=== PATIENT | female | born 1955 | race Caucasian/White ===

== ENCOUNTER 2016-08-16 14:42 | Outpatient (CLI) | payer MEDICARE | END 2016-08-16 14:43 | disposition home or self-care (01) | DX: M19.071 Primary osteoarthritis, right ankle and foot (principal); M20.11 Hallux valgus (acquired), right foot; M79.671 Pain in right foot ==

== ENCOUNTER 2016-08-23 09:02 | Outpatient (CLI) | payer MEDICARE | END 2016-08-23 09:03 | disposition home or self-care (01) | DX: E78.5 Hyperlipidemia, unspecified (principal); E03.9 Hypothyroidism, unspecified; R10.9 Unspecified abdominal pain ==

== ENCOUNTER 2017-02-22 13:14 | Outpatient (CLI) | payer MEDICARE ==
[2017-02-22 18:46] LABS: THYROID STIMULATING HORMONE 0.56 uIU/mL (0.34-5.60)
[2017-02-22 19:29] LABS: ALBUMIN/GLOBULIN RATIO 1.5 (1.0-2.2); BILIRUBIN,TOTAL 0.7 mg/dL (0.2-1.0); CALCIUM 9.1 mg/dL (8.5-10.3); CREATININE 1.1 mg/dL (0.4-1.0); POTASSIUM 3.7 mmol/L (3.5-5.0); TOTAL PROTEIN 6.6 g/dL (6.7-8.2)
== END 2017-02-22 13:15 | disposition home or self-care (01) ==
LOC: LAB.F 13:14
PROVIDERS: ATTEND Physician Assistant
DX: E03.9 Hypothyroidism, unspecified (principal)
CPT/HCPCS: 36415; 80053; 84436; 84443

== ENCOUNTER 2017-04-11 13:04 | Outpatient (CLI) | payer MEDICARE | END 2017-04-11 13:05 | disposition home or self-care (01) | LOC: SC 13:04 | PROVIDERS: ATTEND Internal Medicine Pulmonary Disease | DX: G47.10 Hypersomnia, unspecified (principal); G47.8 Other sleep disorders; R51 Headache; R06.83 Snoring | CPT/HCPCS: 99203; G0463; 99212 ==

== ENCOUNTER 2017-08-28 13:33 | Outpatient (CLI) | payer MEDICARE | END 2017-08-28 13:34 | disposition home or self-care (01) | LOC: SC 13:33 | PROVIDERS: ATTEND Internal Medicine Pulmonary Disease | DX: G47.00 Insomnia, unspecified (principal); R53.83 Other fatigue | CPT/HCPCS: 99214; G0463; 99212 ==

== ENCOUNTER 2017-09-05 11:59 | Outpatient (CLI) | payer MEDICARE ==
--- NOTE | 2017-09-06 13:25 | Mammography Report ---
DIGITAL SCREENING MAMMOGRAM: 09/05/2017 CLINICAL INDICATION: A 62-year-old nulliparous patient, for screening. COMPARISON: 06/2014, 04/2013, 02/2012, 09/2008. TECHNIQUE: Routine CC and MLO projections were obtained of the breasts. FINDINGS: Parenchymal tissue within the breasts is predominantly fatty replaced. There are no dominant masses, suspicious microcalcifications, or secondary signs of malignancy. In comparison to the previous studies, there are no significant changes. IMPRESSION: NO MAMMOGRAPHIC EVIDENCE OF MALIGNANCY. NO SIGNIFICANT INTERVAL CHANGES. RECOMMENDATION: Screening mammography is recommended annually. BIRADS category 1 - negative. STANDARD QUALIFYING STATEMENTS: 1. This examination was reviewed with the aid of Computed-Aided Detection (CAD). 2. A negative or benign imaging report should not delay biopsy if clinically suspicious findings are present. Consider surgical consultation if warranted. More than 5% of cancers are not identified by imaging. 3. Dense breasts may obscure an underlying neoplasm. TD: 09/06/2017 13:24
== END 2017-09-05 12:00 | disposition home or self-care (01) ==
LOC: DI 11:59
PROVIDERS: ATTEND Physician Assistant
DX: Z12.31 Encounter for screening mammogram for malignant neoplasm of breast (principal)
CPT/HCPCS: 77067

== ENCOUNTER 2017-09-11 07:32 | Outpatient (CLI) | payer MEDICARE ==
[2017-09-11 08:27] LABS: BASOPHILS # (AUTO) 0.1 10^3/uL (0.0-0.1); BASOPHILS % (AUTO) 0.6 %; EOSINOPHILS # (AUTO) 0.2 10^3/uL (0.0-0.7); EOSINOPHILS % (AUTO) 1.7 %; HGB - HEMOGLOBIN 15.9 g/dL (12.0-16.0); LYMPHOCYTES # (AUTO) 4.1 10^3/uL (1.5-3.5); LYMPHOCYTES % (AUTO) 36.8 %; MEAN CORPUSCULAR HEMOGLOBIN 30.3 pg (27.0-31.0); MEAN CORPUSCULAR HGB CONC 33.9 g/dL (32.0-36.0); MEAN CORPUSCULAR VOLUME 89.3 fL (81.0-99.0); MEAN PLATELET VOLUME 6.1 fL (7.9-10.8); MONOCYTES # (AUTO) 0.8 10^3/uL (0.0-1.0); MONOCYTES % (AUTO) 7.3 %; NEUTROPHILS % (AUTO) 53.6 %; PLT - PLATELET COUNT 356 10^3/uL (130-450); RED BLOOD COUNT 5.26 10^6/uL (4.20-5.40); RED CELL DISTRIBUTION WIDTH 13.2 % (12.0-15.0); WHITE BLOOD COUNT 11.2 x10^3/uL (4.8-10.8)
[2017-09-11 08:48] LABS: ALBUMIN/GLOBULIN RATIO 1.1 (1.0-2.2); ALKALINE PHOSPHATASE 70 IU/L (42-121); ALT ALANINE AMINOTRANSFERASE 24 IU/L (10-60); AST ASPARTATE AMINOTRANSFERASE 19 IU/L (10-42); BILIRUBIN,TOTAL 0.6 mg/dL (0.2-1.0); BUN - BLOOD UREA NITROGEN 16 mg/dL (6-20); CARBON DIOXIDE - CO2 19 mmol/L (21-32); CHLORIDE 106 mmol/L (101-111); CHOL/HDL RATIO 3.9 (<4.4); CHOLESTEROL 209 mg/dL; CREATININE 1.1 mg/dL (0.4-1.0); GFR - MDRD 51 (>89); GLUCOSE 106 mg/dL (70-100); HDL CHOLESTEROL 54 mg/dL; LDL CHOLESTEROL,CALCULATED 122 mg/dL; LDL/HDL RATIO 2.3 (<4.4); SODIUM 134 mmol/L (135-145); TOTAL PROTEIN 7.5 g/dL (6.7-8.2); VLDL CHOLESTEROL 33 mg/dL
== END 2017-09-11 07:33 | disposition home or self-care (01) ==
LOC: LAB 07:32
PROVIDERS: ATTEND Physician Assistant
DX: E78.5 Hyperlipidemia, unspecified (principal); E03.9 Hypothyroidism, unspecified; R73.01 Impaired fasting glucose; R53.83 Other fatigue; R51 Headache
CPT/HCPCS: 36415; 80053; 80061; 83721; 84443; 85025

== ENCOUNTER 2017-10-06 11:06 | Outpatient (CLI) | payer MEDICARE ==
[2017-10-06 11:53] LABS: ALBUMIN 4.2 g/dL (3.2-5.5); ALBUMIN/GLOBULIN RATIO 1.4 (1.0-2.2); BILIRUBIN,TOTAL 0.5 mg/dL (0.2-1.0); CALCIUM 9.2 mg/dL (8.5-10.3); CREATININE 1.1 mg/dL (0.4-1.0); TOTAL PROTEIN 7.3 g/dL (6.7-8.2)
== END 2017-10-06 11:07 | disposition home or self-care (01) ==
LOC: LAB 11:06
PROVIDERS: ATTEND Nurse Practitioner Family
DX: R10.9 Unspecified abdominal pain (principal); R19.7 Diarrhea, unspecified; Z93.9 Artificial opening status, unspecified
CPT/HCPCS: 36415; 80053

== ENCOUNTER 2017-10-18 22:05 | Outpatient (CLI) | payer MEDICARE | END 2017-10-18 22:06 | disposition home or self-care (01) | LOC: SC 22:05 | PROVIDERS: ATTEND Internal Medicine Pulmonary Disease | DX: G47.10 Hypersomnia, unspecified (principal); R06.83 Snoring | CPT/HCPCS: 95810 ==

== ENCOUNTER 2017-11-20 13:02 | Outpatient (CLI) | payer MEDICARE | END 2017-11-20 13:03 | disposition home or self-care (01) | LOC: SC 13:02 | PROVIDERS: ATTEND Internal Medicine Pulmonary Disease | DX: G47.21 Circadian rhythm sleep disorder, delayed sleep phase type (principal); G47.00 Insomnia, unspecified | CPT/HCPCS: 99213; G0463; 99212 ==

== ENCOUNTER 2017-12-29 09:43 | Outpatient (CLI) | payer MEDICARE ==
[2017-12-29 10:22] LABS: BASOPHILS # (AUTO) 0.1 10^3/uL (0.0-0.1); BASOPHILS % (AUTO) 1.1 %; EOSINOPHILS # (AUTO) 0.2 10^3/uL (0.0-0.7); EOSINOPHILS % (AUTO) 1.9 %; LYMPHOCYTES # (AUTO) 2.5 10^3/uL (1.5-3.5); LYMPHOCYTES % (AUTO) 31.7 %; MEAN CORPUSCULAR HEMOGLOBIN 30.7 pg (27.0-31.0); MEAN CORPUSCULAR HGB CONC 33.4 g/dL (32.0-36.0); MEAN PLATELET VOLUME 5.9 fL (7.9-10.8); MONOCYTES # (AUTO) 0.6 10^3/uL (0.0-1.0); NEUTROPHILS # (AUTO) 4.6 10^3/uL (1.5-6.6); NEUTROPHILS % (AUTO) 58.3 %; PLT - PLATELET COUNT 306 10^3/uL (130-450); RED CELL DISTRIBUTION WIDTH 13.2 % (12.0-15.0); WHITE BLOOD COUNT 7.9 x10^3/uL (4.8-10.8)
[2017-12-29 10:42] LABS: ALBUMIN 3.6 g/dL (3.2-5.5); ALBUMIN/GLOBULIN RATIO 1.1 (1.0-2.2); ALKALINE PHOSPHATASE 67 IU/L (42-121); ALT ALANINE AMINOTRANSFERASE 28 IU/L (10-60); AST ASPARTATE AMINOTRANSFERASE 22 IU/L (10-42); BILIRUBIN,TOTAL 0.5 mg/dL (0.2-1.0); BUN - BLOOD UREA NITROGEN 12 mg/dL (6-20); CALCIUM 9.1 mg/dL (8.5-10.3); CARBON DIOXIDE - CO2 24 mmol/L (21-32); CHLORIDE 108 mmol/L (101-111); CHOL/HDL RATIO 2.7 (<4.4); CHOLESTEROL 170 mg/dL; CREATININE 1.1 mg/dL (0.4-1.0); GFR - MDRD 51 (>89); GLUCOSE 109 mg/dL (70-100); HDL CHOLESTEROL 62 mg/dL; LDL CHOLESTEROL,CALCULATED 89 mg/dL; LDL/HDL RATIO 1.4 (<4.4); SODIUM 139 mmol/L (135-145); VLDL CHOLESTEROL 19 mg/dL
[2017-12-29 10:52] LABS: T4 (THYROXINE) 7.75 ug/dL (6.09-12.23)
[2017-12-29 10:53] LABS: THYROID STIMULATING HORMONE 0.62 uIU/mL (0.34-5.60)
[2017-12-29 11:00] LABS: FERRITIN 64.6 ng/mL (11.0-306.8)
== END 2017-12-29 09:44 | disposition home or self-care (01) ==
LOC: LAB 09:43
PROVIDERS: ATTEND Nurse Practitioner Family
DX: E78.5 Hyperlipidemia, unspecified (principal); R53.83 Other fatigue; E03.9 Hypothyroidism, unspecified; E55.9 Vitamin D deficiency, unspecified; N28.9 Disorder of kidney and ureter, unspecified; K51.80 Other ulcerative colitis without complications; N18.1 Chronic kidney disease, stage 1
CPT/HCPCS: 36415; 80053; 80061; 82306; 82607; 82728; 83721; 84436; 84443; 84481; 85025

== ENCOUNTER 2017-12-29 10:30 | Outpatient (CLI) | payer MEDICARE ==
--- NOTE | 2017-12-29 15:38 | XRAY Report ---
LEFT KNEE: 12/29/2017 HISTORY: Pain. FINDINGS: Three views of the left knee show mild medial knee joint space narrowing and spurring. The lateral knee joint and patellofemoral articulation appear well maintained. No fracture, malalignment, joint effusion or other abnormality. IMPRESSION: MILD LEFT MEDIAL KNEE JOINT DEGENERATIVE CHANGE. TD: 12/29/2017 15:03
--- NOTE | 2017-12-29 15:40 | XRAY Report ---
TWO VIEW LUMBAR SPINE: 12/29/2017 HISTORY: Back pain. COMPARISON: MRI 06/03/2010. TECHNIQUE: Two views of the lumbar spine. FINDINGS: There has been progressive anterolisthesis of L4 on L5 now measuring approximately 1 cm. The L4-L5 disc space is moderately narrowed and there are bilateral L4 pars interarticularis defects. Chronic compression deformity of L2 is similar to previous. Minimal retrolisthesis L2 with respect to L3. Minor lumbar levoscoliosis. Alignment otherwise unremarkable. Multiple surgical clips in the pelvis. Right upper quadrant calcifications consistent with gallstones. Confirmation by ultrasound may be useful. IMPRESSION: 1. 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 2. CHRONIC L2 DEFORMITY WITH SLIGHT RETROLISTHESIS L2 WITH RESPECT TO L3. 3. PROBABLE GALLSTONES. CONFIRMATION COULD BE MADE BY LIMITED RIGHT UPPER QUADRANT ULTRASOUND. TD: 12/29/2017 15:13 ARIA
== END 2017-12-29 10:31 | disposition home or self-care (01) ==
LOC: DI 10:30
PROVIDERS: ATTEND Nurse Practitioner Family
DX: M25.562 Pain in left knee (principal); M17.12 Unilateral primary osteoarthritis, left knee; M43.16 Spondylolisthesis, lumbar region; M41.86 Other forms of scoliosis, lumbar region; E78.5 Hyperlipidemia, unspecified; R53.83 Other fatigue; E03.9 Hypothyroidism, unspecified; E55.9 Vitamin D deficiency, unspecified; N28.9 Disorder of kidney and ureter, unspecified; K51.80 Other ulcerative colitis without complications; N18.1 Chronic kidney disease, stage 1
CPT/HCPCS: 36415; 72100; 80053; 80061; 82306; 82607; 82728; 83721; 84436; 84443; 84481; 85025

== ENCOUNTER 2018-03-07 13:32 | Outpatient (CLI) | payer OTHER, MEDICARE | END 2018-03-07 13:33 | disposition critical access hospital (66) | LOC: EMS 13:32 | PROVIDERS: ATTEND Surgery | DX: M25.512 Pain in left shoulder (principal); M54.5 Low back pain; V47.5XXA Car driver injured in collision with fixed or stationary object in traffic accident, initial encounter; Y93.C2 Activity, hand held interactive electronic device; Y92.414 Local residential or business street as the place of occurrence of the external cause | CPT/HCPCS: A0425; A0429 ==

== ENCOUNTER 2018-03-07 13:33 | Emergency (ER) | payer OTHER, MEDICARE ==
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
[2018-03-07] MEDS ORDERED: LORazepam 0.5 MG TABLET PO STA (14:27)
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
[2018-03-07 14:58] VITALS: BP 118/78
== END 2018-03-07 14:59 | disposition home or self-care (01) ==
LOC: EDUNIT# → ED 13:33
DX: S39.92XA Unspecified injury of lower back, initial encounter (principal); S09.90XA Unspecified injury of head, initial encounter; S80.02XA Contusion of left knee, initial encounter; S43.402A Unspecified sprain of left shoulder joint, initial encounter; V49.40XA Driver injured in collision with unspecified motor vehicles in traffic accident, initial encounter; Y93.C2 Activity, hand held interactive electronic device; E03.9 Hypothyroidism, unspecified; E78.00 Pure hypercholesterolemia, unspecified; Z96.659 Presence of unspecified artificial knee joint
CPT/HCPCS: 72125; 73030; 73564; 99282; 99283; A9270

== ENCOUNTER 2018-08-21 13:59 | Outpatient (CLI) | payer MEDICARE ==
[2018-08-21 15:01] LABS: CORTISOL 3.3 ug/dL
[2018-08-21 15:05] LABS: THYROID STIMULATING HORMONE 0.4 uIU/mL (0.34-5.60)
[2018-08-21 15:07] LABS: FREE T4 (FREE THYROXINE) 1.09 ng/dL (0.58-1.64)
== END 2018-08-21 14:00 | disposition home or self-care (01) ==
LOC: LAB 13:59
PROVIDERS: ATTEND Naturopath
DX: E03.9 Hypothyroidism, unspecified (principal); R53.83 Other fatigue
CPT/HCPCS: 36415; 82533; 82627; 84439; 84443; 84481

== ENCOUNTER 2019-02-20 09:54 | Outpatient (CLI) | payer MEDICARE ==
[2019-02-20 10:24] LABS: BASOPHILS # (AUTO) 0.1 10^3/uL (0.0-0.1); BASOPHILS % (AUTO) 0.4 %; EOSINOPHILS # (AUTO) 0.2 10^3/uL (0.0-0.7); EOSINOPHILS % (AUTO) 1.5 %; LYMPHOCYTES % (AUTO) 25.8 %; MEAN CORPUSCULAR HEMOGLOBIN 30.3 pg (27.0-31.0); MEAN CORPUSCULAR HGB CONC 33.3 g/dL (32.0-36.0); MEAN CORPUSCULAR VOLUME 90.9 fL (81.0-99.0); MEAN PLATELET VOLUME 7.9 fL (7.9-10.8); MONOCYTES % (AUTO) 8.1 %; NEUTROPHILS # (AUTO) 7.5 10^3/uL (1.5-6.6); NEUTROPHILS % (AUTO) 63.8 %; PLT - PLATELET COUNT 348 10^3/uL (130-450); RED BLOOD COUNT 4.95 10^6/uL (4.20-5.40); RED CELL DISTRIBUTION WIDTH 12.7 % (12.0-15.0); WHITE BLOOD COUNT 11.7 x10^3/uL (4.8-10.8)
[2019-02-20 10:42] LABS: ALBUMIN 3.6 g/dL (3.2-5.5); ALBUMIN/GLOBULIN RATIO 0.9 (1.0-2.2); BILIRUBIN,TOTAL 0.6 mg/dL (0.2-1.0); CALCIUM 9.1 mg/dL (8.5-10.3); CRP - C-REACTIVE PROTEIN 1.8 mg/dL (0-1.0); TOTAL PROTEIN 7.4 g/dL (6.7-8.2)
== END 2019-02-20 09:55 | disposition home or self-care (01) ==
LOC: LAB 09:54
PROVIDERS: ATTEND Internal Medicine
DX: E03.9 Hypothyroidism, unspecified (principal); E78.5 Hyperlipidemia, unspecified; M79.10 Myalgia, unspecified site; Z79.899 Other long term (current) drug therapy
CPT/HCPCS: 36415; 80053; 84443; 85025; 85651; 86140

== ENCOUNTER 2019-02-22 | Outpatient (CLI) | payer MEDICARE | END 2019-02-22 10:56 | disposition home or self-care (01) ==

== ENCOUNTER 2019-03-21 14:06 | Outpatient (CLI) | payer MEDICARE ==
[2019-03-21 14:35] LABS: HGB - HEMOGLOBIN 14.2 g/dL (12.0-16.0); MEAN CORPUSCULAR HEMOGLOBIN 30.3 pg (27.0-31.0); MEAN CORPUSCULAR HGB CONC 32.4 g/dL (32.0-36.0); MEAN CORPUSCULAR VOLUME 93.6 fL (81.0-99.0); MEAN PLATELET VOLUME 7.9 fL (7.9-10.8); RED BLOOD COUNT 4.68 10^6/uL (4.20-5.40); RED CELL DISTRIBUTION WIDTH 12.5 % (12.0-15.0); WHITE BLOOD COUNT 12.6 x10^3/uL (4.8-10.8)
[2019-03-21 14:53] LABS: CRP - C-REACTIVE PROTEIN 9.5 mg/dL (0-1.0); URIC ACID 4.3 mg/dL (2.6-7.2)
[2019-03-21 19:48] LABS: RHEUMATOID FACTOR NEGATIVE (Negative)
[2019-03-23 15:21] LABS: ANA SCREEN NEGATIVE (NEGATIVE)
== END 2019-03-21 14:07 | disposition home or self-care (01) ==
LOC: LAB 14:06
PROVIDERS: ATTEND Nurse Practitioner
DX: M35.3 Polymyalgia rheumatica (principal)
CPT/HCPCS: 36415; 84550; 85027; 85651; 86038; 86140; 86200; 86430

== ENCOUNTER 2019-03-28 18:24 | Outpatient (CLI) | payer MEDICARE, MEDICAID | END 2019-03-28 18:25 | disposition EMS.NT | LOC: EMS 18:24 | PROVIDERS: ATTEND Surgery | DX: R10.9 Unspecified abdominal pain (principal); R11.0 Nausea ==

== ENCOUNTER 2019-03-28 18:53 | Inpatient (IN) | payer MEDICARE, MEDICAID ==
[2019-03-28 20:29] LABS: BASOPHILS % (AUTO) 0.2 %; EOSINOPHILS % (AUTO) 0.2 %; LYMPHOCYTES % (AUTO) 15.5 %; MEAN CORPUSCULAR HEMOGLOBIN 29.5 pg (27.0-31.0); MEAN CORPUSCULAR HGB CONC 33.8 g/dL (32.0-36.0); MEAN CORPUSCULAR VOLUME 87.4 fL (81.0-99.0); MEAN PLATELET VOLUME 7.7 fL (7.9-10.8); MONOCYTES # (AUTO) 0.6 10^3/uL (0.0-1.0); MONOCYTES % (AUTO) 4.7 %; NEUTROPHILS # (AUTO) 10.1 10^3/uL (1.5-6.6); NEUTROPHILS % (AUTO) 78.9 %; PLT - PLATELET COUNT 435 10^3/uL (130-450); RED BLOOD COUNT 5.08 10^6/uL (4.20-5.40); RED CELL DISTRIBUTION WIDTH 12.4 % (12.0-15.0); WHITE BLOOD COUNT 12.8 x10^3/uL (4.8-10.8)
--- NOTE | 2019-03-28 20:32 | ED Physician Documentation ---
PD HPI ABD PAIN - Stated complaint Stated Complaint: ABD PX - Chief complaint Chief Complaint: Abd Pain - History obtained from History obtained from: Patient - History of Present Illness Timing - onset: How many hours ago (8), Today (this morning at 11 am) Timing - duration: Hours (8) Timing - details: Abrupt onset (She had onset of mid abdominal crampy pain associated with nausea at 11:00 this morning. She states she noted decreased output from her ileostomy around that time and since. She had not had any vomiting until arrival to the ER and is vomited here. She had less appetite. She tried eating some at lunchtime but had a increased fullness with just a little bit to eat. She is feeling bloated nauseous and with less output from her ostomy.), Still present Quality: Cramping, Aching, Fullness/distended, Pain Location: All over / everywhere Improved by: Laying still Worsened by: Eating Associated symptoms: Nausea, Loss of appetite. No: Fever, Diarrhea, Constipation, Near syncope / syncope Similar symptoms before: Has not had sx before Recently seen: Not recently seen Review of Systems Constitutional: denies: Fever Nose: denies: Rhinorrhea / runny nose, Congestion Throat: denies: Sore throat Respiratory: denies: Cough GI: reports: Abdominal Pain, Abdominal Swelling, Nausea. denies: Constipation, Diarrhea (She has had just a small watery output from her ileostomy since this morning. No common output. She had had normal output from her stoma recently until this morning.) : denies: Dysuria, Frequency Musculoskeletal: denies: Neck pain, Back pain Neurologic: denies: Generalized weakness, Focal weakness, Numbness, Difficulty speaking, Near syncope Endocrine: denies: Weight loss Immunocompromised: denies: Immunocompromised PD PAST MEDICAL HISTORY - Past Medical History Cardiovascular: High cholesterol, Other Respiratory: Other Endocrine/Autoimmune: HyPOthyroidism GI: GERD, Ulcerative colitis : Incontinence Psych: Depression, Anxiety, Panic attacks Musculoskeletal: Osteoarthritis, Other Derm: Other - Past Surgical History Past Surgical History: Yes General: Bowel surgery, Colonoscopy Ortho: Knee replacement, Arthroscopic surgery HEENT: Tonsil/Adenoidectomy - Present Medications Home Medications: Ambulatory Orders Medication Instructions Recorded Confirmed FLUoxetine [PROzac] 40 mg PO DAILY 12/18/13 10/20/14 Levothyroxine Inj [Synthroid Inj] 100 mcg ORAL DAILY 12/18/13 10/20/14 Topiramate 25 mg PO DAILY 12/18/13 10/20/14 buPROPion [Wellbutrin Sr] 450 mg PO DAILY 12/18/13 10/20/14 Atorvastatin [Lipitor] 20 mg PO DAILY 10/08/14 10/20/14 Omeprazole 20 mg PO DAILY 10/08/14 10/20/14 Mv-Min/Vit C/Glu/Latha HCl/Hc124 1 each PO DAILY 10/20/14 10/20/14 [Airborne Effervescent Tablet] Potassium Gluconate 550 mg PO DAILY 10/20/14 10/20/14 Vitamin B Complex/Folic Acid 1 tab PO DAILY 10/20/14 10/20/14 [Vitamin B-100 Complex Tablet] - Allergies Allergies/Adverse Reactions: Allergies Allergy/AdvReac Type Severity Reaction Status Date / Time hydrocodone bitartrate * Allergy Mild Itching Verified 10/08/14 11:19 [From Vicodin] Penicillins Allergy Unknown Unknown Verified 10/08/14 11:19 Sulfa (Sulfonamide Allergy Unknown Unknown Verified 10/08/14 11:19 Antibiotics) hydrocodone AdvReac Severe Chest pain Verified 10/20/14 12:39 /SOB oxycodone HCl * AdvReac Severe Chest Verified 10/20/14 12:39 [From OxyContin] Pain/SOB - Social History Does the pt smoke?: No Smoking Status: Never smoker Does the pt drink ETOH?: Yes Does the pt have substance abuse?: No - POLST Patient has POLST: No PD ED PE NORMAL - Vitals Vital signs reviewed: Yes - General General: Alert and oriented X 3, Well developed/nourished - HEENT HEENT: Pharynx benign. No: Moist mucous membranes - Neck Neck: Supple, no meningeal sign, No adenopathy - Cardiac Cardiac: RRR, No murmur - Respiratory Respiratory: Clear bilaterally - Abdomen Abdomen: Soft, No organomegaly, Other (She has some distention without tenseness. There is general tenderness. She has a ileostomy in the right lower mid abdomen with minimal output in the bag. Bowel sounds are present is moderately hyperactive. She is generally tender without any focality. The right upper quadrant is not particularly tender. There is no percussion or rebound tenderness.) - Female Female : Deferred - Rectal Rectal: Deferred - Back Back: No CVA TTP - Derm Derm: Normal color, Warm and dry - Extremities Extremities: No tenderness to palpate, Normal ROM s pain, No edema, No calf tenderness / cord - Neuro Neuro: Alert and oriented X 3, No motor deficit, Normal speech Results - Vitals Vitals: Vital Signs - 24 hr 03/28/19 03/28/19 18:58 22:22 Temperature 36.3 C L 36.3 C L Heart Rate 68 70 Respiratory 18 15 Rate Blood Pressure 125/87 H 111/72 O2 Saturation 100 97 Oxygen O2 Source Room air - Labs Labs: Laboratory Tests 03/28/19 03/28/19 03/28/19 20:22 20:22 20:22 WBC 12.8 H RBC 5.08 Hgb 15.0 Hct 44.4 MCV 87.4 MCH 29.5 MCHC 33.8 RDW 12.4 Plt Count 435 MPV 7.7 L Neut # (Auto) 10.1 H Lymph # (Auto) 2.0 [place] # (Auto) 0.6 Eos # (Auto) 0.0 Baso # (Auto) 0.0 Absolute Nucleated RBC 0.00 Nucleated RBC % 0.0 Sodium 137 Potassium 3.7 Chloride 108 Carbon Dioxide 16 L Anion Gap 13.0 BUN 14 Creatinine 0.9 Estimated GFR (MDRD) 63 L Glucose 135 H Calcium 9.3 Magnesium 2.4 Total Bilirubin 0.6 AST 13 ALT 18 Alkaline Phosphatase 74 Total Protein 8.1 Albumin 3.4 Globulin 4.7 H Albumin/Globulin Ratio 0.7 L Lipase 42 TSH 03/28/19 20:22 WBC RBC Hgb Hct MCV MCH MCHC RDW Plt Count MPV Neut # (Auto) Lymph # (Auto) [place] # (Auto) Eos # (Auto) Baso # (Auto) Absolute Nucleated RBC Nucleated RBC % Sodium Potassium Chloride Carbon Dioxide Anion Gap BUN Creatinine Estimated GFR (MDRD) Glucose Calcium Magnesium Total Bilirubin AST ALT Alkaline Phosphatase Total Protein Albumin Globulin Albumin/Globulin Ratio Lipase TSH 2.83 - Rads (name of study) abd xray Radiology: Prelim report reviewed (Air-fluid levels suggestive of partial bowel obstruction. No free air.), See rad report PD MEDICAL DECISION MAKING - ED course Complexity details: reviewed results (Our CT scanner is not working at this time. Flat and upright abdomen however were diagnostic of air-fluid levels consistent with her clinical picture of a bowel obstruction. She did have vomiting here in the department but is not feeling nauseated still. I talked with Dr. Menendez on-call for surgery who will consult on the patient. I talked with Dr. Peña who is on for hospitalist service. Dr. Menendez's direction is the patient did not necessarily need an NG tube and that she has further vomiting.), re-evaluated patient, considered differential, d/w patient, d/w bank consultant Departure - Departure Disposition: 66 [facility] DC/Xfer Clinical Impression: Partial small bowel obstruction Nausea and vomiting Qualifiers: Vomiting type: unspecified Vomiting Intractability: non-intractable Qualified Code(s): R11.2 - Nausea with vomiting, unspecified Abdominal pain Qualifiers: Abdominal location: generalized Qualified Code(s): R10.84 - Generalized abdominal pain Condition: Stable Discharge Date/Time: 03/28/19 23:22
[2019-03-28 20:41] LABS: ALBUMIN 3.4 g/dL (3.2-5.5); ALBUMIN/GLOBULIN RATIO 0.7 (1.0-2.2); BILIRUBIN,TOTAL 0.6 mg/dL (0.2-1.0); CALCIUM 9.3 mg/dL (8.5-10.3); CREATININE 0.9 mg/dL (0.4-1.0); TOTAL PROTEIN 8.1 g/dL (6.7-8.2)
[2019-03-28] MEDS ORDERED: ONDANSETRON 4 MG/2 ML VIAL IVP STA (20:51)
[2019-03-28] MEDS ORDERED: KETOROLAC 15 MG/ML VIAL IVP STA (20:51)
[2019-03-28] MEDS ORDERED: HYDROmorphone 1 MG/ML CARPUJECT IVP STA (20:51)
[2019-03-28] MEDS ORDERED: SODIUM CHLORIDE 0.9% 1,000 ML IV ONE (20:51)
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
--- NOTE | 2019-03-28 22:57 | HISTORY & PHYSICAL EXAMINATION ---
Chief Complaint - Chief Complaint Chief Complaint: Abdominal cramping History of Present Illness - Admitted From Admitted From:: Home - History Obtained From Records Reviewed: Yes History obtained from: Patient, ER Physician - History of Present Illness HPI Comment/Other: This is a 64 year old female with a past medical history significant for ulcer ative colitis s/p colectomy with end ileostomy, depression and hypothyroidism who presents from home due to worsening abdominal cramping and pain. The pain began around 11am but progressed throughout the evening and so she seeked medical attention as she felt she would not last through the night with the pain. Her pain has improved since receiving IV pain medication in the ER. She did not have associated nausea or vomiting but did have an episode of vomiting while in the ER. She also noticed decreased output from her ileostomy that began this morning. She reports no change in the color of the output and that it was nonbloody. She did notice that it was more liquid than usual. She denies fevers and chills. She reports a history of ulcerative colitis and that she underwent colectomy in 1977. In the ER, she was afebrile, normotensive and without tachycardia. Labs were significant for an elevated white count and decreased bicarbonate. Abdominal film suggestive of small bowel obstruction with transition zone in the mid to right lower quadrant. She will be admitted for further management. History - Past Medical History Cardiovascular: reports: High cholesterol, Other Respiratory: reports: Other Endocrine/Autoimmune: reports: HyPOthyroidism GI: reports: GERD, Ulcerative colitis : reports: Incontinence Psych: reports: Depression, Anxiety, Panic attacks Musculoskeletal: reports: Osteoarthritis, Fibromyalgia Derm: reports: Other MRSA Hx?: No - Past Surgical History General: reports: Bowel surgery, Colonoscopy Ortho: reports: Knee replacement, Arthroscopic surgery HEENT: reports: Tonsil/Adenoidectomy - Family & Social History Family History: Mother: Family History Comment/Other: She reports that her mother from a myocardial infarction at the age of 42. Her mother and father had diabetes. Her father also had ulcerative colitis and crohns disease. Living arrangement: At home Living Situation: Alone Social History Notes: She is currently disabled and is not employed. She lives alone with her cat. She does not smoke and rarely drinks alcohol. She does use CBD oil and has been using it for the past four weeks. - POLST Patient has POLST: No Meds/Allgy - Home Medications Home Medications: Ambulatory Orders Medication Instructions Recorded Confirmed FLUoxetine [PROzac] 40 mg PO DAILY 12/18/13 10/20/14 Levothyroxine Inj [Synthroid Inj] 100 mcg ORAL DAILY 12/18/13 10/20/14 Topiramate 25 mg PO DAILY 12/18/13 10/20/14 buPROPion [Wellbutrin Sr] 450 mg PO DAILY 12/18/13 10/20/14 Atorvastatin [Lipitor] 20 mg PO DAILY 10/08/14 10/20/14 Omeprazole 20 mg PO DAILY 10/08/14 10/20/14 Mv-Min/Vit C/Glu/Latha HCl/Hc124 1 each PO DAILY 10/20/14 10/20/14 [Airborne Effervescent Tablet] Potassium Gluconate 550 mg PO DAILY 10/20/14 10/20/14 Vitamin B Complex/Folic Acid 1 tab PO DAILY 10/20/14 10/20/14 [Vitamin B-100 Complex Tablet] - Allergies Allergies/Adverse Reactions: Allergies Allergy/AdvReac Type Severity Reaction Status Date / Time hydrocodone bitartrate * Allergy Mild Itching Verified 10/08/14 11:19 [From Vicodin] Penicillins Allergy Unknown Unknown Verified 10/08/14 11:19 Sulfa (Sulfonamide Allergy Unknown Unknown Verified 10/08/14 11:19 Antibiotics) hydrocodone AdvReac Severe Chest pain Verified 10/20/14 12:39 /SOB oxycodone HCl * AdvReac Severe Chest Verified 10/20/14 12:39 [From OxyContin] Pain/SOB Review of Systems - Constitutional Constitutional: reports: Poor appetite. denies: Fever, Chills - Cardiovascular Cariovascular: denies: Exertional dyspnea, Decr. exercise tolerance - Respiratory Respiratory: denies: SOB at rest, SOB with exertion - Gastrointestinal Gastrointestinal: reports: Abdominal pain, Change in bowel habits, Vomiting, Poor appetite. denies: Black stools, Bloody stools - Genitourinary Genitourinary: denies: Dysuria, Frequency, Urgency, Hematuria - Musculoskeletal Musculoskeletal: reports: Back pain, Limited range of motion - Neurological Neurological: denies: General weakness - Psychiatric Psychiatric: reports: Depression - All Other Systems All Other Systems: reports: Reviewed and negative Prior Level of Functionality: Independent with ADL's. Ambulates with a walker at baseline. Exam - Vital Signs Reviewed Vital Signs: Yes Vital Signs: Vital Signs x48h Temp Pulse Resp BP Pulse Ox 03/28/19 22:22 36.3 C L 70 15 111/72 97 03/28/19 18:58 36.3 C L 68 18 125/87 H 100 - Physical Exam General Appearance: positive: No acute distress, Alert Eyes Bilateral: positive: Normal inspection ENT: positive: Dry mucous membranes. negative: No signs of dehydration Neck: positive: Nml inspection Respiratory: positive: No respiratory distress. negative: Wheezes, Rales, Rhonchi Cardiovascular: positive: Regular rate & rhythm. negative: Tachycardia, Bradycardia, Systolic murmur, Diastolic murmur Abdomen: positive: Non-tender, No distention, Other (Hyperactive bowel sounds. Ileostomy present with minimal output although the bag was emptied prior to examination.) Skin: positive: No rash, Warm, Dry Extremities: positive: Pedal edema (Trace edema in lower extremities) Neurologic/Psychiatric: positive: Oriented x3, Other (No focal motor deficits.). negative: Disoriented to person, Disoriented to place, Disoriented to time Conclusion/Plan - Problem List (1) Partial small bowel obstruction Conclusion/Plan: Presented with abdominal pain, nausea, and decreased output from ileostomy. Had one episode of emesis in the ER. Labs relatively unremarkable although bicarbonate is decreased at 16 but suspect this may be secondary to her Topiramate. Abdominal film suggestive of small bowel obstruction. No CT of the abdomen available as the machine is out of service tonight. - IV hydration with LR - Zofran PRN - Morphine PRN - If her nausea resolves and she has no further episodes of emesis, will advance to clear liquid diet in the AM otherwise will place NG tube if her symptoms persist - NPO for now - General surgery consult (2) Hypothyroidism Conclusion/Plan: On Synthroid at home. TSH is within normal limits. - Resume home Synthroid once taking PO (3) Depression Conclusion/Plan: She is on Fluoxetine at home. Stable. - Resume home medication once taking PO (4) Fibromyalgia Conclusion/Plan: This is a new diagnosis for her and she has been started on amitriptyline and gabapentin. Stable. - Restart home medications once dosage is confirmed and she is taking PO (5) History of ulcerative colitis Conclusion/Plan: She is s/p colectomy with end ileostomy in place. Stable. - Lab Results Lab results reviewed: Yes Fish Bones: 03/28/19 20:22 03/28/19 20:22 - Diagnostic Imaging Results Diagnostic Imaging Results: positive: Final report reviewed Core Measures - Anticipated LOS I expect patient to be DC'd or transferred within 96 hours.: Yes - Issues Hospital Issues and Management Plan: Small bowel obstruction requiring IV hydration, pain control and possible NG tube for decompression. - DVT/VTE - Prophylaxis VTE/DVT Device ordered at admit?: Yes VTE/DVT Prophylaxis med ordered at admit?: Yes
[2019-03-28] MEDS ORDERED: LACTATED RINGERS 1,000 ML IV SCH (23:00)
[2019-03-29] MEDS: MORPHINE 2 MG/ML CARPUJECT IVP PRN ×9 (00:22→21:07)
[2019-03-29] MEDS: PANTOPRAZOLE 40 MG VIAL IVP SCH ×2 (00:31→06:01)
[2019-03-29] MEDS: SODIUM CHLORIDE FLUSH 0.9% 10 ML SYRINGE IVP SCH ×3 (00:31→17:15)
[2019-03-29] MEDS: SODIUM CHLORIDE FLUSH 0.9% 10 ML SYRINGE IVP PRN ×3 (00:31→21:07)
[2019-03-29] MEDS: ONDANSETRON 4 MG/2 ML VIAL IVP PRN ×3 (03:54→18:26)
[2019-03-29] MEDS ORDERED: ACETAMINOPHEN 325 MG TABLET PO STA (05:14)
[2019-03-29] MEDS ORDERED: ACETAMINOPHEN 1,000 MG/100 ML 100 ML IV PRN (05:15)
[2019-03-29 05:58] LABS: BASOPHILS % (AUTO) 0.2 %; EOSINOPHILS % (AUTO) 0.2 %; HGB - HEMOGLOBIN 14.7 g/dL (12.0-16.0); LYMPHOCYTES # (AUTO) 1.7 10^3/uL (1.5-3.5); LYMPHOCYTES % (AUTO) 13.5 %; MEAN CORPUSCULAR HEMOGLOBIN 30.1 pg (27.0-31.0); MEAN CORPUSCULAR HGB CONC 33.4 g/dL (32.0-36.0); MEAN CORPUSCULAR VOLUME 90.2 fL (81.0-99.0); MEAN PLATELET VOLUME 7.7 fL (7.9-10.8); MONOCYTES # (AUTO) 0.7 10^3/uL (0.0-1.0); MONOCYTES % (AUTO) 5.4 %; NEUTROPHILS % (AUTO) 80.1 %; PLT - PLATELET COUNT 411 10^3/uL (130-450); RED BLOOD COUNT 4.88 10^6/uL (4.20-5.40); RED CELL DISTRIBUTION WIDTH 12.4 % (12.0-15.0); WHITE BLOOD COUNT 12.5 x10^3/uL (4.8-10.8)
[2019-03-29] MEDS: LEVOTHYROXINE 100 MCG TABLET PO SCH (06:01)
[2019-03-29 06:12] LABS: CREATININE 0.8 mg/dL (0.4-1.0); MAGNESIUM 2.4 mg/dL (1.7-2.8); PHOSPHORUS 3.8 mg/dL (2.5-4.6)
[2019-03-29] MEDS ORDERED: LIDOCAINE JELLY 2% 5 ML TUBE TOP ONE (10:04)
[2019-03-29] MEDS: HEPARIN 5,000 UNIT/ML VIAL SUBQ SCH ×2 (10:18→21:48)
[2019-03-29] MEDS: D5.45NS W/20 MEQ KCL 1,000 ML IV SCH ×2 (10:48→21:49)
[2019-03-29] MEDS ORDERED: BENZOCAINE/TETRACAINE/BUTAMBEN 20 GM MM PRN (11:42)
[2019-03-29] MEDS ORDERED: IOVERSOL 320 100 ML VIAL IVP ONE ×3 (11:47→13:27)
[2019-03-29] MEDS: FLUoxetine 10 MG CAPSULE PO SCH (12:38)
--- NOTE | 2019-03-29 12:39 | XRAY Report ---
Reason: NG at the place? Procedure Date: 03/29/2019 Accession Number: [id number] / [id number] Procedure: XR - Abdomen 1 View X-Ray CPT Code: 28294 FULL RESULT: EXAM: ABDOMEN RADIOGRAPHY EXAM DATE: 03/29/2019 12:13 PM. CLINICAL HISTORY: NG line placement. COMPARISON: ABDOMEN 2 VIEW 03/28/2019 9:17 PM. TECHNIQUE: 1 view. FINDINGS: Bowel Gas Pattern: Nasogastric tube courses out of the mediastinum and projects at the stomach. Distal sidehole projects at the proximal to midportion of the stomach. Other: Right upper quadrant calcifications appear stable. Fluid-filled borderline prominent small bowel in the left lower abdomen. Surgical clips in the true pelvis.. IMPRESSION: Distal aspect of nasogastric tube positioned at the stomach. RADIA
--- NOTE | 2019-03-29 13:40 | CT Report ---
Reason: SBO Procedure Date: 03/29/2019 Accession Number: [id number] / [id number] Procedure: CT - Abdomen/Pelvis W CPT Code: FULL RESULT: EXAM: CT ABDOMEN AND PELVIS EXAM DATE: 03/29/2019 01:25 PM. CLINICAL HISTORY: Small bowel obstruction. COMPARISONS: None. TECHNIQUE: Routine helical CT imaging was performed through the abdomen and pelvis. IV contrast: 90 mL Optiray 320. Enteric contrast: No. Reconstructions: Coronal and sagittal. In accordance with CT protocol optimization, one or more of the following dose reduction techniques were utilized for this exam: automated exposure control, adjustment of mA and/or KV based on patient size, or use of iterative reconstructive technique. FINDINGS: Lung Bases: Unremarkable. Liver: Normal. No masses. Gallbladder/Bile Ducts: Gallstones within nondistended gallbladder. No dilatation of the biliary system. Spleen: Normal. Pancreas: Normal. Adrenal Glands: Normal. Kidneys: Normal. No masses or hydronephrosis. 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 The intraluminal mid to distal small bowel is dilated with air-fluid levels. The proximal small bowel is of normal caliber. A nasogastric tube distal tip projects at the stomach. There is a small to moderate free fluid collection in the dependent portion of the pelvis. Pelvic Organs: Normal. The bladder and visualized pelvic organs are within normal limits. Vasculature: No aneurysms or other significant abnormality. Bones: There is grade 1 anterolisthesis of L4 on L5, with bilateral L4 pars interarticularis defects. There is moderate disk space narrowing at this level. There is a grade 1 compressive change at the anterior-superior endplate of L2. Other: None. IMPRESSION: Bowel obstruction within the parastomal hernia causing obstructive dilatation of the mid to distal small bowel. Small to moderate free fluid. Cholelithiasis. RADIA
[2019-03-29] MEDS ORDERED: DIATR MEGLU/DIATRIZOATE SODIUM 120 ML BOTTLE PO ONE (14:41)
--- NOTE | 2019-03-29 15:41 | PROVIDER PROGRESS NOTE ---
Subjective - Prog Note Date Prog Note Date: 03/29/19 - Subjective Pt reports feeling: No change Subjective: pt complain of nausea and vomiting, and mildly abdominal pain. NG tube was inserted to pt. pt denies fever, chill, shortness of breath, chest pain. Current Medications - Current Medications Current Medications: Active Medications Atorvastatin Calcium (Lipitor) 20 mg PO QPM [facility] Benzocaine/Butamben/Tetracaine HCl (Cetacaine [place]) 1 sprays MM Q6H PRN PRN Reason: PAIN Last Admin: 03/29/19 12:30 Dose: 1 sprays Fluoxetine HCl (Prozac) 40 mg PO DAILY [facility] Last Admin: 03/29/19 12:38 Dose: Not Given Gabapentin (Neurontin) 600 mg PO QPM [facility] Heparin Sodium (Porcine) () 5,000 unit SUBQ BID [facility] Last Admin: 03/29/19 10:18 Dose: 5,000 unit Acetaminophen (Ofirmev) 100 mls @ 400 mls/hr IV Q6HR PRN PRN Reason: PAIN Potassium Chloride/Dextrose/Sod Cl (D5.45ns W/20 Meq Kcl) 1,000 mls @ 100 mls/hr IV .Q10H [facility] Stop: 03/30/19 06:59 Last Admin: 03/29/19 10:48 Dose: 100 mls/hr Levothyroxine Sodium (Synthroid) 100 mcg PO QDAC [facility] Last Admin: 03/29/19 06:01 Dose: 100 mcg Morphine Sulfate (Morphine (Carpuject)) 2 mg IVP Q2HR PRN PRN Reason: Pain 8 to 10 Last Admin: 03/29/19 15:20 Dose: 2 mg Ondansetron HCl (Zofran Inj) 4 mg IVP Q6HR PRN PRN Reason: Nausea / Vomiting Last Admin: 03/29/19 10:46 Dose: 4 mg Pantoprazole Sodium (Protonix) 40 mg IVP QDAC [facility] Last Admin: 03/29/19 06:01 Dose: 40 mg Sodium Chloride (Normal Saline Flush 0.9%) 10 ml IVP PRN PRN PRN Reason: NEEDED PER PROVIDER ORDERS Last Admin: 03/29/19 06:01 Dose: 10 ml Sodium Chloride (Normal Saline Flush 0.9%) 10 ml IVP 0100,0900,1700 [facility] Last Admin: 03/29/19 10:25 Dose: Not Given Levothyroxine Inj [Synthroid Inj] 100 mcg ORAL DAILY 12/18/13 Atorvastatin [Lipitor] 20 mg PO DAILY 10/08/14 Omeprazole 20 mg PO DAILY 10/08/14 Amitriptyline HCl 25 mg PO QPM 03/29/19 Estradiol 1 tab PV Q7D 03/29/19 Fluoxetine HCl [Prozac] 80 mg PO DAILY 03/29/19 Gabapentin 600 mg PO QPM 03/29/19 LORazepam [Lorazepam] 1 mg PO Q8H PRN 03/29/19 Topiramate [Topamax] 200 mg PO DAILY 03/29/19 Zolpidem Tartrate 5 mg PO QPM 03/29/19 Objective - Vital Signs/Intake & Output Reviewed Vital Signs: Yes Vital Signs: Vital Signs x48h Temp Pulse Resp BP BP Pulse Ox 03/29/19 12:25 36.6 C 62 16 143/89 H 96 03/29/19 07:39 36.2 C L 59 L 16 144/77 H 96 Intake & Output: Intake & Output 03/26/19 03/27/19 03/28/19 03/29/19 23:59 23:59 23:59 23:59 Intake Total 1000 10 Balance 1000 10 - Objective General Appearance: positive: Alert, Mild distress. negative: Lethargic Eyes Bilateral: positive: Normal inspection, No lid inflammation, Conjunctivae nml ENT: positive: ENT inspection nml, Pharynx nml, No signs of dehydration. negative: Purulent nasal drainage, Pharyngeal erythema, Oral lesions Neck: positive: Nml inspection, Thyroid nml, No JVD, Trachea midline. negative: Thyromegaly, Lymphadenopathy (R), Lymphadenopathy (L), Stiff neck, Swelling/bruising, Tracheal deviation Respiratory: positive: Chest non-tender, No respiratory distress, Breath sounds nml. negative: Wheezes, Rales, Rhonchi Cardiovascular: positive: Regular rate & rhythm, No murmur, No gallop. negative: Irregularly irregular, Extrasystoles, Tachycardia, Bradycardia, JVD present, Systolic murmur, Diastolic murmur Peripheral Pulses: 2+ Radial (R), 2+ Radial (L), 2+ Dorsalis pedis (R), 2+ Dorsalis pedis (L) Abdomen: positive: Non-tender, No organomegaly, Nml bowel sounds, No distention, Other (ileostomy on the right). negative: Tenderness, Guarding, Rebound Back: positive: Nml inspection. negative: CVA tenderness (R), CVA tenderness (L) Skin: positive: Color nml, No rash, Warm, Dry. negative: Cyanosis, Diaphoresis, Pallor Extremities: positive: Non-tender, Nml appearance. negative: Calf tenderness, Mario's sign/cords Neurologic/Psychiatric: positive: Sensation nml, Mood/affect nml. negative: Weakness, Sensory loss, Facial droop, Slurred/abnml speech, Depressed mood/affect - Lab Results Fish Bones: 03/29/19 05:23 03/29/19 05:23 Other Labs: Lab Results x24hrs 03/29/19 03/29/19 03/28/19 Range/Units 05:23 05:23 23:09 WBC 12.5 H (4.8-10.8) x10^3/uL RBC 4.88 (4.20-5.40) 10^6/uL Hgb 14.7 (12.0-16.0) g/dL Hct 44.0 (37.0-47.0) % MCV 90.2 (81.0-99.0) fL MCH 30.1 (27.0-31.0) pg MCHC 33.4 (32.0-36.0) g/dL RDW 12.4 (12.0-15.0) % Plt Count 411 (130-450) 10^3/uL MPV 7.7 L (7.9-10.8) fL Neut # (Auto) 10.0 H (1.5-6.6) 10^3/uL Lymph # (Auto) 1.7 (1.5-3.5) 10^3/uL Douglas # (Auto) 0.7 (0.0-1.0) 10^3/uL Eos # (Auto) 0.0 (0.0-0.7) 10^3/uL Baso # (Auto) 0.0 (0.0-0.1) 10^3/uL Absolute Nucleated RBC 0.00 x10^3/uL Nucleated RBC % 0.0 /100WBC Sodium 139 (135-145) mmol/L Potassium 3.9 (3.5-5.0) mmol/L Chloride 112 H (101-111) mmol/L Carbon Dioxide 19 L (21-32) mmol/L Anion Gap 8.0 (6-13) BUN 15 (6-20) mg/dL Creatinine 0.8 (0.4-1.0) mg/dL Estimated GFR (MDRD) 73 L (>89) Glucose 129 H (70-100) mg/dL Lactic Acid 0.7 (0.5-2.2) mmol/L Calcium 9.0 (8.5-10.3) mg/dL Phosphorus 3.8 (2.5-4.6) mg/dL Magnesium 2.4 (1.7-2.8) mg/dL Total Bilirubin (0.2-1.0) mg/dL AST (10-42) IU/L ALT (10-60) IU/L Alkaline Phosphatase (42-121) IU/L Total Protein (6.7-8.2) g/dL Albumin (3.2-5.5) g/dL Globulin (2.1-4.2) g/dL Albumin/Globulin Ratio (1.0-2.2) Lipase (22-51) U/L TSH (0.34-5.60) uIU/mL 03/28/19 03/28/19 03/28/19 Range/Units 20:22 20:22 20:22 WBC (4.8-10.8) x10^3/uL RBC (4.20-5.40) 10^6/uL Hgb (12.0-16.0) g/dL Hct (37.0-47.0) % MCV (81.0-99.0) fL MCH (27.0-31.0) pg MCHC (32.0-36.0) g/dL RDW (12.0-15.0) % Plt Count (130-450) 10^3/uL MPV (7.9-10.8) fL Neut # (Auto) (1.5-6.6) 10^3/uL Lymph # (Auto) (1.5-3.5) 10^3/uL Douglas # (Auto) (0.0-1.0) 10^3/uL Eos # (Auto) (0.0-0.7) 10^3/uL Baso # (Auto) (0.0-0.1) 10^3/uL Absolute Nucleated RBC x10^3/uL Nucleated RBC % /100WBC Sodium 137 (135-145) mmol/L Potassium 3.7 (3.5-5.0) mmol/L Chloride 108 (101-111) mmol/L Carbon Dioxide 16 L (21-32) mmol/L Anion Gap 13.0 (6-13) BUN 14 (6-20) mg/dL Creatinine 0.9 (0.4-1.0) mg/dL Estimated GFR (MDRD) 63 L (>89) Glucose 135 H (70-100) mg/dL Lactic Acid (0.5-2.2) mmol/L Calcium 9.3 (8.5-10.3) mg/dL Phosphorus (2.5-4.6) mg/dL Magnesium 2.4 (1.7-2.8) mg/dL Total Bilirubin 0.6 (0.2-1.0) mg/dL AST 13 (10-42) IU/L ALT 18 (10-60) IU/L Alkaline Phosphatase 74 (42-121) IU/L Total Protein 8.1 (6.7-8.2) g/dL Albumin 3.4 (3.2-5.5) g/dL Globulin 4.7 H (2.1-4.2) g/dL Albumin/Globulin Ratio 0.7 L (1.0-2.2) Lipase 42 (22-51) U/L TSH 2.83 (0.34-5.60) uIU/mL 03/28/19 Range/Units 20:22 WBC 12.8 H (4.8-10.8) x10^3/uL RBC 5.08 (4.20-5.40) 10^6/uL Hgb 15.0 (12.0-16.0) g/dL Hct 44.4 (37.0-47.0) % MCV 87.4 (81.0-99.0) fL MCH 29.5 (27.0-31.0) pg MCHC 33.8 (32.0-36.0) g/dL RDW 12.4 (12.0-15.0) % Plt Count 435 (130-450) 10^3/uL MPV 7.7 L (7.9-10.8) fL Neut # (Auto) 10.1 H (1.5-6.6) 10^3/uL Lymph # (Auto) 2.0 (1.5-3.5) 10^3/uL Douglas # (Auto) 0.6 (0.0-1.0) 10^3/uL Eos # (Auto) 0.0 (0.0-0.7) 10^3/uL Baso # (Auto) 0.0 (0.0-0.1) 10^3/uL Absolute Nucleated RBC 0.00 x10^3/uL Nucleated RBC % 0.0 /100WBC Sodium (135-145) mmol/L Potassium (3.5-5.0) mmol/L Chloride (101-111) mmol/L Carbon Dioxide (21-32) mmol/L Anion Gap (6-13) BUN (6-20) mg/dL Creatinine (0.4-1.0) mg/dL Estimated GFR (MDRD) (>89) Glucose (70-100) mg/dL Lactic Acid (0.5-2.2) mmol/L Calcium (8.5-10.3) mg/dL Phosphorus (2.5-4.6) mg/dL Magnesium (1.7-2.8) mg/dL Total Bilirubin (0.2-1.0) mg/dL AST (10-42) IU/L ALT (10-60) IU/L Alkaline Phosphatase (42-121) IU/L Total Protein (6.7-8.2) g/dL Albumin (3.2-5.5) g/dL Globulin (2.1-4.2) g/dL Albumin/Globulin Ratio (1.0-2.2) Lipase (22-51) U/L TSH (0.34-5.60) uIU/mL ABX Reporting Has patient been on IV antibiotics over the past 48 hours?: No Sepsis Event Note (H) - Evaluation Current Stage of Sepsis: Ruled out Assessment/Plan - Problem List (1) Small bowel obstruction Impression: (1) small bowel obstruction Conclusion/Plan: 03/29 pt persistently had N/V and mild abdominal pain. CT of abdomen ordered and showed bowel obstruction within the parastomal hernia causing obstruction. NG was insert to pt, Xray confirmed at the place. followup GI surgeon continue NG tube care NPO with D5 IVF pain control discussed with pt and her boyfriend, hope pt can have movement or ambulation. (2) Hypothyroidism Conclusion/Plan: On Synthroid at home. TSH is within normal limits. - Resume home Synthroid once taking PO (3) Depression Conclusion/Plan: She is on Fluoxetine at home. Stable. - Resume home medication once taking PO (4) Fibromyalgia Conclusion/Plan: This is a new diagnosis for her and she has been started on amitriptyline and g abapentin. Stable. - Restart home medications once dosage is confirmed and she is taking PO (5) History of ulcerative colitis Conclusion/Plan: 03/29 continue ileostomy care
--- NOTE | 2019-03-29 15:45 | XRAY Report ---
Reason: SBO Procedure Date: 03/29/2019 Accession Number: [id number] / [id number] Procedure: XR - No-Charge 1V Abdomen CPT Code: 94635 FULL RESULT: EXAM: ABDOMEN RADIOGRAPHY EXAM DATE: 03/29/2019 02:39 PM. CLINICAL HISTORY: Small bowel obstruction. COMPARISON: ABDOMEN 1 VIEW 03/29/2019 11:41 AM. TECHNIQUE: 1 view. FINDINGS: Bowel Gas Pattern: A few dilated small bowel loops again noted in the lower left abdomen. Other: Stable NG tube to the mid stomach. Contrast in nondilated collecting systems and bladder. Stable right upper quadrant calcifications. Bilateral pelvic clips. IMPRESSION: Persistent dilatation of small bowel loops in the lower left abdomen compatible with distal small bowel obstruction. RADIA
--- NOTE | 2019-03-29 15:48 | XRAY Report ---
Reason: SBO Procedure Date: 03/29/2019 Accession Number: [id number] / [id number] Procedure: XR - No-Charge 1V Abdomen CPT Code: 76337 FULL RESULT: EXAM: ABDOMEN RADIOGRAPHY EXAM DATE: 03/29/2019 03:16 PM. CLINICAL HISTORY: Small bowel obstruction. COMPARISON: 1V ABDOMEN 03/29/2019 2:47 PM. TECHNIQUE: 1 view. FINDINGS: Bowel Gas Pattern: Persistent dilatation of small bowel loops in the lower left abdomen. Contrast in the upper stomach, injected via NG tube. Other: None. IMPRESSION: 1. Persistent dilatation of small bowel loops in the lower left abdomen compatible with small bowel obstruction. 2. Contrast outlines unremarkable upper stomach. RADIA
--- NOTE | 2019-03-29 16:31 | CONSULTATION NOTE ---
Referring Provider Name of Referring Provider:: Bert Acosta Consult Date: 03/29/19 Chief Complaint - Chief Complaint Chief Complaint: Nausea and vomiting and decreased ostomy output History of Present Illness - Admitted From Admitted From:: Emergency Department - History Obtained From Records Reviewed: Provider's notes History obtained from: Patient and proveders Exam Limitations: Patient discomfort - History of Present Illness HPI Comment/Other: Jenelle is a very pleasant 64-year-old lady who presented to the emergency room complaining of nausea vomiting and abdominal pain. She has a history that is significant for ulcerative colitis and underwent a total abdominal colectomy in 1992 with a permanent ileostomy. She reports that she is done very well. Yesterday afternoon, she developed some nausea and vomiting. She actually only vomited one time in the emergency room but was quite nauseated at home. Over the same time., She noted a decreased output from her stoma. She says that her stoma does not really hurt is not really tender around it, but she feels quite terrible. She does not think she has been around anyone ill. She does not know of any sick contacts.She reports that she was in her usual state of health when she started to feel nauseated. History - Past Medical History Cardiovascular: reports: High cholesterol, Other Respiratory: reports: Other Neuro: reports: None Endocrine/Autoimmune: reports: HyPOthyroidism GI: reports: GERD, Ulcerative colitis : reports: Incontinence Psych: reports: Depression, Anxiety, Panic attacks Musculoskeletal: reports: Osteoarthritis, Other Derm: reports: Other MRSA Hx?: No - Past Surgical History General: reports: Bowel surgery, Colonoscopy Ortho: reports: Knee replacement, Arthroscopic surgery HEENT: reports: Tonsil/Adenoidectomy - Family & Social History Family History: Mother: Family History Comment/Other: She reports that her mother from a myocardial infarction at the age of 42. Her mother and father had diabetes. Her father also had ulcerative colitis and crohns disease. Living arrangement: At home Living Situation: Alone Social History Notes: She is currently disabled and is not employed. She lives alone with her cat. She does not smoke and rarely drinks alcohol. She does use CBD oil and has been using it for the past four weeks. - POLST Patient has POLST: No Meds/Allgy - Home Medications Home Medications: Ambulatory Orders Medication Instructions Recorded Confirmed Levothyroxine Inj [Synthroid Inj] 100 mcg ORAL DAILY 12/18/13 03/29/19 Atorvastatin [Lipitor] 20 mg PO DAILY 10/08/14 03/29/19 Omeprazole 20 mg PO DAILY 10/08/14 03/29/19 Amitriptyline HCl 25 mg PO QPM 03/29/19 03/29/19 Estradiol 1 tab PV Q7D 03/29/19 03/29/19 Fluoxetine HCl [Prozac] 80 mg PO DAILY 03/29/19 03/29/19 Gabapentin 600 mg PO QPM 03/29/19 03/29/19 LORazepam [Lorazepam] 1 mg PO Q8H PRN 03/29/19 03/29/19 Topiramate [Topamax] 200 mg PO DAILY 03/29/19 03/29/19 Zolpidem Tartrate 5 mg PO QPM 03/29/19 03/29/19 - Allergies Allergies/Adverse Reactions: Allergies Allergy/AdvReac Type Severity Reaction Status Date / Time hydrocodone bitartrate * Allergy Mild Itching Verified 10/08/14 11:19 [From Vicodin] Penicillins Allergy Unknown Unknown Verified 10/08/14 11:19 Sulfa (Sulfonamide Allergy Unknown Unknown Verified 10/08/14 11:19 Antibiotics) hydrocodone AdvReac Severe Chest pain Verified 10/20/14 12:39 /SOB oxycodone HCl * AdvReac Severe Chest Verified 10/20/14 12:39 [From OxyContin] Pain/SOB Review of Systems - Constitutional Constitutional: reports: Fatigue - Eyes Eyes: denies: Pain, Irritation - Ears, Nose & Throat Ears, Nose & Throat: denies: Tinnitus, Vertigo - Cardiovascular Cariovascular: denies: Irregular heart rate, Palpitations, Chest pain, Lightheadedness, Syncope - Respiratory Respiratory: denies: Cough, Wheezing - Gastrointestinal Gastrointestinal: reports: Abdominal pain, Change in bowel habits (Decreased ostomy output), Nausea, Vomiting. denies: Coffee grounds emesis, Reflux/heartburn - Genitourinary Genitourinary: denies: Dysuria, Frequency - Integumentary Integumentary: denies: Rash - Neurological Neurological: denies: Focal weakness - Hematologic/Lymphatic Hematologic/Lymphatic: denies: Anemia - All Other Systems All Other Systems: reports: Reviewed and negative Exam - Vital Signs Reviewed Vital Signs: Yes Vital Signs: Vital Signs x48h Temp Pulse Resp BP Pulse Ox 03/29/19 12:25 36.6 C 62 16 143/89 H 96 - Physical Exam General Appearance: positive: Alert, Moderate distress Eyes Bilateral: positive: Normal inspection, PERRL ENT: positive: ENT inspection nml, Pharynx nml Neck: positive: Nml inspection, Thyroid nml, No JVD, Trachea midline Respiratory: positive: Chest non-tender, No respiratory distress, Breath sounds nml Cardiovascular: positive: Regular rate & rhythm, No murmur Abdomen: positive: Non-tender, Tenderness (Mild global tenderness to palpation.), Abnml bowel sounds (Hypoactive bowel sounds), Other (Ostomy in the right lower quadrant producing succus entericus. Minimal air.). negative: No distention, Guarding, Rebound Back: negative: CVA tenderness (R), CVA tenderness (L) Skin: positive: Color nml, No rash Extremities: positive: Non-tender Neurologic/Psychiatric: positive: Oriented x3 Conclusion/Plan - Diagnosis Diagnosis: Nausea and vomiting with possible small bowel obstruction in the setting of a very pleasant lady who is status post total abdominal colectomy more than 20 years ago for ulcerative colitis. - Plan Plan: I have suggested a Gastrografin challenge. I have ordered an NG tube so that the patient does not have to swallow the contrast and also to enable us to aspirate the contents of her stomach if she becomes nauseated. This should settle the issue of a bowel obstruction. I will plan to reexamine the patient later this afternoon. - Lab Results Lab results reviewed: Yes Fish Bones: 03/29/19 05:23 03/29/19 05:23 - Diagnostic Imaging Results Diagnostic Imaging Results Comments: CT scan of the abdomen pelvis was read as possible bowel obstruction with in the parastomal hernia itself. Acute abdominal series shows multiple fluid-filled bowel loops per
[2019-03-29 19:04] LABS: BILIRUBIN,URINE NEGATIVE (NEGATIVE); GLUCOSE, URINE (UA) NEGATIVE (NEGATIVE); KETONES,URINE (UA) NEGATIVE (NEGATIVE); LEUKOCYTE ESTERASE, URINE TRACE (NEGATIVE); NITRITE,URINE NEGATIVE (NEGATIVE); OCCULT BLOOD,URINE MODERATE (NEGATIVE); PH,URINE 5.5 PH (5.0-7.5); PROTEIN,URINE NEGATIVE (NEGATIVE); UROBILINOGEN,URINE 0.2 (NORMAL) E.U./dL (NORMAL)
[2019-03-29 19:07] LABS: CLARITY,URINE HAZY (CLEAR)
[2019-03-29 19:16] LABS: BACTERIA,URINE Few /HPF (None Seen); RBC,URINE 0-5 /HPF (0-5); SQUAMOUS EPITHELIAL CELL,UR MANY Squamous (<= Few)
--- NOTE | 2019-03-29 20:20 | XRAY Report ---
Reason: SBO, SBFT Challenge panel Procedure Date: 03/29/2019 Accession Number: [id number] / [id number] Procedure: XR - No-Charge 1V Abdomen CPT Code: 48925 FULL RESULT: EXAM: ABDOMEN RADIOGRAPHY EXAM DATE: 03/29/2019 06:58 PM. CLINICAL HISTORY: SBO, SBFT Challenge panel. COMPARISON: NO CHARGE 1V ABDOMEN 03/29/2019 2:53 PM. TECHNIQUE: 2 views. FINDINGS: Lung Bases: Unremarkable. Bowel Gas Pattern: Enteric tube is seen with oral contrast in esophagus and fundus of stomach. Nondilated bowel loops. Free Air: None. Other: Excreted contrast is seen in urinary bladder. IMPRESSION: Enteric tube with oral contrast in esophagus and stomach. Nondilated bowel loops. No pneumoperitoneum. RADIA
[2019-03-29] MEDS ORDERED: GABAPENTIN 300 MG CAPSULE PO SCH (21:00)
[2019-03-29] MEDS: ATORVASTATIN 40 MG TABLET PO SCH (21:24)
[2019-03-30] MEDS: ONDANSETRON 4 MG/2 ML VIAL IVP PRN (00:39)
[2019-03-30] MEDS: MORPHINE 2 MG/ML CARPUJECT IVP PRN ×4 (00:40→09:16)
[2019-03-30] MEDS: SODIUM CHLORIDE FLUSH 0.9% 10 ML SYRINGE IVP SCH ×3 (00:40→18:12)
[2019-03-30] MEDS: SODIUM CHLORIDE FLUSH 0.9% 10 ML SYRINGE IVP PRN ×2 (03:30→06:00)
--- NOTE | 2019-03-30 04:41 | XRAY Report ---
Reason: SBO, SBFT Challenge Panel Procedure Date: 03/30/2019 Accession Number: [id number] / [id number] Procedure: XR - No-Charge 1V Abdomen CPT Code: 13867 FULL RESULT: EXAM: ABDOMEN RADIOGRAPHY EXAM DATE: 03/30/2019 03:32 AM. CLINICAL HISTORY: SBO, SBFT Challenge Panel. COMPARISON: NO CHARGE 1V ABDOMEN 03/29/2019 6:06 PM. TECHNIQUE: 3 frontal supine views. FINDINGS: Lung Bases: Unremarkable. Bowel Gas Pattern: Contrast remains in stomach and proximal small bowel to level of proximal jejunum. No contrast has progressed on this point on 12 hour image. Mildly prominent and irregular bowel loops noted in left abdomen. Free Air: Limited evaluation for free are on supine radiograph. Other: Enteric catheter is present with tip terminating in stomach. Contrast within the bladder. Postsurgical changes in the pelvis. IMPRESSION: Bowel contrast remains in stomach and proximal small bowel with no progression of contrast beyond proximal jejunum on 12 hour image. Findings are compatible with small bowel obstruction. RADIA
[2019-03-30] MEDS: PANTOPRAZOLE 40 MG VIAL IVP SCH (05:59)
[2019-03-30] MEDS: LEVOTHYROXINE 100 MCG TABLET PO SCH (06:00)
[2019-03-30 06:14] LABS: BASOPHILS % (AUTO) 0.2 %; EOSINOPHILS % (AUTO) 0.1 %; HGB - HEMOGLOBIN 16.2 g/dL (12.0-16.0); LYMPHOCYTES # (AUTO) 2.2 10^3/uL (1.5-3.5); LYMPHOCYTES % (AUTO) 12.2 %; MEAN CORPUSCULAR HEMOGLOBIN 30.2 pg (27.0-31.0); MEAN CORPUSCULAR VOLUME 91.6 fL (81.0-99.0); MEAN PLATELET VOLUME 7.9 fL (7.9-10.8); MONOCYTES # (AUTO) 1.2 10^3/uL (0.0-1.0); MONOCYTES % (AUTO) 6.8 %; NEUTROPHILS # (AUTO) 14.4 10^3/uL (1.5-6.6); PLT - PLATELET COUNT 504 10^3/uL (130-450); RED BLOOD COUNT 5.36 10^6/uL (4.20-5.40); RED CELL DISTRIBUTION WIDTH 12.8 % (12.0-15.0); WHITE BLOOD COUNT 17.9 x10^3/uL (4.8-10.8)
[2019-03-30 06:25] LABS: CALCIUM 9.5 mg/dL (8.5-10.3); CREATININE 0.9 mg/dL (0.4-1.0); MAGNESIUM 2.2 mg/dL (1.7-2.8); PHOSPHORUS 3.7 mg/dL (2.5-4.6)
[2019-03-30] MEDS ORDERED: DEXTROSE 5%-0.45% NACL 1,000 ML IV SCH (08:00)
--- NOTE | 2019-03-30 09:14 | PROVIDER PROGRESS NOTE ---
Assessment/Plan - Problem List (1) Small bowel obstruction Assessment/Plan: Resolving clinically, due to adhesions vs parastomal hernia. Rec: d/c NG tube; keep NPO for now except meds; consider clear liquids this afternoon if continues to improve. Discussed elective surgery to repair hernia and relocate her ileostomy. - Current Meds Current Meds: Current Medications Generic Name Dose Route Start Last Admin Trade Name Freq PRN Reason Stop Dose Admin Atorvastatin Calcium 20 mg 03/29/19 21:00 03/29/19 21:24 Lipitor PO Not Given QPM SOFIA Benzocaine/Butamben/Tetracaine HCl 1 sprays 03/29/19 11:42 03/29/19 12:30 Cetacaine [place] MM 1 sprays Q6H PRN Administration PAIN Fluoxetine HCl 40 mg 03/29/19 09:00 03/29/19 12:38 Prozac PO Not Given DAILY SOFIA Gabapentin 600 mg 03/29/19 21:00 03/29/19 21:24 Neurontin PO Not Given QPM SOFIA Heparin Sodium (Porcine) 5,000 unit 03/29/19 09:00 03/29/19 21:48 SUBQ 5,000 unit BID SOFIA Administration Dextrose/Sodium Chloride 1,000 mls @ 100 mls/hr 03/30/19 08:00 03/30/19 08:50 D5.45ns IV 100 mls/hr .Q10H SOFIA Administration Levothyroxine Sodium 100 mcg 03/29/19 07:00 03/30/19 06:00 Synthroid PO 100 mcg QDAC SOIFA Administration Morphine Sulfate 2 mg 03/28/19 22:49 03/30/19 06:00 Morphine (Carpuject) IVP 2 mg Q2HR PRN Administration Pain 8 to 10 Ondansetron HCl 4 mg 03/28/19 22:49 03/30/19 00:39 Zofran Inj IVP 4 mg Q6HR PRN Administration Nausea / Vomiting Pantoprazole Sodium 40 mg 03/28/19 22:49 03/30/19 05:59 Protonix IVP 40 mg QDAC SOFIA Administration Sodium Chloride 10 ml 03/28/19 22:49 03/30/19 06:00 Normal Saline Flush 0.9% IVP 10 ml PRN PRN Administration NEEDED PER PROVIDER ORDERS Sodium Chloride 10 ml 03/29/19 01:00 03/30/19 00:40 Normal Saline Flush 0.9% IVP 10 ml 0100,0900,1700 SOFIA Administration - Lab Result Fish Bone Diagrams: 03/30/19 05:56 03/30/19 05:56 - Diagnostic Imaging Results Diagnostic Imaging Results: Final report reviewed, Read independently Diagnostic Imaging Results Comments: gastrograffin challenge test film from 0300 shows contrast in stomach and duodenum, dilated loops of fluid filled small bowel, c/w SBO - Additional Planning Condition/Complexity: Improved My Orders: My Active Orders 03/30/19 09:10 NG Discontinuation [RC] ONCE 03/31/19 05:00 CBC - COMP BLD CT W/AUTO DIFF [HEME] DAILYLAB CMP [COMPREHENSIVE METABOLIC PANEL] [CHEM] DAILYLAB Plan Discussed with:: Patient, Other (hospitalists) Time Spent: 15-30 minutes Subjective - Subjective Patient Reports: Feeling Better (except c/o discomfort from NG tube; abd discomfort has resolved; passing large amounts of stool per ileostomy over the past few hours, over 1500 ml; no further N/V.) Objective Vital Signs: Vital Signs - 24 hr 03/29/19 03/29/19 03/29/19 12:25 15:00 19:00 Temperature 36.6 C 36.3 C L 36.5 C Heart Rate [ 62 60 66 Brachial] Respiratory 16 18 18 Rate Blood Pressure [Right Brachial artery] Blood Pressure 143/89 H 145/84 H 137/84 H [Right Radial artery] O2 Saturation 96 99 97 03/30/19 03/30/19 03/30/19 00:42 03:33 07:47 Temperature 36.5 C 36.6 C 36.3 C L Heart Rate [ 67 88 83 Brachial] Respiratory 20 20 18 Rate Blood Pressure 148/85 H 141/84 H 116/77 [Right Brachial artery] Blood Pressure [Right Radial artery] O2 Saturation 95 97 96 Oxygen O2 Source Room air I&O (Last 24 Hrs): Intake and Output Totals x24h 03/28/19 03/29/19 03/30/19 23:59 23:59 23:59 Intake Total 1000 2220 10 Output Total 50 1650 Balance 1000 2170 -1640 minimal NG output over night. 03/30/19 09:21 General: Alert, Oriented x3, Cooperative, No acute distress Neuro: Alert Abdomen: Soft, No tenderness, No hepatospenomegaly, No masses, Other (bowel sounds hyperactive, tympanitic; no tenderness around ileostomy; no palpable hernia evident; copious liquid green ileostomy output in bag and leaking around bag.; mild distention; benign abdomen) Extremities: No edema, No tenderness/swelling - Results Results: Laboratory Results WBC 17.9 x10^3/uL (4.8-10.8) H 03/30/19 05:56 RBC 5.36 10^6/uL (4.20-5.40) 03/30/19 05:56 Hgb 16.2 g/dL (12.0-16.0) H 03/30/19 05:56 Hct 49.1 % (37.0-47.0) H 03/30/19 05:56 MCV 91.6 fL (81.0-99.0) 03/30/19 05:56 MCH 30.2 pg (27.0-31.0) 03/30/19 05:56 MCHC 33.0 g/dL (32.0-36.0) 03/30/19 05:56 RDW 12.8 % (12.0-15.0) 03/30/19 05:56 Plt Count 504 10^3/uL (130-450) H 03/30/19 05:56 MPV 7.9 fL (7.9-10.8) 03/30/19 05:56 Neut # (Auto) 14.4 10^3/uL (1.5-6.6) H 03/30/19 05:56 Lymph # (Auto) 2.2 10^3/uL (1.5-3.5) 03/30/19 05:56 [place] # (Auto) 1.2 10^3/uL (0.0-1.0) H 03/30/19 05:56 Eos # (Auto) 0.0 10^3/uL (0.0-0.7) 03/30/19 05:56 Baso # (Auto) 0.0 10^3/uL (0.0-0.1) 03/30/19 05:56 Absolute Nucleated RBC 0.00 x10^3/uL 03/30/19 05:56 Nucleated RBC % 0.0 /100WBC 03/30/19 05:56 Sodium 142 mmol/L (135-145) 03/30/19 05:56 Potassium 4.3 mmol/L (3.5-5.0) 03/30/19 05:56 Chloride 111 mmol/L (101-111) 03/30/19 05:56 Carbon Dioxide 21 mmol/L (21-32) 03/30/19 05:56 Anion Gap 10.0 (6-13) 03/30/19 05:56 BUN 13 mg/dL (6-20) 03/30/19 05:56 Creatinine 0.9 mg/dL (0.4-1.0) 03/30/19 05:56 Estimated GFR (MDRD) 63 (>89) L 03/30/19 05:56 Glucose 157 mg/dL (70-100) H 03/30/19 05:56 Lactic Acid 0.7 mmol/L (0.5-2.2) 03/28/19 23:09 Calcium 9.5 mg/dL (8.5-10.3) 03/30/19 05:56 Phosphorus 3.7 mg/dL (2.5-4.6) 03/30/19 05:56 Magnesium 2.2 mg/dL (1.7-2.8) 03/30/19 05:56 Total Bilirubin 0.6 mg/dL (0.2-1.0) 03/28/19 20:22 AST 13 IU/L (10-42) 03/28/19 20:22 ALT 18 IU/L (10-60) 03/28/19 20:22 Alkaline Phosphatase 74 IU/L (42-121) 03/28/19 20:22 Total Protein 8.1 g/dL (6.7-8.2) 03/28/19 20:22 Albumin 3.4 g/dL (3.2-5.5) 03/28/19 20:22 Globulin 4.7 g/dL (2.1-4.2) H 03/28/19 20:22 Albumin/Globulin Ratio 0.7 (1.0-2.2) L 03/28/19 20:22 Lipase 42 U/L (22-51) 03/28/19 20:22 TSH 2.83 uIU/mL (0.34-5.60) 03/28/19 20:22 Urine Color YELLOW 03/29/19 18:23 Urine Clarity HAZY (CLEAR) 03/29/19 18:23 Urine pH 5.5 PH (5.0-7.5) 03/29/19 18:23 Ur Specific [place] 1.010 (1.002-1.030) 03/29/19 18:23 Urine Protein NEGATIVE mg/dL (NEGATIVE) 03/29/19 18:23 Urine Glucose (UA) NEGATIVE mg/dL (NEGATIVE) 03/29/19 18:23 Urine Ketones NEGATIVE mg/dL (NEGATIVE) 03/29/19 18:23 Urine Occult Blood MODERATE (NEGATIVE) H 03/29/19 18:23 Urine Nitrite NEGATIVE (NEGATIVE) 03/29/19 18:23 Urine Bilirubin NEGATIVE (NEGATIVE) 03/29/19 18:23 Urine Urobilinogen 0.2 (NORMAL) E.U./dL (NORMAL) 03/29/19 18:23 Ur Leukocyte Esterase TRACE (NEGATIVE) H 03/29/19 18:23 Urine RBC 0-5 /HPF (0-5) 03/29/19 18:23 Urine WBC 6-10 /HPF (0-5) H 03/29/19 18:23 Ur Squamous Epith Cells MANY Squamous (<= Few) H 03/29/19 18:23 Urine Bacteria Few /HPF (None Seen) 03/29/19 18:23 Urine Culture Comments NOT INDICATED 03/29/19 18:23 - Procedures Procedures: Procedures EXCIS KNEE SEMILUN CARTL (10/20/14) KNEE STRUCTURE DIVISION (10/20/14) TOTAL KNEE REPLACEMENT (12/03/13) Sepsis Event Note (H) - Evaluation Current Stage of Sepsis: Ruled out ABX Reporting Has patient been on IV antibiotics over the past 48 hours?: No
[2019-03-30] MEDS: FLUoxetine 10 MG CAPSULE PO SCH (10:44)
[2019-03-30] MEDS: HEPARIN 5,000 UNIT/ML VIAL SUBQ SCH ×3 (10:45→20:40)
--- NOTE | 2019-03-30 15:57 | PROVIDER PROGRESS NOTE ---
Subjective - Prog Note Date Prog Note Date: 03/30/19 - Subjective Pt reports feeling: Improved Subjective: pt report her abdominal discomfort was much better, she report she passed large amounts of stool per ileostomy, denies further nausea or vomiting. she request to eat clear diet. pt's NG tube was removed Current Medications - Current Medications Current Medications: Active Medications Atorvastatin Calcium (Lipitor) 20 mg PO QPM [facility] Last Admin: 03/29/19 21:24 Dose: Not Given Benzocaine/Butamben/Tetracaine HCl (Cetacaine [place]) 1 sprays MM Q6H PRN PRN Reason: PAIN Last Admin: 03/29/19 12:30 Dose: 1 sprays Fluoxetine HCl (Prozac) 40 mg PO DAILY [facility] Last Admin: 03/30/19 10:44 Dose: 40 mg Gabapentin (Neurontin) 600 mg PO QPM [facility] Last Admin: 03/29/19 21:24 Dose: Not Given Heparin Sodium (Porcine) () 5,000 unit SUBQ BID [facility] Last Admin: 03/30/19 10:45 Dose: 5,000 unit Acetaminophen (Ofirmev) 100 mls @ 400 mls/hr IV Q6HR PRN PRN Reason: PAIN Dextrose/Sodium Chloride (D5.45ns) 1,000 mls @ 100 mls/hr IV .Q10H [facility] Last Admin: 03/30/19 08:50 Dose: 100 mls/hr Levothyroxine Sodium (Synthroid) 100 mcg PO QDAC [facility] Last Admin: 03/30/19 06:00 Dose: 100 mcg Morphine Sulfate (Morphine (Carpuject)) 2 mg IVP Q2HR PRN PRN Reason: Pain 8 to 10 Last Admin: 03/30/19 09:16 Dose: 2 mg Ondansetron HCl (Zofran Inj) 4 mg IVP Q6HR PRN PRN Reason: Nausea / Vomiting Last Admin: 03/30/19 00:39 Dose: 4 mg Pantoprazole Sodium (Protonix) 40 mg IVP QDAC [facility] Last Admin: 03/30/19 05:59 Dose: 40 mg Sodium Chloride (Normal Saline Flush 0.9%) 10 ml IVP PRN PRN PRN Reason: NEEDED PER PROVIDER ORDERS Last Admin: 03/30/19 06:00 Dose: 10 ml Sodium Chloride (Normal Saline Flush 0.9%) 10 ml IVP 0100,0900,1700 SOFIA Last Admin: 03/30/19 09:01 Dose: Not Given Levothyroxine Inj [Synthroid Inj] 100 mcg ORAL DAILY 12/18/13 Atorvastatin [Lipitor] 20 mg PO DAILY 10/08/14 Omeprazole 20 mg PO DAILY 10/08/14 Amitriptyline HCl 25 mg PO QPM 03/29/19 Estradiol 1 tab PV Q7D 03/29/19 Fluoxetine HCl [Prozac] 80 mg PO DAILY 03/29/19 Gabapentin 600 mg PO QPM 03/29/19 LORazepam [Lorazepam] 1 mg PO Q8H PRN 03/29/19 Topiramate [Topamax] 200 mg PO DAILY 03/29/19 Zolpidem Tartrate 5 mg PO QPM 03/29/19 Objective - Vital Signs/Intake & Output Reviewed Vital Signs: Yes Vital Signs: Vital Signs x48h Temp Pulse Resp BP BP Pulse Ox 03/30/19 15:52 36.7 C 71 18 100/62 96 03/30/19 11:41 36.5 C 79 18 128/76 98 Intake & Output: Intake & Output 03/27/19 03/28/19 03/29/19 03/30/19 23:59 23:59 23:59 23:59 Intake Total 1000 2220 1010 Output Total 50 2300 Balance 1000 2170 -1290 - Objective General Appearance: positive: No acute distress, Alert. negative: Lethargic Eyes Bilateral: positive: Normal inspection, PERRL, No lid inflammation, Conjunctivae nml ENT: positive: ENT inspection nml, Pharynx nml, No signs of dehydration. negative: Purulent nasal drainage, Pharyngeal erythema, Oral lesions Neck: positive: Nml inspection, Thyroid nml, No JVD, Trachea midline. negative: Thyromegaly, Lymphadenopathy (R), Lymphadenopathy (L), Stiff neck, Swelling/bru ising, Tracheal deviation Respiratory: positive: Chest non-tender, No respiratory distress, Breath sounds nml. negative: Wheezes, Rales, Rhonchi Cardiovascular: positive: Regular rate & rhythm, No murmur, No gallop. negative: Irregularly irregular, Extrasystoles, Tachycardia, Bradycardia, JVD present, Systolic murmur, Diastolic murmur Peripheral Pulses: 2+ Radial (R), 2+ Radial (L), 2+ Dorsalis pedis (R), 2+ Dorsalis pedis (L) Abdomen: positive: Non-tender, No organomegaly, Nml bowel sounds, No distention, Other (ileuostomy bag at right abdomen). negative: Tenderness, Guarding, Rebound Back: positive: Nml inspection. negative: CVA tenderness (R), CVA tenderness ( L) Skin: positive: Color nml, No rash, Warm, Dry. negative: Cyanosis, Diaphoresis, Pallor Extremities: positive: Non-tender, Nml appearance. negative: Calf tenderness, Joint swelling, Mario's sign/cords Neurologic/Psychiatric: positive: Oriented x3, Sensation nml, Mood/affect nml. negative: Weakness, Sensory loss, Facial droop, Slurred/abnml speech, Depressed mood/affect - Lab Results Fish Bones: 03/30/19 05:56 03/30/19 05:56 Other Labs: Lab Results x24hrs 03/30/19 03/30/19 03/29/19 Range/Units 05:56 05:56 18:23 WBC 17.9 H (4.8-10.8) x10^3/uL RBC 5.36 (4.20-5.40) 10^6/uL Hgb 16.2 H (12.0-16.0) g/dL Hct 49.1 H (37.0-47.0) % MCV 91.6 (81.0-99.0) fL MCH 30.2 (27.0-31.0) pg MCHC 33.0 (32.0-36.0) g/dL RDW 12.8 (12.0-15.0) % Plt Count 504 H (130-450) 10^3/uL MPV 7.9 (7.9-10.8) fL Neut # (Auto) 14.4 H (1.5-6.6) 10^3/uL Lymph # (Auto) 2.2 (1.5-3.5) 10^3/uL [place] # (Auto) 1.2 H (0.0-1.0) 10^3/uL Eos # (Auto) 0.0 (0.0-0.7) 10^3/uL Baso # (Auto) 0.0 (0.0-0.1) 10^3/uL Absolute Nucleated RBC 0.00 x10^3/uL Nucleated RBC % 0.0 /100WBC Sodium 142 (135-145) mmol/L Potassium 4.3 (3.5-5.0) mmol/L Chloride 111 (101-111) mmol/L Carbon Dioxide 21 (21-32) mmol/L Anion Gap 10.0 (6-13) BUN 13 (6-20) mg/dL Creatinine 0.9 (0.4-1.0) mg/dL Estimated GFR (MDRD) 63 L (>89) Glucose 157 H (70-100) mg/dL Calcium 9.5 (8.5-10.3) mg/dL Phosphorus 3.7 (2.5-4.6) mg/dL Magnesium 2.2 (1.7-2.8) mg/dL Urine Color YELLOW Urine Clarity HAZY (CLEAR) Urine pH 5.5 (5.0-7.5) PH Ur Specific [place] 1.010 (1.002-1.030) Urine Protein NEGATIVE (NEGATIVE) mg/dL Urine Glucose (UA) NEGATIVE (NEGATIVE) mg/dL Urine Ketones NEGATIVE (NEGATIVE) mg/dL Urine Occult Blood MODERATE H (NEGATIVE) Urine Nitrite NEGATIVE (NEGATIVE) Urine Bilirubin NEGATIVE (NEGATIVE) Urine Urobilinogen 0.2 (NORMAL) (NORMAL) E.U./dL Ur Leukocyte Esterase TRACE H (NEGATIVE) Urine RBC 0-5 (0-5) /HPF Urine WBC 6-10 H (0-5) /HPF Ur Squamous Epith Cells MANY Squamous H (<= Few) Urine Bacteria Few (None Seen) /HPF Urine Culture Comments NOT INDICATED ABX Reporting Has patient been on IV antibiotics over the past 48 hours?: No Sepsis Event Note (H) - Evaluation Current Stage of Sepsis: Ruled out Assessment/Plan - Problem List (1) Small bowel obstruction Impression: 03/30 great improved. pt had large bowel movement passed into his ileuostomy bag. pt denies N/V, and abdominal discomfort. encourage pt have ambulation. followup GI surgeon start clear diet tonight limited opiates usage 03/29 pt persistently had N/V and mild abdominal pain. CT of abdomen ordered and showed bowel obstruction within the parastomal hernia causing obstruction. NG was insert to pt, Xray confirmed at the place. followup GI surgeon continue NG tube care NPO with D5 IVF pain control discussed with pt and her boyfriend, hope pt can have movement or ambulation. (2) Hypothyroidism Conclusion/Plan: On Synthroid at home. TSH is within normal limits. - Resume home Synthroid once taking PO (3) Depression Conclusion/Plan: She is on Fluoxetine at home. Stable. - Resume home medication once taking PO (4) Fibromyalgia Conclusion/Plan: This is a new diagnosis for her and she has been started on amitriptyline and gabapentin. Stable. - Restart home medications once dosage is confirmed and she is taking PO (5) History of ulcerative colitis Conclusion/Plan: 03/29 continue ileostomy care (6) leukocytosis 03/30 pt's WBC increase to 17.9 from 12.5 on yesterday. UA analysis is likely negative for infection, pt has no respiratory distress. pt has no fever, chill. pt has hx of slight high WBC. unknown etiology. continue lab monitor, vital monitor
--- NOTE | 2019-03-30 16:07 | XRAY Report ---
Reason: SBO, SBFT [place] panel Procedure Date: 03/30/2019 Accession Number: [id number] / [id number] Procedure: XR - No-Charge 1V Abdomen CPT Code: 70126 FULL RESULT: EXAM: ABDOMEN RADIOGRAPHY EXAM DATE: 03/30/2019 02:48 PM. CLINICAL HISTORY: SBO, SBFT [place] panel. COMPARISON: NO CHARGE 1V ABDOMEN 03/30/2019 2:54 AM. TECHNIQUE: 2 views. FINDINGS: Lung Bases: Unremarkable. Bowel Gas Pattern: Within normal limits. No dilated loops or abnormal fluid levels. Free Air: None. Other: Coarsely calcified foci are seen in right upper quadrant, likely gallstones. IMPRESSION: Coarsely calcified foci in right upper quadrant are likely gallstones. Nonobstructive bowel gas pattern. No pneumoperitoneum. RADIA
[2019-03-30] MEDS ORDERED: LORazepam 1 MG TABLET PO PRN (16:53)
[2019-03-30] MEDS: DEXTROSE 5%-0.45% NACL 1,000 ML IV SCH (18:25)
[2019-03-30] MEDS: AMITRIPTYLINE 25 MG TABLET PO SCH (20:25)
[2019-03-30] MEDS: ATORVASTATIN 40 MG TABLET PO SCH (20:26)
[2019-03-30] MEDS: GABAPENTIN 300 MG CAPSULE PO SCH (20:27)
[2019-03-30] MEDS: ZOLPIDEM 5 MG TABLET PO SCH (20:28)
[2019-03-31] MEDS: SODIUM CHLORIDE FLUSH 0.9% 10 ML SYRINGE IVP SCH ×3 (00:21→16:35)
[2019-03-31 05:54] LABS: BASOPHILS # (AUTO) 0.1 10^3/uL (0.0-0.1); BASOPHILS % (AUTO) 0.5 %; EOSINOPHILS # (AUTO) 0.3 10^3/uL (0.0-0.7); EOSINOPHILS % (AUTO) 2.4 %; HGB - HEMOGLOBIN 13.8 g/dL (12.0-16.0); LYMPHOCYTES # (AUTO) 3.1 10^3/uL (1.5-3.5); MEAN CORPUSCULAR HEMOGLOBIN 30.2 pg (27.0-31.0); MEAN CORPUSCULAR HGB CONC 32.6 g/dL (32.0-36.0); MEAN CORPUSCULAR VOLUME 92.6 fL (81.0-99.0); MEAN PLATELET VOLUME 7.8 fL (7.9-10.8); MONOCYTES # (AUTO) 0.9 10^3/uL (0.0-1.0); MONOCYTES % (AUTO) 8.3 %; NEUTROPHILS # (AUTO) 6.2 10^3/uL (1.5-6.6); NEUTROPHILS % (AUTO) 59.2 %; PLT - PLATELET COUNT 338 10^3/uL (130-450); RED BLOOD COUNT 4.57 10^6/uL (4.20-5.40); RED CELL DISTRIBUTION WIDTH 12.6 % (12.0-15.0); WHITE BLOOD COUNT 10.5 x10^3/uL (4.8-10.8)
[2019-03-31] MEDS: PANTOPRAZOLE 40 MG VIAL IVP SCH (06:00)
[2019-03-31] MEDS: LEVOTHYROXINE 100 MCG TABLET PO SCH (06:00)
[2019-03-31] MEDS: GABAPENTIN 300 MG CAPSULE PO SCH ×3 (06:01→20:05)
[2019-03-31] MEDS: SODIUM CHLORIDE FLUSH 0.9% 10 ML SYRINGE IVP PRN (06:01)
[2019-03-31 06:05] LABS: ALBUMIN 2.8 g/dL (3.2-5.5); ALBUMIN/GLOBULIN RATIO 0.8 (1.0-2.2); BILIRUBIN,TOTAL 0.3 mg/dL (0.2-1.0); CALCIUM 8.8 mg/dL (8.5-10.3); CREATININE 0.9 mg/dL (0.4-1.0); TOTAL PROTEIN 6.4 g/dL (6.7-8.2)
[2019-03-31] MEDS: DEXTROSE 5%-0.45% NACL 1,000 ML IV SCH (08:35)
[2019-03-31] MEDS: FLUoxetine 10 MG CAPSULE PO SCH (08:50)
[2019-03-31] MEDS: TOPIRAMATE 100 MG TABLET PO SCH (08:51)
--- NOTE | 2019-03-31 09:02 | PROVIDER PROGRESS NOTE ---
Assessment/Plan - Problem List (1) Small bowel obstruction Assessment/Plan: Resolving clinically, likely due to adhesions vs parastomal hernia; rec: advance to low residue diet, avoid raw vegetables and nuts. Home soon if continues to improve. Outpt f/u my office in 1-2 weeks please. (2) Parastomal hernia Qualifiers: Obstruction and gangrene presence: without obstruction or gangrene Qualified Code(s): K43.5 - Parastomal hernia without obstruction or gangrene Assessment/Plan: Unclear if cause of SBO which is now resolving. Rec: outpt f/u and elective repair with revision of ileostomy. Discussed in detail with patient. - Current Meds Current Meds: Current Medications Generic Name Dose Route Start Last Admin Trade Name Freq PRN Reason Stop Dose Admin Amitriptyline HCl 25 mg 03/30/19 21:00 03/30/19 20:25 Elavil PO 25 mg QPM SOFIA Administration Atorvastatin Calcium 20 mg 03/29/19 21:00 03/30/19 20:26 Lipitor PO 20 mg QPM SOFIA Administration Benzocaine/Butamben/Tetracaine HCl 1 sprays 03/29/19 11:42 03/29/19 12:30 Cetacaine [place] MM 1 sprays Q6H PRN Administration PAIN Fluoxetine HCl 40 mg 03/29/19 09:00 03/31/19 08:50 Prozac PO 40 mg DAILY SOFIA Administration Gabapentin 300 mg 03/30/19 22:00 03/31/19 06:01 Neurontin PO 300 mg TID SOFIA Administration Heparin Sodium (Porcine) 5,000 unit 03/29/19 09:00 03/30/19 20:40 SUBQ Not Given BID SOFIA Dextrose/Sodium Chloride 1,000 mls @ 75 mls/hr 03/30/19 15:58 03/31/19 08:35 D5.45ns IV 75 mls/hr .[id number] SOFIA Administration Levothyroxine Sodium 100 mcg 03/29/19 07:00 03/31/19 06:00 Synthroid PO 100 mcg QDAC SOFIA Administration Morphine Sulfate 2 mg 03/28/19 22:49 03/30/19 09:16 Morphine (Carpuject) IVP 2 mg Q2HR PRN Administration Pain 8 to 10 Ondansetron HCl 4 mg 03/28/19 22:49 03/30/19 00:39 Zofran Inj IVP 4 mg Q6HR PRN Administration Nausea / Vomiting Pantoprazole Sodium 40 mg 03/28/19 22:49 03/31/19 06:00 Protonix IVP 40 mg QDAC SOFIA Administration Sodium Chloride 10 ml 03/28/19 22:49 03/31/19 06:01 Normal Saline Flush 0.9% IVP 10 ml PRN PRN Administration NEEDED PER PROVIDER ORDERS Sodium Chloride 10 ml 03/29/19 01:00 03/31/19 00:21 Normal Saline Flush 0.9% IVP Not Given 0100,0900,1700 SOFIA Topiramate 200 mg 03/31/19 09:00 03/31/19 08:51 Topamax PO 200 mg DAILY SOFIA Administration Zolpidem Tartrate 5 mg 03/30/19 21:00 03/30/19 20:28 Ambien PO 5 mg QPM SOFIA Administration - Lab Result Lab results reviewed: Yes Fish Bone Diagrams: 03/31/19 05:36 03/31/19 05:36 - Additional Planning Condition/Complexity: Improved Plan Discussed with:: Patient, Other (hospitalist) Time Spent: 15-30 minutes Subjective - Subjective Patient Reports: Feeling Better, Resting Comfortably, No Complaints (tolerating clear liquids well; abd pain resolved; ileostomy output back to nl) Objective Vital Signs: Vital Signs - 24 hr 03/30/19 03/30/19 03/30/19 11:41 15:52 20:00 Temperature 36.5 C 36.7 C 36.6 C Heart Rate [ 79 71 75 Brachial] Respiratory 18 18 18 Rate Blood Pressure 128/76 98/72 [Right Brachial artery] Blood Pressure 100/62 [Right Radial artery] O2 Saturation 98 96 96 03/31/19 03/31/19 03/31/19 00:27 05:00 07:34 Temperature 36.7 C 36.7 C 36.5 C Heart Rate [ 74 70 71 Brachial] Respiratory 18 17 16 Rate Blood Pressure 126/79 102/60 [Right Brachial artery] Blood Pressure 107/95 H [Right Radial artery] O2 Saturation 96 98 96 Oxygen O2 Source Room air I&O (Last 24 Hrs): Intake and Output Totals x24h 03/29/19 03/30/19 03/31/19 23:59 23:59 23:59 Intake Total 2220 2684 1200 Output Total 50 2901 850 Balance 2170 -217 350 General: Alert, Oriented x3, Cooperative, No acute distress Abdomen: Soft, No tenderness, No hepatospenomegaly, No masses, Other (no clinically evident parastomal tenderness, mass or hernia.) Extremities: No edema, No tenderness/swelling - Results Results: Laboratory Results WBC 10.5 x10^3/uL (4.8-10.8) 03/31/19 05:36 RBC 4.57 10^6/uL (4.20-5.40) 03/31/19 05:36 Hgb 13.8 g/dL (12.0-16.0) 03/31/19 05:36 Hct 42.3 % (37.0-47.0) 03/31/19 05:36 MCV 92.6 fL (81.0-99.0) 03/31/19 05:36 MCH 30.2 pg (27.0-31.0) 03/31/19 05:36 MCHC 32.6 g/dL (32.0-36.0) 03/31/19 05:36 RDW 12.6 % (12.0-15.0) 03/31/19 05:36 Plt Count 338 10^3/uL (130-450) 03/31/19 05:36 MPV 7.8 fL (7.9-10.8) L 03/31/19 05:36 Neut # (Auto) 6.2 10^3/uL (1.5-6.6) 03/31/19 05:36 Lymph # (Auto) 3.1 10^3/uL (1.5-3.5) 03/31/19 05:36 [place] # (Auto) 0.9 10^3/uL (0.0-1.0) 03/31/19 05:36 Eos # (Auto) 0.3 10^3/uL (0.0-0.7) 03/31/19 05:36 Baso # (Auto) 0.1 10^3/uL (0.0-0.1) 03/31/19 05:36 Absolute Nucleated RBC 0.00 x10^3/uL 03/31/19 05:36 Nucleated RBC % 0.0 /100WBC 03/31/19 05:36 Sodium 138 mmol/L (135-145) 03/31/19 05:36 Potassium 3.8 mmol/L (3.5-5.0) 03/31/19 05:36 Chloride 108 mmol/L (101-111) 03/31/19 05:36 Carbon Dioxide 21 mmol/L (21-32) 03/31/19 05:36 Anion Gap 9.0 (6-13) 03/31/19 05:36 BUN 11 mg/dL (6-20) 03/31/19 05:36 Creatinine 0.9 mg/dL (0.4-1.0) 03/31/19 05:36 Estimated GFR (MDRD) 63 (>89) L 03/31/19 05:36 Glucose 104 mg/dL (70-100) H 03/31/19 05:36 Lactic Acid 0.7 mmol/L (0.5-2.2) 03/28/19 23:09 Calcium 8.8 mg/dL (8.5-10.3) 03/31/19 05:36 Phosphorus 3.7 mg/dL (2.5-4.6) 03/30/19 05:56 Magnesium 2.2 mg/dL (1.7-2.8) 03/30/19 05:56 Total Bilirubin 0.3 mg/dL (0.2-1.0) 03/31/19 05:36 AST 10 IU/L (10-42) 03/31/19 05:36 ALT 11 IU/L (10-60) 03/31/19 05:36 Alkaline Phosphatase 57 IU/L (42-121) 03/31/19 05:36 Total Protein 6.4 g/dL (6.7-8.2) L 03/31/19 05:36 Albumin 2.8 g/dL (3.2-5.5) L 03/31/19 05:36 Globulin 3.6 g/dL (2.1-4.2) 03/31/19 05:36 Albumin/Globulin Ratio 0.8 (1.0-2.2) L 03/31/19 05:36 Lipase 42 U/L (22-51) 03/28/19 20:22 TSH 2.83 uIU/mL (0.34-5.60) 03/28/19 20:22 Urine Color YELLOW 03/29/19 18:23 Urine Clarity HAZY (CLEAR) 03/29/19 18:23 Urine pH 5.5 PH (5.0-7.5) 03/29/19 18:23 Ur Specific [place] 1.010 (1.002-1.030) 03/29/19 18:23 Urine Protein NEGATIVE mg/dL (NEGATIVE) 03/29/19 18:23 Urine Glucose (UA) NEGATIVE mg/dL (NEGATIVE) 03/29/19 18:23 Urine Ketones NEGATIVE mg/dL (NEGATIVE) 03/29/19 18:23 Urine Occult Blood MODERATE (NEGATIVE) H 03/29/19 18:23 Urine Nitrite NEGATIVE (NEGATIVE) 03/29/19 18:23 Urine Bilirubin NEGATIVE (NEGATIVE) 03/29/19 18:23 Urine Urobilinogen 0.2 (NORMAL) E.U./dL (NORMAL) 03/29/19 18:23 Ur Leukocyte Esterase TRACE (NEGATIVE) H 03/29/19 18:23 Urine RBC 0-5 /HPF (0-5) 03/29/19 18:23 Urine WBC 6-10 /HPF (0-5) H 03/29/19 18:23 Ur Squamous Epith Cells MANY Squamous (<= Few) H 03/29/19 18:23 Urine Bacteria Few /HPF (None Seen) 03/29/19 18:23 Urine Culture Comments NOT INDICATED 03/29/19 18:23 - Procedures Procedures: Procedures EXCIS KNEE SEMILUN CARTL (10/20/14) KNEE STRUCTURE DIVISION (10/20/14) TOTAL KNEE REPLACEMENT (12/03/13) Sepsis Event Note (H) - Evaluation Current Stage of Sepsis: Ruled out ABX Reporting Has patient been on IV antibiotics over the past 48 hours?: No
[2019-03-31] MEDS: HEPARIN 5,000 UNIT/ML VIAL SUBQ SCH ×2 (10:24→20:06)
--- NOTE | 2019-03-31 16:43 | PROVIDER PROGRESS NOTE ---
Subjective - Prog Note Date Prog Note Date: 03/31/19 - Subjective Pt reports feeling: No change Subjective: pt could not tolerate soft low residue diet. Surgeon recommend monitor pt overnight. encourage pt safely ambulate Current Medications - Current Medications Current Medications: Active Medications Amitriptyline HCl (Elavil) 25 mg PO QPM [facility] Last Admin: 03/30/19 20:25 Dose: 25 mg Atorvastatin Calcium (Lipitor) 20 mg PO QPM [facility] Last Admin: 03/30/19 20:26 Dose: 20 mg Benzocaine/Butamben/Tetracaine HCl (Cetacaine [place]) 1 sprays MM Q6H PRN PRN Reason: PAIN Last Admin: 03/29/19 12:30 Dose: 1 sprays Fluoxetine HCl (Prozac) 40 mg PO DAILY [facility] Last Admin: 03/31/19 08:50 Dose: 40 mg Gabapentin (Neurontin) 300 mg PO TID [facility] Last Admin: 03/31/19 15:52 Dose: 300 mg Heparin Sodium (Porcine) () 5,000 unit SUBQ BID [facility] Last Admin: 03/31/19 10:24 Dose: 5,000 unit Levothyroxine Sodium (Synthroid) 100 mcg PO QDAC [facility] Last Admin: 03/31/19 06:00 Dose: 100 mcg Lorazepam (Ativan) 1 mg PO Q8H PRN PRN Reason: Anxiety Ondansetron HCl (Zofran Inj) 4 mg IVP Q6HR PRN PRN Reason: Nausea / Vomiting Last Admin: 03/30/19 00:39 Dose: 4 mg Pantoprazole Sodium (Protonix) 40 mg IVP QDAC [facility] Last Admin: 03/31/19 06:00 Dose: 40 mg Sodium Chloride (Normal Saline Flush 0.9%) 10 ml IVP PRN PRN PRN Reason: NEEDED PER PROVIDER ORDERS Last Admin: 03/31/19 06:01 Dose: 10 ml Sodium Chloride (Normal Saline Flush 0.9%) 10 ml IVP 0100,0900,1700 [facility] Last Admin: 03/31/19 16:35 Dose: Not Given Topiramate (Topamax) 200 mg PO DAILY [facility] Last Admin: 03/31/19 08:51 Dose: 200 mg Zolpidem Tartrate (Ambien) 5 mg PO QPM [facility] Last Admin: 03/30/19 20:28 Dose: 5 mg Levothyroxine Inj [Synthroid Inj] 100 mcg ORAL DAILY 12/18/13 Atorvastatin [Lipitor] 20 mg PO DAILY 10/08/14 Omeprazole 20 mg PO DAILY 10/08/14 Amitriptyline HCl 25 mg PO QPM 03/29/19 Estradiol 1 tab PV Q7D 03/29/19 Fluoxetine HCl [Prozac] 80 mg PO DAILY 03/29/19 Gabapentin 600 mg PO QPM 03/29/19 LORazepam [Lorazepam] 1 mg PO Q8H PRN 03/29/19 Topiramate [Topamax] 200 mg PO DAILY 03/29/19 Zolpidem Tartrate 5 mg PO QPM 03/29/19 Objective - Vital Signs/Intake & Output Reviewed Vital Signs: Yes Vital Signs: Vital Signs x48h Temp Pulse Resp BP Pulse Ox 03/31/19 16:00 36.8 C 77 18 110/68 96 03/31/19 11:25 36.8 C 80 16 111/73 95 Intake & Output: Intake & Output 03/28/19 03/29/19 03/30/19 03/31/19 23:59 23:59 23:59 23:59 Intake Total 1000 2220 2684 3060 Output Total 50 2901 3475 Balance 1000 2170 217 415 - Objective General Appearance: positive: No acute distress, Alert. negative: Lethargic Eyes Bilateral: positive: Normal inspection, PERRL, No lid inflammation, Conjunctivae nml ENT: positive: ENT inspection nml, Pharynx nml, No signs of dehydration. negative: Purulent nasal drainage, Pharyngeal erythema, Oral lesions Neck: positive: Nml inspection, Thyroid nml, No JVD, Trachea midline. negative: Thyromegaly, Lymphadenopathy (R), Lymphadenopathy (L), Stiff neck, Swelling/b ruising, Tracheal deviation Respiratory: positive: Chest non-tender, No respiratory distress, Breath sounds nml. negative: Wheezes, Rales, Rhonchi Cardiovascular: positive: Regular rate & rhythm, No murmur, No gallop. negative: Irregularly irregular, Extrasystoles, Tachycardia, Bradycardia, JVD present, Systolic murmur, Diastolic murmur Peripheral Pulses: 2+ Radial (R), 2+ Radial (L), 2+ Dorsalis pedis (R), 2+ Dorsalis pedis (L) Abdomen: positive: Non-tender, No organomegaly, Nml bowel sounds, No distention. negative: Tenderness, Guarding, Rebound Back: positive: Nml inspection. negative: CVA tenderness (R), CVA tenderness (L) Skin: positive: Color nml, No rash, Warm, Dry. negative: Cyanosis, Diaphoresis, Pallor Extremities: positive: Non-tender, Full ROM, Nml appearance. negative: Calf tenderness, Joint swelling, Mario's sign/cords Neurologic/Psychiatric: positive: Oriented x3, Motor nml, Sensation nml, Mood/affect nml. negative: Weakness, Sensory loss, Facial droop, Slurred/abnml speech, Depressed mood/affect - Lab Results Fish Bones: 04/01/19 05:19 04/01/19 05:19 Other Labs: Lab Results x24hrs 03/31/19 03/31/19 Range/Units 05:36 05:36 WBC 10.5 (4.8-10.8) x10^3/uL RBC 4.57 (4.20-5.40) 10^6/uL Hgb 13.8 (12.0-16.0) g/dL Hct 42.3 (37.0-47.0) % MCV 92.6 (81.0-99.0) fL MCH 30.2 (27.0-31.0) pg MCHC 32.6 (32.0-36.0) g/dL RDW 12.6 (12.0-15.0) % Plt Count 338 (130-450) 10^3/uL MPV 7.8 L (7.9-10.8) fL Neut # (Auto) 6.2 (1.5-6.6) 10^3/uL Lymph # (Auto) 3.1 (1.5-3.5) 10^3/uL [place] # (Auto) 0.9 (0.0-1.0) 10^3/uL Eos # (Auto) 0.3 (0.0-0.7) 10^3/uL Baso # (Auto) 0.1 (0.0-0.1) 10^3/uL Absolute Nucleated RBC 0.00 x10^3/uL Nucleated RBC % 0.0 /100WBC Sodium 138 (135-145) mmol/L Potassium 3.8 (3.5-5.0) mmol/L Chloride 108 (101-111) mmol/L Carbon Dioxide 21 (21-32) mmol/L Anion Gap 9.0 (6-13) BUN 11 (6-20) mg/dL Creatinine 0.9 (0.4-1.0) mg/dL Estimated GFR (MDRD) 63 L (>89) Glucose 104 H (70-100) mg/dL Calcium 8.8 (8.5-10.3) mg/dL Total Bilirubin 0.3 (0.2-1.0) mg/dL AST 10 (10-42) IU/L ALT 11 (10-60) IU/L Alkaline Phosphatase 57 (42-121) IU/L Total Protein 6.4 L (6.7-8.2) g/dL Albumin 2.8 L (3.2-5.5) g/dL Globulin 3.6 (2.1-4.2) g/dL Albumin/Globulin Ratio 0.8 L (1.0-2.2) ABX Reporting Has patient been on IV antibiotics over the past 48 hours?: No Sepsis Event Note (H) - Evaluation Current Stage of Sepsis: Ruled out Assessment/Plan - Problem List (1) Small bowel obstruction Impression: 03/31 pt can not tolerate soft diet. Unclear if cause of SBO which is now resolving. surgeon recommend to monitor pt overnight. encourage pt have ambulation. followup GI surgeon hold opiates pain meds 03/30 great improved. pt had large bowel movement passed into his ileuostomy bag. pt denies N/V, and abdominal discomfort. encourage pt have ambulation. followup GI surgeon start clear diet tonight limited opiates usage 03/29 pt persistently had N/V and mild abdominal pain. CT of abdomen ordered and showed bowel obstruction within the parastomal hernia causing obstruction. NG was insert to pt, Xray confirmed at the place. followup GI surgeon continue NG tube care NPO with D5 IVF pain control discussed with pt and her boyfriend, hope pt can have movement or ambulation. (2) Hypothyroidism Conclusion/Plan: On Synthroid at home. TSH is within normal limits. - Resume home Synthroid once taking PO (3) Depression Conclusion/Plan: She is on Fluoxetine at home. Stable. - Resume home medication once taking PO (4) Fibromyalgia Conclusion/Plan: 03/31 discussed with pa about pain control. pt agree hold opiates now for her bowel obstruction. This is a new diagnosis for her and she has been started on amitriptyline and gabapentin. Stable. - Restart home medications once dosage is confirmed and she is taking PO (5) History of ulcerative colitis Conclusion/Plan: 03/29 continue ileostomy care (6) leukocytosis 03/31 pt's WBC is down to 10.5 now. pt denies dysuria, respiratory distress, abdominal pain is controlled continue lab and vital monitor 03/30 pt's WBC increase to 17.9 from 12.5 on yesterday. UA analysis is likely negative for infection, pt has no respiratory distress. pt has no fever, chill. pt has hx of slight high WBC. unknown etiology. continue lab monitor, vital monitor
[2019-03-31] MEDS: ATORVASTATIN 40 MG TABLET PO SCH (20:04)
[2019-03-31] MEDS: ZOLPIDEM 5 MG TABLET PO SCH (20:05)
[2019-03-31] MEDS: AMITRIPTYLINE 25 MG TABLET PO SCH (20:09)
[2019-04-01] MEDS: SODIUM CHLORIDE FLUSH 0.9% 10 ML SYRINGE IVP SCH ×2 (03:06→08:33)
[2019-04-01 05:42] LABS: BASOPHILS % (AUTO) 0.3 %; EOSINOPHILS # (AUTO) 0.2 10^3/uL (0.0-0.7); EOSINOPHILS % (AUTO) 1.8 %; HGB - HEMOGLOBIN 13.5 g/dL (12.0-16.0); LYMPHOCYTES # (AUTO) 2.9 10^3/uL (1.5-3.5); LYMPHOCYTES % (AUTO) 33.3 %; MEAN CORPUSCULAR HEMOGLOBIN 29.3 pg (27.0-31.0); MEAN CORPUSCULAR HGB CONC 32.7 g/dL (32.0-36.0); MEAN CORPUSCULAR VOLUME 89.8 fL (81.0-99.0); MEAN PLATELET VOLUME 7.7 fL (7.9-10.8); MONOCYTES # (AUTO) 0.9 10^3/uL (0.0-1.0); MONOCYTES % (AUTO) 9.8 %; NEUTROPHILS # (AUTO) 4.7 10^3/uL (1.5-6.6); NEUTROPHILS % (AUTO) 54.3 %; PLT - PLATELET COUNT 370 10^3/uL (130-450); RED CELL DISTRIBUTION WIDTH 12.5 % (12.0-15.0); WHITE BLOOD COUNT 8.7 x10^3/uL (4.8-10.8)
[2019-04-01 05:44] LABS: CALCIUM 8.8 mg/dL (8.5-10.3); CREATININE 0.9 mg/dL (0.4-1.0)
[2019-04-01] MEDS: GABAPENTIN 300 MG CAPSULE PO SCH (06:41)
[2019-04-01] MEDS: LEVOTHYROXINE 100 MCG TABLET PO SCH (06:41)
[2019-04-01] MEDS: PANTOPRAZOLE 40 MG VIAL IVP SCH ×2 (06:41→06:56)
[2019-04-01] MEDS: SODIUM CHLORIDE FLUSH 0.9% 10 ML SYRINGE IVP PRN (06:42)
[2019-04-01] MEDS ORDERED: PANTOPRAZOLE 40 MG TABLET PO SCH (07:00)
[2019-04-01 07:37] VITALS: BP 106/74
[2019-04-01] MEDS: TOPIRAMATE 100 MG TABLET PO SCH (08:29)
[2019-04-01] MEDS: FLUoxetine 10 MG CAPSULE PO SCH (08:31)
[2019-04-01] MEDS: HEPARIN 5,000 UNIT/ML VIAL SUBQ SCH (08:33)
--- NOTE | 2019-04-01 08:53 | Discharge Plan ---
Discharge Plan Problem Reviewed?: Yes Disposition: Home, Self Care Condition: Poor Diet: Regular Activity Restrictions: Activity as Tolerated Shower Restrictions: No (fall precaution) Instruction Topics: Obstruction Sm Bowel, Hernia Health Concerns: small bowel obstruction and hernia Plan of Treatment: your SBO was resolved by yourself. Encourage you safely ambulate and exercise as you can, Outpt followup Dr. Jan Puri's office in 1-2 weeks. Care Goals: stabilization and improvement of your medical conditions Assessment: assessment as the above Additional Instructions or Follow Up instructions: you may followup your PCP in two weeks, Outpt followup Dr. Jan Puri's office in 1-2 weeks. Should your symptoms return or worsen, you may present ER or call 911 for help. No Smoking: If you smoke, Please STOP! Call for help. Follow-up with: Lotus Umana ARNP, [facility] [Primary Care Provider] -
[2019-04-01] MEDS ORDERED: MORPHINE SOL 10 MG/0.5 ML SYRINGE PO SCH (09:00)
--- NOTE | 2019-04-01 09:04 | DISCHARGE SUMMARY ---
"Discharge Summary Discharge Date: 04/01/19 Discharging Provider: MANCILLA Primary Care Provider: Louts Davila Condition at Discharge: Poor Discharge Disposition: 01 Home, Self Care Discharge Facility Name: home - DIAGNOSES Admission Diagnoses: (1) Partial small bowel obstruction (2) Hypothyroidism (3) Depression (4) Fibromyalgia (5) History of ulcerative colitis Discharge Diagnoses with Status of Each Condition: (1) Small bowel obstruction resolved. pt had bowel movement and tolerate diet. (2) Hypothyroidism stable (3) Depression stable (4) Fibromyalgia stable (5) History of ulcerative colitis stable (6) leukocytosis resolved - [facility] History of Present Illness: refer from DR. Olson' HPI on 03/28/19 This is a 64 year old female with a past medical history significant for ulcerative colitis s/p colectomy with end ileostomy, depression and hyp othyroidism who presents from home due to worsening abdominal cramping and pain. The pain began around 11am but progressed throughout the evening and so she seeked medical attention as she felt she would not last through the night with the pain. Her pain has improved since receiving IV pain medication in the ER. She did not have associated nausea or vomiting but did have an episode of vomiting while in the ER. She also noticed decreased output from her ileostomy that began this morning. She reports no change in the color of the output and that it was nonbloody. She did notice that it was more liquid than usual. She denies fevers and chills. She reports a history of ulcerative colitis and that she underwent colectomy in 1977. In the ER, she was afebrile, normotensive and without tachycardia. Labs were significant for an elevated white count and decreased bicarbonate. Abdominal film suggestive of small bowel obstruction with transition zone in the mid to right lower quadrant. She will be admitted for further management. - CONSULTS | PROCEDURES Consultations: Dr. Jan Puri Procedures: no procedure required. SBO was resolved by herself - HOSPITAL COURSE Hospital Course: pt was admitted for nausea, vomiting and abdominal pain. pt was found to have small bowel obstruction. Dr. Jan Puri GI surgeon was consulted. after treatment, encourage pt ambulate. pt's SBO was resolved by its own. pt had large bowel movement, and pt tolerate diet. pt has no more nausea, vomiting or abdominal pain. GI surgeon d/c pt as well. The detail hospital course is as the below 1) Small bowel obstruction resolved by her own. No further intervention was required. pt had bowel movement and tolerate diet. followup Surgeon in 1-2 weeks (2) Hypothyroidism stable (3) Depression stable (4) Fibromyalgia stable (5) History of ulcerative colitis stable (6) leukocytosis resolved - ALLERGIES Allergies/Adverse Reactions: Allergies Allergy/AdvReac Type Severity Reaction Status Date / Time hydrocodone bitartrate * Allergy Mild Itching Verified 10/08/14 11:19 [From Vicodin] Penicillins Allergy Unknown Unknown Verified 10/08/14 11:19 Sulfa (Sulfonamide Allergy Unknown Unknown Verified 10/08/14 11:19 Antibiotics) hydrocodone AdvReac Severe Chest pain Verified 10/20/14 12:39 /SOB oxycodone HCl * AdvReac Severe Chest Verified 10/20/14 12:39 [From OxyContin] Pain/SOB - MEDICATIONS Home Medications: Ambulatory Orders Medication Instructions Recorded Confirmed Levothyroxine Inj [Synthroid Inj] 100 mcg ORAL DAILY 12/18/13 03/29/19 Atorvastatin [Lipitor] 20 mg PO DAILY 10/08/14 03/29/19 Omeprazole 20 mg PO DAILY 10/08/14 03/29/19 Amitriptyline HCl 25 mg PO QPM 03/29/19 03/29/19 Estradiol 1 tab PV Q7D 03/29/19 03/29/19 Fluoxetine HCl [Prozac] 80 mg PO DAILY 03/29/19 03/29/19 Gabapentin 600 mg PO QPM 03/29/19 03/29/19 LORazepam [Lorazepam] 1 mg PO Q8H PRN 03/29/19 03/29/19 Topiramate [Topamax] 200 mg PO DAILY 03/29/19 03/29/19 Zolpidem Tartrate 5 mg PO QPM 03/29/19 03/29/19 - PHYSICAL EXAM AT DISCHARGE General Appearance: positive: No acute distress, Alert. negative: Lethargic Eyes Bilateral: positive: Normal inspection, PERRL, No lid inflammation, Conjunctivae nml ENT: positive: ENT inspection nml, Pharynx nml, No signs of dehydration. negative: Purulent nasal drainage, Pharyngeal erythema, Oral lesions Neck: positive: Nml inspection, Thyroid nml, No JVD, Trachea midline. negative: Thyromegaly, Lymphadenopathy (R), Lymphadenopathy (L), Stiff neck, Swelling /bruising, Tracheal deviation Respiratory: positive: Chest non-tender, No respiratory distress, Breath sounds nml. negative: Wheezes, Rales, Rhonchi Cardiovascular: positive: Regular rate & rhythm, No murmur, No gallop. negative: Irregularly irregular, Extrasystoles, Tachycardia, Bradycardia, JVD present, Systolic murmur, Diastolic murmur Peripheral Pulses: positive: 2+ Abdomen: positive: Non-tender, No organomegaly, Nml bowel sounds, No distention, Other (colonostomy bag is at right side of abdomen). negative: Tenderness, Guarding, Rebound Back: positive: Nml inspection. negative: CVA tenderness (R), CVA tenderness (L) Skin: positive: Color nml, No rash, Warm, Dry. negative: Cyanosis, Diaphoresis, Pallor Extremities: positive: Non-tender, Full ROM, Nml appearance. negative: Calf tenderness, Joint swelling, Mario's sign/cords Neurologic/Psychiatric: positive: Oriented x3, Motor nml, Sensation nml, Mood/affect nml. negative: Weakness, Sensory loss, Facial droop, Slurred/abnml speech, Depressed mood/affect - LABS Result Diagrams: 04/01/19 05:19 04/01/19 05:19 - SEPSIS Current Stage of Sepsis: Ruled out - FOLLOW UP Follow Up: your SBO was resolved by yourself. Encourage you safely ambulate and exercise as you can, Outpt followup Dr. Jan Puri's office in 1-2 weeks. you may followup your PCP in two weeks, Outpt followup Dr. Jan Puri's office in 1-2 weeks. Should your symptoms return or worsen, you may present ER or call 911 for help. - TIME SPENT Time Spent in Discharge (Minutes): 50"
== END 2019-04-01 10:40 | disposition home or self-care (01) | DRG 395 ==
LOC: ED 18:53 → MS2 22:49
PROVIDERS: ADMIT Internal Medicine; ATTEND Nurse Practitioner Gerontology
DX: K56.609 Unspecified intestinal obstruction, unspecified as to partial versus complete obstruction (principal); K43.3 Parastomal hernia with obstruction, without gangrene; D72.829 Elevated white blood cell count, unspecified; E03.9 Hypothyroidism, unspecified; K21.9 Gastro-esophageal reflux disease without esophagitis; R32 Unspecified urinary incontinence; F32.9 Major depressive disorder, single episode, unspecified; F41.0 Panic disorder [episodic paroxysmal anxiety]; M19.90 Unspecified osteoarthritis, unspecified site; M79.7 Fibromyalgia; E78.00 Pure hypercholesterolemia, unspecified; Z96.659 Presence of unspecified artificial knee joint; Z93.2 Ileostomy status; Z90.49 Acquired absence of other specified parts of digestive tract; Z87.19 Personal history of other diseases of the digestive system; Z72.9 Problem related to lifestyle, unspecified; Z83.79 Family history of other diseases of the digestive system
CPT/HCPCS: 36415; 74018; 74019; 74177; 80048; 80053; 81001; 83605; 83690; 83735; 84100; 84443; 85025; 96361; 96374; 99284; 99285; A9270; J1170; J3490; J7120; Q9963; Q9967; 87086

== ENCOUNTER 2019-05-23 08:12 | Outpatient (CLI) | payer MEDICAID, MEDICARE ==
--- NOTE | 2019-05-23 14:36 | XRAY Report ---
Reason: LOW BACK PAIN,LEFT WRIST PAIN Procedure Date: 05/23/2019 Accession Number: [id number] / [id number] Procedure: XR - Pelvis 1 View CPT Code: Final Report FULL RESULT: EXAM: PELVIS RADIOGRAPHY EXAM DATE: 05/23/2019 08:46 AM. CLINICAL HISTORY: LOW BACK PAIN,LEFT WRIST PAIN. COMPARISON: 09/09/2013 2:49 PM. TECHNIQUE: 1 view. FINDINGS: Bones: DJD lower lumbosacral spine No fracture or bone lesion. Joints: The visualized hip, pubis symphysis, and sacroiliac joints are preserved. No subluxation. Soft Tissues: Pelvic clips No soft tissue swelling. IMPRESSION: Normal pelvis radiography. [facility]
--- NOTE | 2019-05-23 14:37 | XRAY Report ---
Reason: LOW BACK PAIN,LEFT WRIST PAIN Procedure Date: 05/23/2019 Accession Number: [id number] / [id number] Procedure: XR - Wrist 2 View LT CPT Code: Final Report FULL RESULT: EXAM: LEFT WRIST RADIOGRAPHY EXAM DATE: 05/23/2019 08:46 AM. CLINICAL HISTORY: LOW BACK PAIN,LEFT WRIST PAIN. COMPARISON: None. TECHNIQUE: 2 views. FINDINGS: Bones: There appeared to be small lucencies in the distal radial metaphyseal region. This is seen on frontal view but not verified on lateral view. Joints: Osteophyte joint space during first metacarpocarpal joint space Soft Tissues: Normal. No soft tissue swelling. IMPRESSION: Possible lucencies distal radius. Additional views may be helpful [facility]
--- NOTE | 2019-05-23 14:39 | XRAY Report ---
Reason: LOW BACK PAIN,LEFT WRIST PAIN Procedure Date: 05/23/2019 Accession Number: [id number] / [id number] Procedure: XR - Lumbar Spine 2 View CPT Code: Final Report FULL RESULT: EXAM: LUMBOSACRAL SPINE RADIOGRAPHY EXAM DATE: 05/23/2019 08:43 AM. CLINICAL HISTORY: LOW BACK PAIN,LEFT WRIST PAIN. COMPARISONS: LUMBAR SPINE 2 VIEW 12/29/2017 10:44 AM. TECHNIQUE: 3 views. FINDINGS: Well aligned lumbar spine with no acute displaced fractures. Chronic anterior wedge compression fracture deformity of L2 vertebral body with 25% loss of vertebral body height, unchanged since prior. Facet arthropathy from L3-S1 levels with suggestion of grade 1 retrolisthesis of L2 over L3 and grade 1 anterolisthesis of L4 over L5. Grossly calcified round focus is seen in right upper quadrant, likely a gallstone. IMPRESSION: Well aligned lumbar spine with no acute displaced fracture. Facet arthropathy from L3-S1 levels with suggestion of grade 1 retrolisthesis of L2 over L3 and grade 1 anterolisthesis of L4 over L5. Overall findings are unchanged since 12 29 17. [facility]
== END 2019-05-23 08:13 | disposition home or self-care (01) ==
LOC: DI 08:12
PROVIDERS: ATTEND Internal Medicine Rheumatology
DX: M47.816 Spondylosis without myelopathy or radiculopathy, lumbar region (principal); M47.817 Spondylosis without myelopathy or radiculopathy, lumbosacral region; M25.532 Pain in left wrist; M43.8X6 Other specified deforming dorsopathies, lumbar region
CPT/HCPCS: 72100; 72170

== ENCOUNTER 2019-08-29 05:29 | Outpatient (CLI) | payer MEDICARE ==
[2019-08-29 06:05] LABS: GLUCOSE 93 mg/dL (70-100)
[2019-08-29 06:06] LABS: CRP - C-REACTIVE PROTEIN < 1.0 mg/dL (0-1.0)
== END 2019-08-29 05:30 | disposition home or self-care (01) ==
LOC: LAB 05:29
PROVIDERS: ATTEND Nurse Practitioner
DX: M35.3 Polymyalgia rheumatica (principal)
CPT/HCPCS: 36415; 82947; 85651; 86140

== ENCOUNTER 2019-12-02 08:00 | Outpatient (CLI) | payer MEDICARE ==
[2019-12-03 08:26] LABS: CLARITY,URINE CLEAR (CLEAR); LEUKOCYTE ESTERASE, URINE TRACE (NEGATIVE); NITRITE,URINE NEGATIVE (NEGATIVE); OCCULT BLOOD,URINE TRACE-INTACT (NEGATIVE); PROTEIN,URINE NEGATIVE (NEGATIVE); UROBILINOGEN,URINE 0.2 (NORMAL) E.U./dL (NORMAL)
[2019-12-03 08:27] LABS: BACTERIA,URINE None Seen /HPF (None Seen); BILIRUBIN,URINE NEGATIVE (NEGATIVE); GLUCOSE, URINE (UA) NEGATIVE (NEGATIVE); KETONES,URINE (UA) NEGATIVE (NEGATIVE); RBC,URINE 0-5 /HPF (0-5); SQUAMOUS EPITHELIAL CELL,UR MOD Squamous (<= Few)
== END 2019-12-02 08:01 | disposition home or self-care (01) ==
LOC: LAB.R 08:00
PROVIDERS: ATTEND Nurse Practitioner
DX: N81.6 Rectocele (principal); R11.0 Nausea; R10.9 Unspecified abdominal pain; N81.10 Cystocele, unspecified
CPT/HCPCS: 81001; 81002; 81003; 87086

== ENCOUNTER 2019-12-02 15:14 | Outpatient (CLI) | payer MEDICARE ==
[2019-12-02 18:00] LABS: BASOPHILS # (AUTO) 0.1 10^3/uL (0.0-0.1); BASOPHILS % (AUTO) 0.5 %; EOSINOPHILS # (AUTO) 0.2 10^3/uL (0.0-0.7); EOSINOPHILS % (AUTO) 2.1 %; HGB - HEMOGLOBIN 14.8 g/dL (12.0-16.0); LYMPHOCYTES # (AUTO) 1.8 10^3/uL (1.5-3.5); LYMPHOCYTES % (AUTO) 16.8 %; MEAN CORPUSCULAR HEMOGLOBIN 30.8 pg (27.0-31.0); MEAN CORPUSCULAR HGB CONC 32.5 g/dL (32.0-36.0); MEAN CORPUSCULAR VOLUME 94.8 fL (81.0-99.0); MONOCYTES # (AUTO) 0.7 10^3/uL (0.0-1.0); MONOCYTES % (AUTO) 6.3 %; NEUTROPHILS % (AUTO) 73.8 %; PLT - PLATELET COUNT 318 10^3/uL (130-450); RED CELL DISTRIBUTION WIDTH 13.2 % (12.0-15.0); WHITE BLOOD COUNT 10.8 x10^3/uL (4.8-10.8)
[2019-12-02 18:14] LABS: ALBUMIN 3.6 g/dL (3.2-5.5); ALBUMIN/GLOBULIN RATIO 1.1 (1.0-2.2); BILIRUBIN,TOTAL 0.6 mg/dL (0.2-1.0); CALCIUM 9.3 mg/dL (8.5-10.3); CREATININE 0.9 mg/dL (0.4-1.0)
== END 2019-12-02 23:59 | disposition home or self-care (01) ==
LOC: LAB.WCP 15:14
PROVIDERS: ATTEND Nurse Practitioner
DX: R10.9 Unspecified abdominal pain (principal); R11.0 Nausea; Z43.9 Encounter for attention to unspecified artificial opening; K51.90 Ulcerative colitis, unspecified, without complications
CPT/HCPCS: 36415; 80053; 85025

== ENCOUNTER 2019-12-02 16:27 | Outpatient (CLI) | payer MEDICARE ==
[2019-12-02 16:46] LABS: BASOPHILS # (AUTO) 0.1 10^3/uL (0.0-0.1); BASOPHILS % (AUTO) 0.5 %; EOSINOPHILS # (AUTO) 0.2 10^3/uL (0.0-0.7); EOSINOPHILS % (AUTO) 1.6 %; HGB - HEMOGLOBIN 14.7 g/dL (12.0-16.0); LYMPHOCYTES # (AUTO) 1.8 10^3/uL (1.5-3.5); LYMPHOCYTES % (AUTO) 18.5 %; MEAN CORPUSCULAR HEMOGLOBIN 31.5 pg (27.0-31.0); MEAN CORPUSCULAR VOLUME 95.3 fL (81.0-99.0); MEAN PLATELET VOLUME 7.8 fL (7.9-10.8); MONOCYTES # (AUTO) 0.6 10^3/uL (0.0-1.0); MONOCYTES % (AUTO) 5.5 %; NEUTROPHILS # (AUTO) 7.3 10^3/uL (1.5-6.6); NEUTROPHILS % (AUTO) 73.4 %; PLT - PLATELET COUNT 276 10^3/uL (130-450); RED BLOOD COUNT 4.67 10^6/uL (4.20-5.40); RED CELL DISTRIBUTION WIDTH 13.1 % (12.0-15.0); WHITE BLOOD COUNT 9.9 x10^3/uL (4.8-10.8)
[2019-12-02 16:57] LABS: ALBUMIN 3.7 g/dL (3.2-5.5); ALBUMIN/GLOBULIN RATIO 1.1 (1.0-2.2); BILIRUBIN,TOTAL 0.6 mg/dL (0.2-1.0); CALCIUM 9.1 mg/dL (8.5-10.3); CREATININE 0.9 mg/dL (0.4-1.0)
[2019-12-02] MEDS ORDERED: IOVERSOL 320 50 ML VIAL ONE (17:18)
[2019-12-02] MEDS ORDERED: IOVERSOL 320 100 ML VIAL IVP ONE ×2 (18:32→19:49)
[2019-12-02] MEDS ORDERED: IOVERSOL 320 50 ML VIAL PO ONE (19:49)
--- NOTE | 2019-12-02 19:51 | CT Report ---
Reason: ABD PAIN Procedure Date: 12/02/2019 Accession Number: [id number] / [id number] Procedure: CT - Abdomen/Pelvis W CPT Code: Final Report FULL RESULT: EXAM: CT ABDOMEN AND PELVIS EXAM DATE: 12/02/2019 07:04 PM. CLINICAL HISTORY: Abdominal pain. COMPARISONS: ABDOMEN/PELVIS W/ 03/29/2019 1:20 PM. TECHNIQUE: Routine helical CT imaging was performed through the abdomen and pelvis. IV contrast: Optiray-320. Enteric contrast: No. Reconstructions: Coronal and sagittal. In accordance with CT protocol optimization, one or more of the following dose reduction techniques were utilized for this exam: automated exposure control, adjustment of mA and/or KV based on patient size, or use of iterative reconstructive technique. FINDINGS: Lung Bases: Unremarkable. Liver: Mild hepatic steatosis. Gallbladder/Bile Ducts: Cholelithiasis. No CT evidence of acute cholecystitis. No intrahepatic or extrahepatic biliary ductal dilatation. Spleen: Normal. Pancreas: Normal. Adrenal Glands: Normal. Kidneys: Normal. No masses or hydronephrosis. Peritoneal Cavity/Bowel: Patient is status post total colectomy with right anterior abdominal wall ileostomy. Stable parastomal hernia containing several loops of small bowel without evidence of strangulation or obstruction. Retroperitoneum: No retroperitoneal lymphadenopathy. Pelvic Organs: Urinary bladder unremarkable. Uterus within normal limits. No adnexal masses. Vasculature: No aneurysms or other significant abnormality. Bones: No significant focal osseous lesions. Grade 1 anterolisthesis of L4 on L5. Other: None. IMPRESSION: 1. No acute findings in the abdomen or pelvis. 2. Patient status post total colectomy with right anterior abdominal wall ileostomy and stable parastomal hernia containing several loops of small bowel without evidence of strangulation or obstruction. 3. Cholelithiasis without CT evidence of acute cholecystitis. 4. Mild hepatic steatosis. RADIA The call report notification system was initiated by Dr. Андрей Godoy at 07:49 PM on 12/02/2019.
== END 2019-12-02 16:28 | disposition home or self-care (01) ==
LOC: LAB 16:27 → DI 16:28
PROVIDERS: ATTEND Nurse Practitioner
DX: K80.20 Calculus of gallbladder without cholecystitis without obstruction (principal); K76.0 Fatty (change of) liver, not elsewhere classified; K43.5 Parastomal hernia without obstruction or gangrene; Z90.49 Acquired absence of other specified parts of digestive tract; Z93.2 Ileostomy status
CPT/HCPCS: 36415; 74177; 80053; 85025; Q9967

== ENCOUNTER 2019-12-04 08:30 | Outpatient (CLI) | payer MEDICARE ==
[2019-12-04 08:48] LABS: BASOPHILS # (AUTO) 0.1 10^3/uL (0.0-0.1); BASOPHILS % (AUTO) 0.6 %; EOSINOPHILS # (AUTO) 0.2 10^3/uL (0.0-0.7); EOSINOPHILS % (AUTO) 2.3 %; HGB - HEMOGLOBIN 14.9 g/dL (12.0-16.0); LYMPHOCYTES # (AUTO) 2.8 10^3/uL (1.5-3.5); LYMPHOCYTES % (AUTO) 29.7 %; MEAN CORPUSCULAR HEMOGLOBIN 29.7 pg (27.0-31.0); MEAN CORPUSCULAR HGB CONC 32.3 g/dL (32.0-36.0); MEAN CORPUSCULAR VOLUME 92.2 fL (81.0-99.0); MEAN PLATELET VOLUME 7.6 fL (7.9-10.8); MONOCYTES # (AUTO) 0.8 10^3/uL (0.0-1.0); MONOCYTES % (AUTO) 8.4 %; NEUTROPHILS # (AUTO) 5.6 10^3/uL (1.5-6.6); NEUTROPHILS % (AUTO) 58.5 %; PLT - PLATELET COUNT 287 10^3/uL (130-450); RED BLOOD COUNT 5.01 10^6/uL (4.20-5.40); RED CELL DISTRIBUTION WIDTH 13.1 % (12.0-15.0); WHITE BLOOD COUNT 9.6 x10^3/uL (4.8-10.8)
[2019-12-04 09:02] LABS: CREATININE 1.1 mg/dL (0.4-1.0)
[2019-12-04 09:41] LABS: BILIRUBIN,URINE NEGATIVE (NEGATIVE); GLUCOSE, URINE (UA) NEGATIVE (NEGATIVE); KETONES,URINE (UA) NEGATIVE (NEGATIVE); LEUKOCYTE ESTERASE, URINE NEGATIVE (NEGATIVE); NITRITE,URINE NEGATIVE (NEGATIVE); OCCULT BLOOD,URINE NEGATIVE (NEGATIVE); PROTEIN,URINE NEGATIVE (NEGATIVE); UROBILINOGEN,URINE 0.2 (NORMAL) E.U./dL (NORMAL)
[2019-12-04 09:43] LABS: CLARITY,URINE CLEAR (CLEAR)
[2019-12-04 10:44] LABS: BACTERIA,URINE Rare /HPF (None Seen); RBC,URINE 0-5 /HPF (0-5); SQUAMOUS EPITHELIAL CELL,UR FEW Squamous (<= Few)
== END 2019-12-04 08:31 | disposition home or self-care (01) ==
LOC: LAB 08:30
PROVIDERS: ATTEND Internal Medicine Rheumatology
DX: D75.89 Other specified diseases of blood and blood-forming organs (principal); M35.3 Polymyalgia rheumatica; N28.9 Disorder of kidney and ureter, unspecified
CPT/HCPCS: 36415; 81001; 82565; 85025; 85651

== ENCOUNTER 2019-12-19 08:38 | Outpatient (CLI) | payer MEDICARE ==
[2019-12-19] MEDS ORDERED: SINCALIDE 5 MCG VIAL ONE (10:14)
[2019-12-19] MEDS ORDERED: SINCALIDE 2.09 MCG in SODIUM CHLORIDE 0.9% 50 ML IV ONE (14:15)
--- NOTE | 2019-12-19 16:32 | Nuclear Medicine Report ---
Reason: FATTY LIVER, GALLSTONES, ABD PAIN Procedure Date: 12/19/2019 Accession Number: [id number] / [id number] Procedure: NM - Hepatobiliary HIDA w/ Rx CPT Code: Final Report FULL RESULT: EXAM: HEPATOBILIARY SCAN WITH CCK/KINEVAC ADMINISTRATION EXAM DATE: 12/19/2019 12:40 PM. CLINICAL HISTORY: FATTY LIVER, GALLSTONES, ABD PAIN. COMPARISON: ABDOMEN/PELVIS W 12/02/2019 6:55 PM. TECHNIQUE: Following the intravenous administration of 5.0 mCi of Tc99m Mebrofenin, a hepatobiliary scan was done centered on the liver and gallbladder in multiple sequential images and projections. Following the intravenous administration of 2.1 mcg of CCK/ Kinevac over the course of approximately 60 minutes, dynamic imaging was done and the gallbladder ejection fraction was calculated. FINDINGS: Normal clearance of blood pool activity indicating grossly normal hepatocellular function. Liver size and shape grossly normal. Appearance of tracer in the biliary tree as early as 5 minutes, within normal limits. Appearance of tracer in the gallbladder as early as 10 minutes, within normal limits, with good progression of filling throughout the remainder of the initial hour. Appearance of tracer in the small bowel as early as 45 minutes. Following CCK administration, gallbladder ejection fraction is calculated to be 85%, within the normal range (> 38%). No evidence of significant enterogastric bile reflux. IMPRESSION: 1. No scintigraphic evidence of acute cholecystitis. 2. Patent common bile duct. 3. Gallbladder ejection fraction is within the normal range. 4. No evidence of significant enterogastric bile reflux. RADIA
== END 2019-12-19 08:39 | disposition home or self-care (01) ==
LOC: DI 08:38
PROVIDERS: ATTEND Nurse Practitioner
DX: R10.9 Unspecified abdominal pain (principal)
CPT/HCPCS: 78227; J7040

== ENCOUNTER 2020-01-29 08:00 | Outpatient (CLI) | payer MEDICARE ==
[2020-01-29 19:18] LABS: BUN - BLOOD UREA NITROGEN 20 mg/dL (6-20); CALCIUM 9.5 mg/dL (8.5-10.3); CARBON DIOXIDE - CO2 21 mmol/L (21-32); CHLORIDE 107 mmol/L (101-111); CREATININE 1.2 mg/dL (0.4-1.0); GLUCOSE 106 mg/dL (70-100); SODIUM 137 mmol/L (135-145)
[2020-01-29 19:24] LABS: CRP - C-REACTIVE PROTEIN < 1.0 mg/dL (0-1.0)
== END 2020-01-29 23:59 | disposition home or self-care (01) ==
LOC: LAB.WCP 08:00
PROVIDERS: ATTEND Internal Medicine Rheumatology
DX: M35.3 Polymyalgia rheumatica (principal); M25.50 Pain in unspecified joint
CPT/HCPCS: 36415; 80048; 85651; 86021; 86140

== ENCOUNTER 2020-03-10 10:46 | Outpatient (CLI) | payer MEDICARE ==
--- NOTE | 2020-03-10 14:20 | DEXA Report ---
PROCEDURE: Dexa Spine and/or Hip INDICATIONS: OSTEOPOROSIS TECHNIQUE: Dual energy x-ray absorptiometry (DXA) was performed on a [employer] System. Regions measur ed are the AP Spine, femoral neck, and if needed forearm. COMPARISON: 02/14/2013 FINDINGS: Lumbar Spine: Bone Mineral Density 1.105 g/cm/cm,T score -0.6, normal Left Hip: Bone Mineral Density 0.842 g/cm/cm,T score -1.3, mild osteopenia Left Femoral Neck: Bone Mineral Density 0.835 g/cm/cm, T score -1.5, mild to moderate osteopenia (T score greater or equal to -1.0: NORMAL) (T score from -1.1 to -2.4: OSTEOPENIA) (T score less than or equal to -2.5 to: OSTEOPOROSIS) Impression: Mild/moderate osteopenia within the left hip and femoral neck. Although prior exam was do ne in 2013 and secondary to technical differences is not a direct correlation, there are suspected to be mild bone loss. Patients with diagnosis of osteoporosis or osteopenia should have regular bone mineral density assess ment. For those eligible for Medicare, routine testing is allowed once every 2 years. Testing frequ ency can be increased for patients who have rapidly progressing disease or for those who are receivin g medical therapy to restore bone mass. Reviewed by: Marcie Panchal MD on 03/10/2020 2:19 PM PDT Approved by: Marcie Panchal MD on 03/10/2020 2:19 PM PDT Station ID: [id number]
== END 2020-03-10 10:47 | disposition home or self-care (01) ==
LOC: DI 10:46
PROVIDERS: ATTEND Internal Medicine Rheumatology
DX: M85.89 Other specified disorders of bone density and structure, multiple sites (principal)
CPT/HCPCS: 77080

== ENCOUNTER 2020-05-19 10:50 | Outpatient (CLI) | payer MEDICARE | END 2020-05-19 10:51 | disposition home or self-care (01) | LOC: NS 10:50 | PROVIDERS: ATTEND Nurse Practitioner | DX: Z71.3 Dietary counseling and surveillance (principal); N18.30 Chronic kidney disease, stage 3 unspecified | CPT/HCPCS: 97802 ==

== ENCOUNTER 2020-05-27 11:45 | Emergency (ER) | payer MEDICARE ==
--- NOTE | 2020-05-27 12:24 | XRAY Report ---
PROCEDURE: Chest 1 View X-Ray INDICATIONS: cough TECHNIQUE: One view of the chest was acquired. COMPARISON: CT chest dated 12/18/2013 FINDINGS: Surgical changes and devices: None. Lungs and pleura: No pleural effusions or pneumothorax. Small linear opacity is noted in the periph francis of the left lower lung zone likely representing scarring versus atelectasis. No focal consolidati on. Lungs are otherwise clear. Mediastinum: Mediastinal contours appear normal. Heart size is normal. Bones and chest wall: No suspicious bony lesions. Overlying soft tissues appear unremarkable. IMPRESSION: Small linear opacity of the left lower lung likely representing scarring versus subsegmental atelecta sis. Otherwise, no acute cardiopulmonary abnormalities or focal airspace disease. Reviewed by: Alexys Carrillo MD on 05/27/2020 11:22 AM RUST Approved by: Alexys Carrillo MD on 05/27/2020 11:22 AM RUST Station ID: [id number]
[2020-05-27 13:05] LABS: BASOPHILS # (AUTO) 0.1 10^3/uL (0.0-0.1); BASOPHILS % (AUTO) 0.6 %; EOSINOPHILS # (AUTO) 0.4 10^3/uL (0.0-0.7); EOSINOPHILS % (AUTO) 4.5 %; HGB - HEMOGLOBIN 15.7 g/dL (12.0-16.0); LYMPHOCYTES # (AUTO) 3.1 10^3/uL (1.5-3.5); LYMPHOCYTES % (AUTO) 31.2 %; MEAN CORPUSCULAR HEMOGLOBIN 30.8 pg (27.0-31.0); MEAN CORPUSCULAR HGB CONC 34.1 g/dL (32.0-36.0); MEAN CORPUSCULAR VOLUME 90.4 fL (81.0-99.0); MONOCYTES # (AUTO) 0.8 10^3/uL (0.0-1.0); MONOCYTES % (AUTO) 7.8 %; NEUTROPHILS # (AUTO) 5.4 10^3/uL (1.5-6.6); NEUTROPHILS % (AUTO) 55.5 %; PLT - PLATELET COUNT 310 10^3/uL (130-450); RED BLOOD COUNT 5.09 10^6/uL (4.20-5.40); RED CELL DISTRIBUTION WIDTH 12.8 % (12.0-15.0); WHITE BLOOD COUNT 9.8 x10^3/uL (4.8-10.8)
[2020-05-27 13:18] LABS: ALBUMIN 4.1 g/dL (3.2-5.5); ALBUMIN/GLOBULIN RATIO 1.2 (1.0-2.2); BILIRUBIN,TOTAL 0.7 mg/dL (0.2-1.0); CALCIUM 9.4 mg/dL (8.5-10.3); CREATININE 1.1 mg/dL (0.4-1.0); TOTAL PROTEIN 7.6 g/dL (6.7-8.2)
--- NOTE | 2020-05-27 14:48 | ED Physician Documentation ---
History of Present Illness - Stated complaint Stated Complaint: FEVER,BODY ACHE,FATIGUE - Chief complaint Chief Complaint: Abd Pain - Additonal information Additional information: 65-year-old female with a history of chronic kidney disease and ulcerative colitis comes to the emergency department with a number of concerns. She reports that she has acid reflux. She recently stopped taking the omeprazole because she felt it made her symptoms worse. She also states that taking any of her daily vitamins causes acid reflux. She denies any melena or hematic emesis. She also reports a history of polymyalgia. She stopped taking prednisone a number of weeks ago. Since then she has felt fatigued feels like she has brain fog has been sweating and has been having intermittent palpitations. She denies any unilateral leg swelling, cough congestion. She denies dysuria or abdominal pain Review of Systems Constitutional: reports: Chills, Myalgias, Fatigue Eyes: reports: Reviewed and negative Ears: reports: Reviewed and negative Nose: reports: Reviewed and negative Throat: reports: Reviewed and negative Cardiac: reports: Palpitations. denies: Chest pain / pressure, Pedal edema, Calf pain Respiratory: denies: Dyspnea, Cough, Hemoptysis GI: reports: Other (ostomy lower abdomen). denies: Abdominal Pain, Nausea, Vomiting, Hematemesis, Bloody / black stool : denies: Dysuria, Frequency, Hesitancy Skin: denies: Rash, Lesions Musculoskeletal: reports: Back pain, Joint pain Neurologic: reports: Reviewed and negative Psychiatric: reports: Reviewed and negative PD PAST MEDICAL HISTORY - Past Medical History Past Medical History: Yes Cardiovascular: High cholesterol, Other Respiratory: Other Neuro: None Endocrine/Autoimmune: HyPOthyroidism GI: GERD, Ulcerative colitis : Incontinence Psych: Depression, Anxiety, Panic attacks Musculoskeletal: Osteoarthritis, Other Derm: Other - Past Surgical History Past Surgical History: Yes General: Bowel surgery, Colonoscopy Ortho: Knee replacement, Arthroscopic surgery HEENT: Tonsil/Adenoidectomy - Present Medications Home Medications: Ambulatory Orders Medication Instructions Recorded Confirmed Levothyroxine Inj [Synthroid Inj] 100 mcg ORAL DAILY 12/18/13 03/29/19 Amitriptyline HCl 25 mg PO QPM 03/29/19 03/29/19 Fluoxetine HCl [Prozac] 40 mg PO DAILY 03/29/19 03/29/19 Gabapentin 300 mg PO BID 03/29/19 03/29/19 Topiramate [Topamax] 100 mg PO DAILY 03/29/19 03/29/19 Zolpidem Tartrate 5 mg PO QPM 03/29/19 03/29/19 Cephalexin [Keflex] 500 mg PO BID #14 capsule 05/27/20 - Allergies Allergies/Adverse Reactions: Allergies Allergy/AdvReac Type Severity Reaction Status Date / Time hydrocodone bitartrate * Allergy Mild Itching Verified 05/27/20 11:57 [From Vicodin] Penicillins Allergy Unknown Unknown Verified 05/27/20 11:57 Sulfa (Sulfonamide Allergy Unknown Unknown Verified 05/27/20 11:57 Antibiotics) hydrocodone AdvReac Severe Chest pain Verified 05/27/20 11:57 /SOB oxycodone HCl * AdvReac Severe Chest Verified 05/27/20 11:57 [From OxyContin] Pain/SOB - Social History Does the pt smoke?: No Smoking Status: Never smoker Does the pt drink ETOH?: Yes Does the pt have substance abuse?: No - POLST Patient has POLST: No PD ED PE EXPANDED - General General: Alert, No acute distress, Well developed/nourished - HEENT HEENT: Atraumatic, PERRL, EOMI - Eyes Eyes: Visual acuity - see nn, PERRL - Neck Neck: Supple w/out meningeal sx, No tenderness - Cardiac Cardiac: Regular Rate, Regular Rhythm, Radial strong equal, Cap refill < 2 sec. No: Murmur Present - Respiratory Respiratory: Clear to ausultation samuel. No: Distress, Labored - Abdomen Abdomen: Normal Bowel sounds. No: Tender to palpation - Neuro Neuro: Alert and Oriented X 3, CNII-XII intact, Normal gait, Normal finger nose, Normal speech - GCS Eye Opening: Spontaneous Motor: Obeys Commands Verbal: Oriented Total: 15 Results - Vitals Vitals: Vital Signs - 24 hr 05/27/20 11:51 Temperature 37.1 C Heart Rate 99 Respiratory 16 Rate Blood Pressure 131/86 H O2 Saturation 98 Oxygen O2 Source Room air - EKG (time done) 1455 Rate: Rate (enter#) (75) Rhythm: NSR [place]: Normal Intervals: Prolonged QT QRS: LVH Ischemia: Non specific changes Compare to prior EKG: Unchanged from prior EKG Computer interpretation: Agree with computer - Labs Labs: Laboratory Tests 05/27/20 05/27/20 05/27/20 13:01 13:01 15:03 WBC 9.8 RBC 5.09 Hgb 15.7 Hct 46.0 MCV 90.4 MCH 30.8 MCHC 34.1 RDW 12.8 Plt Count 310 MPV 8.0 Neut # (Auto) 5.4 Lymph # (Auto) 3.1 [place] # (Auto) 0.8 Eos # (Auto) 0.4 Baso # (Auto) 0.1 Absolute Nucleated RBC 0.00 Nucleated RBC % 0.0 Sodium 137 Potassium 3.1 L Chloride 101 Carbon Dioxide 23 Anion Gap 13.0 BUN 19 Creatinine 1.1 H Estimated GFR (MDRD) 50 L Glucose 119 H Calcium 9.4 Total Bilirubin 0.7 AST 35 ALT 42 Alkaline Phosphatase 68 Total Protein 7.6 Albumin 4.1 Globulin 3.5 Albumin/Globulin Ratio 1.2 Lipase 62 H Urine Color Urine Clarity Urine pH Ur Specific [place] Urine Protein Urine Glucose (UA) Urine Ketones Urine Occult Blood Urine Nitrite Urine Bilirubin Urine Urobilinogen Ur Leukocyte Esterase Urine RBC Urine WBC Ur Squamous Epith Cells Urine Bacteria Ur Microscopic Review Urine Culture Comments Influenza A (Rapid) Negative Influenza B (Rapid) Negative 05/27/20 15:29 WBC RBC Hgb Hct MCV MCH MCHC RDW Plt Count MPV Neut # (Auto) Lymph # (Auto) [place] # (Auto) Eos # (Auto) Baso # (Auto) Absolute Nucleated RBC Nucleated RBC % Sodium Potassium Chloride Carbon Dioxide Anion Gap BUN Creatinine Estimated GFR (MDRD) Glucose Calcium Total Bilirubin AST ALT Alkaline Phosphatase Total Protein Albumin Globulin Albumin/Globulin Ratio Lipase Urine Color YELLOW Urine Clarity CLEAR Urine pH 6.0 Ur Specific [place] 1.025 Urine Protein NEGATIVE Urine Glucose (UA) NEGATIVE Urine Ketones NEGATIVE Urine Occult Blood TRACE-INTA Urine Nitrite NEGATIVE Urine Bilirubin NEGATIVE Urine Urobilinogen 0.2 (NORMAL) Ur Leukocyte Esterase MODERATE H Urine RBC 0-5 Urine WBC 11-25 H Ur Squamous Epith Cells FEW Squamous Urine Bacteria Moderate H Ur Microscopic Review INDICATED Urine Culture Comments INDICATED Influenza A (Rapid) Influenza B (Rapid) - Rads (name of study) CXR Radiology: Final report received (Small linear opacity of the left lower lung likely representing scarring versus subsegmental atelectasis. Otherwise no acute cardiopulmonary abnormalities) PD MEDICAL DECISION MAKING - ED course Complexity details: reviewed results, re-evaluated patient, considered differential, d/w patient ED course: 65-year-old female presents the emergency department with a litany of concerns that include fatigue myalgias acid reflux palpitations. She does have a history of ulcerative colitis and does have an ostomy in place. She also has a history of polymyalgias and did complete a course of steroids a number of weeks ago. Today on ED evaluation she had clear cardiopulmonary exam. Chest x-ray showed no focal opacities. Her EKG was sinus without any ischemic changes. Her QTC was mildly prolonged greater than 450 but her potassium was a little low at 3.1. This was repleted today in the emergency department. Covid screening is pending her influenza is negative. Her urine is suggestive of infection; keflex ordered. Patient has follow-up scheduled with her primary care provider in the next week. Overall she appears remarkably well with no significant vital sign abnormalities or fevers. Emergent return precautions were discussed for failure of symptoms to improve Departure - Departure Clinical Impression: Hypokalemia, Palpitations, Cystitis Fatigue Qualifiers: Fatigue type: unspecified Qualified Code(s): R53.83 - Other fatigue Condition: Stable Record reviewed to determine appropriate education?: Yes Prescriptions: Cephalexin [Keflex] 500 mg PO BID #14 capsule Comments: Jenelle today your EKG and chest x-ray look pretty normal. You did have a mildly low potassium of 3.1. We have given you 40 mEq of potassium here in the emergency department. I would like you to schedule follow-up with your primary care doctor to have your electrolytes repeat Keith it next week when you see them. Your influenza testing is negative. Your COVID screening will take 2 to 3 days to come back we will only notify you if the Covid test is positive. Today your urine shows signs of an infection. a culture is pending, but I would like to start you on Keflex to treat the infection. Please fill the rx fo rthe antibiotics and begin taking as directed Return to the emergency department if you develop chest pain, have leg swelling, suddenly severe abdominal pain with high fevers and vomiting.
[2020-05-27] MEDS ORDERED: POTASSIUM CHLORIDE 20 MEQ TABLET PO STA (15:18)
[2020-05-27 15:40] LABS: BILIRUBIN,URINE NEGATIVE (NEGATIVE); CLARITY,URINE CLEAR (CLEAR); GLUCOSE, URINE (UA) NEGATIVE (NEGATIVE); KETONES,URINE (UA) NEGATIVE (NEGATIVE); LEUKOCYTE ESTERASE, URINE MODERATE (NEGATIVE); NITRITE,URINE NEGATIVE (NEGATIVE); OCCULT BLOOD,URINE TRACE-INTA (NEGATIVE); PROTEIN,URINE NEGATIVE (NEGATIVE); UROBILINOGEN,URINE 0.2 (NORMAL) E.U./dL (NORMAL)
[2020-05-27 15:53] LABS: BACTERIA,URINE Moderate /HPF (None Seen); RBC,URINE 0-5 /HPF (0-5); SQUAMOUS EPITHELIAL CELL,UR FEW Squamous (<= Few)
[2020-05-27 18:10] VITALS: BP 132/68
== END 2020-05-27 16:12 | disposition home or self-care (01) ==
LOC: ED 11:45
DX: E87.6 Hypokalemia (principal); R00.2 Palpitations; I45.81 Long QT syndrome; N30.90 Cystitis, unspecified without hematuria; R53.83 Other fatigue; Z20.828 Contact with and (suspected) exposure to other viral communicable diseases; K21.9 Gastro-esophageal reflux disease without esophagitis; N18.9 Chronic kidney disease, unspecified; Z87.19 Personal history of other diseases of the digestive system; Z93.3 Colostomy status
CPT/HCPCS: 36415; 71045; 80053; 81001; 83690; 85025; 87086; 87275; 87276; 93005; 99284; A9270; U0004; 81003

== ENCOUNTER 2020-06-01 08:00 | Outpatient (CLI) | payer MEDICARE ==
[2020-06-01 17:48] LABS: BILIRUBIN,URINE NEGATIVE (NEGATIVE); GLUCOSE, URINE (UA) NEGATIVE (NEGATIVE); KETONES,URINE (UA) NEGATIVE (NEGATIVE); LEUKOCYTE ESTERASE, URINE TRACE (NEGATIVE); NITRITE,URINE NEGATIVE (NEGATIVE); OCCULT BLOOD,URINE NEGATIVE (NEGATIVE); PROTEIN,URINE NEGATIVE (NEGATIVE); UROBILINOGEN,URINE 0.2 (NORMAL) E.U./dL (NORMAL)
[2020-06-01 17:59] LABS: CLARITY,URINE CLEAR (CLEAR)
[2020-06-01 18:05] LABS: ALBUMIN 4.3 g/dL (3.2-5.5); ALBUMIN/GLOBULIN RATIO 1.2 (1.0-2.2); BILIRUBIN,TOTAL 0.6 mg/dL (0.2-1.0); CALCIUM 9.9 mg/dL (8.5-10.3); CREATININE 1.1 mg/dL (0.4-1.0); TOTAL PROTEIN 7.9 g/dL (6.7-8.2)
[2020-06-01 18:20] LABS: BACTERIA,URINE Rare /HPF (None Seen); RBC,URINE None Seen /HPF (0-5); SQUAMOUS EPITHELIAL CELL,UR FEW Squamous (<= Few)
== END 2020-06-01 23:59 | disposition home or self-care (01) ==
LOC: LAB.WCP 08:00
PROVIDERS: ATTEND Nurse Practitioner
DX: E87.6 Hypokalemia (principal); N30.00 Acute cystitis without hematuria
CPT/HCPCS: 36415; 80053; 81001; 87086

== ENCOUNTER 2020-06-04 12:12 | Outpatient (CLI) | payer MEDICARE | END 2020-06-04 12:13 | disposition home or self-care (01) | LOC: NS 12:12 | PROVIDERS: ATTEND Family Medicine | DX: Z71.3 Dietary counseling and surveillance (principal); N18.30 Chronic kidney disease, stage 3 unspecified; K51.90 Ulcerative colitis, unspecified, without complications | CPT/HCPCS: 97803 ==

== ENCOUNTER 2020-06-04 12:14 | Outpatient (CLI) | payer MEDICARE ==
[2020-06-04 15:33] LABS: RHEUMATOID FACTOR NEGATIVE (Negative)
[2020-06-08 09:11] LABS: ANA SCREEN NEGATIVE (NEGATIVE)
== END 2020-06-04 12:15 | disposition home or self-care (01) ==
LOC: LAB 12:14
PROVIDERS: ATTEND Nurse Practitioner
DX: M35.3 Polymyalgia rheumatica (principal)
CPT/HCPCS: 36415; 85651; 86021; 86038; 86140; 86430

== ENCOUNTER 2020-06-09 15:00 | Outpatient (CLI) | payer MEDICARE ==
[2020-06-09 15:58] LABS: BILIRUBIN,URINE NEGATIVE (NEGATIVE); GLUCOSE, URINE (UA) NEGATIVE (NEGATIVE); KETONES,URINE (UA) NEGATIVE (NEGATIVE); LEUKOCYTE ESTERASE, URINE NEGATIVE (NEGATIVE); NITRITE,URINE NEGATIVE (NEGATIVE); OCCULT BLOOD,URINE TRACE-INTA (NEGATIVE); PROTEIN,URINE NEGATIVE (NEGATIVE); UROBILINOGEN,URINE 0.2 (NORMAL) E.U./dL (NORMAL)
[2020-06-09 16:00] LABS: CLARITY,URINE CLEAR (CLEAR)
[2020-06-09 16:21] LABS: BACTERIA,URINE Rare /HPF (None Seen); RBC,URINE 0-5 /HPF (0-5); SQUAMOUS EPITHELIAL CELL,UR FEW Squamous (<= Few)
== END 2020-06-09 23:59 | disposition home or self-care (01) ==
LOC: LAB 15:00
PROVIDERS: ATTEND Nurse Practitioner
DX: N30.00 Acute cystitis without hematuria (principal)
CPT/HCPCS: 81001; 87086

== ENCOUNTER 2020-07-09 08:41 | Outpatient (CLI) | payer MEDICARE ==
[2020-07-09 09:21] LABS: ALBUMIN 3.5 g/dL (3.2-5.5); ALBUMIN/GLOBULIN RATIO 1.1 (1.0-2.2); BILIRUBIN,TOTAL 0.6 mg/dL (0.2-1.0); BILIRUBIN,URINE NEGATIVE (NEGATIVE); CALCIUM 9.2 mg/dL (8.5-10.3); GLUCOSE, URINE (UA) NEGATIVE (NEGATIVE); KETONES,URINE (UA) NEGATIVE (NEGATIVE); LEUKOCYTE ESTERASE, URINE SMALL (NEGATIVE); NITRITE,URINE NEGATIVE (NEGATIVE); OCCULT BLOOD,URINE NEGATIVE (NEGATIVE); PROTEIN,URINE NEGATIVE (NEGATIVE); TOTAL PROTEIN 6.7 g/dL (6.7-8.2); UROBILINOGEN,URINE 0.2 (NORMAL) E.U./dL (NORMAL)
[2020-07-09 09:31] LABS: BACTERIA,URINE Few /HPF (None Seen); CLARITY,URINE CLEAR (CLEAR); SQUAMOUS EPITHELIAL CELL,UR MOD Squamous (<= Few)
[2020-07-09 09:40] LABS: THYROID STIMULATING HORMONE 0.42 uIU/mL (0.34-5.60)
[2020-07-09 09:42] LABS: FREE T3 3.39 pg/mL (2.5-3.9); FREE T4 (FREE THYROXINE) 0.91 ng/dL (0.58-1.64)
== END 2020-07-09 08:42 | disposition home or self-care (01) ==
LOC: LAB 08:41
PROVIDERS: ATTEND Nurse Practitioner
DX: E87.6 Hypokalemia (principal); N30.00 Acute cystitis without hematuria; F32.9 Major depressive disorder, single episode, unspecified; K51.90 Ulcerative colitis, unspecified, without complications; K76.0 Fatty (change of) liver, not elsewhere classified; R53.83 Other fatigue; E03.9 Hypothyroidism, unspecified
CPT/HCPCS: 36415; 80053; 81001; 82306; 82607; 84439; 84443; 84481; 87086

== ENCOUNTER 2020-07-12 14:30 | Outpatient (CLI) | payer MEDICARE | END 2020-07-12 14:31 | disposition home or self-care (01) | LOC: LAB 14:30 | PROVIDERS: ATTEND Internal Medicine | DX: Z01.812 Encounter for preprocedural laboratory examination (principal); Z20.828 Contact with and (suspected) exposure to other viral communicable diseases ==

== ENCOUNTER 2020-10-21 08:00 | Outpatient (CLI) | payer MEDICARE ==
[2020-10-21 19:45] LABS: RHEUMATOID FACTOR NEGATIVE (Negative)
[2020-10-23 12:41] LABS: ANA SCREEN NEGATIVE (NEGATIVE)
== END 2020-10-21 23:59 | disposition home or self-care (01) ==
LOC: LAB.WCP 08:00
PROVIDERS: ATTEND Internal Medicine Rheumatology
DX: M35.3 Polymyalgia rheumatica (principal)
CPT/HCPCS: 36415; 85651; 86038; 86140; 86430

== ENCOUNTER 2021-03-12 08:00 | Outpatient (CLI) | payer MEDICARE | END 2021-03-12 23:59 | disposition home or self-care (01) | LOC: LAB.N 08:00 | PROVIDERS: ATTEND Nurse Practitioner | DX: R39.9 Unspecified symptoms and signs involving the genitourinary system (principal) ==

== ENCOUNTER 2021-03-12 11:53 | Outpatient (CLI) | payer MEDICARE ==
[2021-03-12 18:16] LABS: BASOPHILS # (AUTO) 0.1 10^3/uL (0.0-0.1); BASOPHILS % (AUTO) 0.6 %; EOSINOPHILS # (AUTO) 0.3 10^3/uL (0.0-0.7); EOSINOPHILS % (AUTO) 3.1 %; HCT - HEMATOCRIT 49.4 % (37.0-47.0); HGB - HEMOGLOBIN 15.9 g/dL (12.0-16.0); LYMPHOCYTES # (AUTO) 2.6 10^3/uL (1.5-3.5); LYMPHOCYTES % (AUTO) 29.6 %; MEAN CORPUSCULAR HEMOGLOBIN 30.4 pg (27.0-31.0); MEAN CORPUSCULAR HGB CONC 32.2 g/dL (32.0-36.0); MEAN CORPUSCULAR VOLUME 94.5 fL (81.0-99.0); MEAN PLATELET VOLUME 8.4 fL (7.9-10.8); MONOCYTES # (AUTO) 0.6 10^3/uL (0.0-1.0); MONOCYTES % (AUTO) 6.7 %; NEUTROPHILS # (AUTO) 5.2 10^3/uL (1.5-6.6); NEUTROPHILS % (AUTO) 59.8 %; PLT - PLATELET COUNT 318 10^3/uL (130-450); RED BLOOD COUNT 5.23 10^6/uL (4.20-5.40); RED CELL DISTRIBUTION WIDTH 12.8 % (12.0-15.0); WHITE BLOOD COUNT 8.8 x10^3/uL (4.8-10.8)
[2021-03-12 18:29] LABS: ALBUMIN 4.2 g/dL (3.2-5.5); ALBUMIN/GLOBULIN RATIO 1.2 (1.0-2.2); BILIRUBIN,TOTAL 0.4 mg/dL (0.2-1.0); CALCIUM 9.4 mg/dL (8.5-10.3); CREATININE 1.1 mg/dL (0.4-1.0); POTASSIUM 4.1 mmol/L (3.5-5.0); TOTAL PROTEIN 7.8 g/dL (6.7-8.2)
== END 2021-03-12 23:59 | disposition home or self-care (01) ==
LOC: LAB.N 11:53
PROVIDERS: ATTEND Nurse Practitioner
DX: M62.81 Muscle weakness (generalized) (principal); R39.9 Unspecified symptoms and signs involving the genitourinary system; K76.0 Fatty (change of) liver, not elsewhere classified; Z20.822 Contact with and (suspected) exposure to COVID-19
CPT/HCPCS: 36415; 80053; 85025; 87086; U0004

== ENCOUNTER 2021-03-18 11:47 | Outpatient (CLI) | payer MEDICARE ==
--- NOTE | 2021-03-18 14:34 | XRAY Report ---
PROCEDURE: Lumbar Spine 2 View INDICATIONS: LOW BACK PAIN TECHNIQUE: 3 views of the lumbar spine were acquired. COMPARISON: Lumbar x-ray 05/23/2019 FINDINGS: Bones: 5 [id number] vertebrae are present. Grade 1 retrolisthesis measuring 5 mm is present of L2 on L3, unchanged. Grade 1 anterolisthesis measuring 10 mm is present of L4 on L5, compared to 8 m m in 2019.. Severe disc space narrowing is present at L4-5. Pars defect is also present at this level . Moderate disc space narrowing is present at L5-S1. Moderate foraminal narrowing is present at L4-5. Mild compression deformity at L2 is present measuring approximately 27%. This is unchanged compared to 2019. No vertebral body compression fractures. No suspicious bony lesions. Soft tissues: Overlying bowel gas pattern is normal. No suspicious soft tissue calcifications. IMPRESSION: 1. Mild increased prominence of grade 1 anterolisthesis of L4 on L5 with pars defect. 2. Multilevel degenerative changes as above. Reviewed by: Marcie Panchal MD on 03/18/2021 2:33 PM PDT Approved by: Marcie Panchal MD on 03/18/2021 2:33 PM PDT Station ID: [id number]
== END 2021-03-18 11:48 | disposition home or self-care (01) ==
LOC: DI 11:47
PROVIDERS: ATTEND Family Medicine
DX: M43.16 Spondylolisthesis, lumbar region (principal); M51.36 Other intervertebral disc degeneration, lumbar region; M48.061 Spinal stenosis, lumbar region without neurogenic claudication; M51.37 Other intervertebral disc degeneration, lumbosacral region; M48.07 Spinal stenosis, lumbosacral region; M54.5 Low back pain; M35.3 Polymyalgia rheumatica
CPT/HCPCS: 36415; 80053; 85651; 86140; 86317; 86704; 86709; 86812

== ENCOUNTER 2021-03-18 12:17 | Outpatient (CLI) | payer MEDICARE ==
[2021-03-18 13:10] LABS: ALBUMIN 4.2 g/dL (3.2-5.5); ALBUMIN/GLOBULIN RATIO 1.1 (1.0-2.2); ALKALINE PHOSPHATASE 82 IU/L (42-121); ALT ALANINE AMINOTRANSFERASE 63 IU/L (10-60); AST ASPARTATE AMINOTRANSFERASE 49 IU/L (10-42); BILIRUBIN,TOTAL 0.9 mg/dL (0.2-1.0); BUN - BLOOD UREA NITROGEN 17 mg/dL (6-20); CALCIUM 9.6 mg/dL (8.5-10.3); CARBON DIOXIDE - CO2 20 mmol/L (21-32); CHLORIDE 107 mmol/L (101-111); CREATININE 1.3 mg/dL (0.4-1.0); GFR - MDRD 41 (>89); GLUCOSE 100 mg/dL (70-100); SODIUM 136 mmol/L (135-145); TOTAL PROTEIN 8.2 g/dL (6.7-8.2)
[2021-03-18 13:43] LABS: CRP - C-REACTIVE PROTEIN < 1.0 mg/dL (0-1.0)
== END 2021-03-18 12:18 | disposition home or self-care (01) ==
LOC: LAB 12:17
PROVIDERS: ATTEND Family Medicine
DX: M54.5 Low back pain (principal); M35.3 Polymyalgia rheumatica
CPT/HCPCS: 36415; 80053; 85651; 86140; 86317; 86704; 86709; 86812

== ENCOUNTER 2021-03-31 14:08 | Outpatient (CLI) | payer MEDICARE ==
--- NOTE | 2021-03-31 17:53 | MRI Report ---
PROCEDURE: Lumbar Spine W/O INDICATIONS: LUMBAR RADICULOPATHY TECHNIQUE: Noncontrast sagittal T1 spin echo and T2 fast echo, sagittal STIR, axial T1 and T2 fast spin echo thr ough the lumbar spine. In cases with scoliosis, additional coronal T2 fast spin echo may be performe d. COMPARISON: Correlation is made with prior lumbar plain film, 03/18/2021. Correlation is made with pr ior abdomen and pelvis CT, 12/02/2019 FINDINGS: Image quality: Diagnostic. Alignment and Curvature: There is mild retrolisthesis seen at the L2-L3 level. There is mild grade 1 anterolisthesis seen at the L4-L5 level. Pars defects are present, yet much better seen on the prior CT. Bone Marrow: Marrow is of normal overall signal. No acute vertebral body compression fractures. Ch ronic anterior wedge deformity can be seen of the L2 level, with approximately 30% loss of height ant eriorly. Spinal Cord: Conus medullaris terminates at the L1 level. Visualized cord demonstrates normal signa l and size. Paraspinous Soft Tissues: No paravertebral masses. T12-L1: Normal in appearance. L1-L2: No significant abnormality is seen. L2-L3: The disc height is well-preserved. There is loss of disc signal seen. No significant sukumar ral foraminal or central canal narrowing can be seen. L3-L4: The disc height is well-preserved. There is loss of disc signal seen. Mild to moderate facet hypertrophy is seen. No significant neural foraminal or central canal narrowing can be seen. L4-L5: At least moderate loss of disc height and disc signal can be seen. Moderate disc bulge is se en, with a mild central disc protrusion/disc uncovering. Mild to moderate facet hypertrophy is seen. There is moderate right-sided and no significant left-sided neuroforaminal narrowing seen. Minimal ce ntral canal narrowing is seen. L5-S1: The disc height is well-preserved. There is loss of disc signal seen. Mild disc bulge is se en. Mild to moderate facet hypertrophy is seen. There is mild to moderate left-sided and no right-s ided neuroforaminal narrowing seen. Mild central canal narrowing is seen. IMPRESSION: Lumbar spine degenerative changes are seen, which are worst at the L4-L5 level. Reviewed by: Isidro Jacob MD on 03/31/2021 4:51 PM AKDT Approved by: Isidro Jacob MD on 03/31/2021 4:51 PM [id number] Station ID: [id number]
== END 2021-03-31 14:09 | disposition home or self-care (01) ==
LOC: DI 14:08
PROVIDERS: ATTEND Family Medicine
DX: M43.16 Spondylolisthesis, lumbar region (principal); M47.26 Other spondylosis with radiculopathy, lumbar region; M51.16 Intervertebral disc disorders with radiculopathy, lumbar region; M48.061 Spinal stenosis, lumbar region without neurogenic claudication

== ENCOUNTER 2021-06-24 14:09 | Outpatient (CLI) | payer MEDICARE ==
--- NOTE | 2021-06-25 10:19 | Mammography Report ---
BILATERAL DIGITAL SCREENING MAMMOGRAM 3D/2D: 06/24/2021 CLINICAL: Routine screening. Comparison is made to exams dated: 09/05/2017 mammogram, 07/23/2014 mammogram, 05/10/2013 mammogram, and 03/08/2012 mammogram - [facility]. There are scattered fibroglandular elements in both breasts. No significant masses, calcifications, or other findings are seen in either breast. There has been no significant interval change. IMPRESSION: NEGATIVE There is no mammographic evidence of malignancy. A 1 year screening mammogram is recommended. This exam was interpreted at Station ID: [id number]. NOTE: For mammograms, a report in lay terms will be sent to the patient. Approximately 15% of breast malignancies will not be visualized mammographically. In the management of a palpable breast mass, a negative mammogram must not discourage biopsy of a clinically suspicious lesion. Electronically Signed By: Rebel Carlos M.D. ddp/penrad:06/24/2021 15:37:25 ACR BI-RADS Category 1: Negative 3341F PARENCHYMAL PATTERN: (A) - The breast(s) demonstrate(s) scattered fibroglandular densities. BI-RADS CATEGORY: (1) - 1 RECOMMENDATION: (ANNUAL) - Recommend routine annual screening mammography. [id number] 1 year screening LATERALITY: (B)
== END 2021-06-24 14:10 | disposition home or self-care (01) ==
LOC: DI 14:09
DX: Z12.31 Encounter for screening mammogram for malignant neoplasm of breast (principal)

== ENCOUNTER 2021-06-30 08:26 | Outpatient (CLI) | payer MEDICARE ==
[2021-06-30 09:03] LABS: BASOPHILS % (AUTO) 0.4 %; EOSINOPHILS # (AUTO) 0.2 10^3/uL (0.0-0.7); EOSINOPHILS % (AUTO) 2.4 %; HCT - HEMATOCRIT 46.6 % (37.0-47.0); HGB - HEMOGLOBIN 15.7 g/dL (12.0-16.0); LYMPHOCYTES # (AUTO) 3.7 10^3/uL (1.5-3.5); LYMPHOCYTES % (AUTO) 41.3 %; MEAN CORPUSCULAR HEMOGLOBIN 30.8 pg (27.0-31.0); MEAN CORPUSCULAR HGB CONC 33.7 g/dL (32.0-36.0); MEAN CORPUSCULAR VOLUME 91.4 fL (81.0-99.0); MEAN PLATELET VOLUME 8.2 fL (7.9-10.8); MONOCYTES # (AUTO) 0.7 10^3/uL (0.0-1.0); MONOCYTES % (AUTO) 7.2 %; NEUTROPHILS # (AUTO) 4.3 10^3/uL (1.5-6.6); NEUTROPHILS % (AUTO) 48.3 %; PLT - PLATELET COUNT 283 10^3/uL (130-450); RED CELL DISTRIBUTION WIDTH 13.3 % (12.0-15.0)
[2021-06-30 09:21] LABS: ALBUMIN 3.7 g/dL (3.2-5.5); ALBUMIN/GLOBULIN RATIO 1.1 (1.0-2.2); ALKALINE PHOSPHATASE 69 IU/L (42-121); ALT ALANINE AMINOTRANSFERASE 30 IU/L (10-60); AST ASPARTATE AMINOTRANSFERASE 24 IU/L (10-42); BILIRUBIN,TOTAL 0.6 mg/dL (0.2-1.0); BUN - BLOOD UREA NITROGEN 13 mg/dL (6-20); CALCIUM 9.2 mg/dL (8.5-10.3); CARBON DIOXIDE - CO2 19 mmol/L (21-32); CHLORIDE 108 mmol/L (101-111); CHOL/HDL RATIO 4.2 (<4.4); CHOLESTEROL 272 mg/dL; CREATININE 1.1 mg/dL (0.4-1.0); GFR - MDRD 50 (>89); GLUCOSE 93 mg/dL (70-100); HDL CHOLESTEROL 65 mg/dL; LDL CHOLESTEROL,CALCULATED 171 mg/dL; LDL/HDL RATIO 2.6 (<4.4); POTASSIUM 3.8 mmol/L (3.5-5.0); SODIUM 139 mmol/L (135-145); TRIGLYCERIDES 182 mg/dL; VLDL CHOLESTEROL 36 mg/dL
[2021-06-30 09:29] LABS: THYROID STIMULATING HORMONE 6.36 uIU/mL (0.34-5.60)
[2021-06-30 12:36] LABS: FREE T4 (FREE THYROXINE) 0.72 ng/dL (0.58-1.64)
== END 2021-06-30 08:27 | disposition home or self-care (01) ==
LOC: LAB 08:26
PROVIDERS: ATTEND Physician Assistant Medical
DX: Z00.00 Encounter for general adult medical examination without abnormal findings (principal); E87.6 Hypokalemia; R53.83 Other fatigue; E03.9 Hypothyroidism, unspecified; K51.90 Ulcerative colitis, unspecified, without complications
CPT/HCPCS: 36415; 80053; 80061; 82607; 83721; 84439; 84443; 85025

== ENCOUNTER 2022-02-13 11:15 | Outpatient (CLI) | payer MEDICARE, MEDICAID ==
[2022-02-13 11:52] LABS: ALBUMIN 3.9 g/dL (3.2-5.5); ALKALINE PHOSPHATASE 73 IU/L (42-121); ALT ALANINE AMINOTRANSFERASE 42 IU/L (10-60); AST ASPARTATE AMINOTRANSFERASE 32 IU/L (10-42); BILIRUBIN,TOTAL 0.6 mg/dL (0.2-1.0); BUN - BLOOD UREA NITROGEN 15 mg/dL (6-20); CALCIUM 9.6 mg/dL (8.5-10.3); CARBON DIOXIDE - CO2 19 mmol/L (21-32); CHLORIDE 107 mmol/L (101-111); CHOL/HDL RATIO 4.4 (<4.4); CHOLESTEROL 311 mg/dL; CREATININE 1.1 mg/dL (0.4-1.0); GFR - MDRD 50 (>89); GLUCOSE 109 mg/dL (70-100); HDL CHOLESTEROL 71 mg/dL; LDL CHOLESTEROL,CALCULATED 215 mg/dL; POTASSIUM 4.6 mmol/L (3.5-5.0); SODIUM 136 mmol/L (135-145); TOTAL PROTEIN 7.9 g/dL (6.7-8.2); TRIGLYCERIDES 126 mg/dL; VLDL CHOLESTEROL 25 mg/dL
== END 2022-02-13 11:16 | disposition home or self-care (01) ==
LOC: LAB 11:15
PROVIDERS: ATTEND Physician Assistant Medical
DX: E78.5 Hyperlipidemia, unspecified (principal)
CPT/HCPCS: 36415; 80053; 80061; 83721

== ENCOUNTER 2022-04-11 10:54 | Outpatient (CLI) | payer MEDICARE, MEDICAID ==
[2022-04-11] MEDS ORDERED: DIATRIZOATE MEGLU/DIATRIZO SOD 30 ML BOTTLE PO ONE ×2 (11:13→18:35)
[2022-04-11 11:25] LABS: CREATININE 1.2 mg/dL (0.4-1.0)
--- NOTE | 2022-04-11 14:49 | CT Report ---
PROCEDURE: Abdomen/Pelvis W INDICATIONS: PAIN AT OSTOMY SITE CONTRAST: IV CONTRAST: Optiray 320 ml: 100 PO CONTRAST: Optiray 320 ml50 TECHNIQUE: After the administration of oral and intravenous contrast, 5 mm thick sections acquired from the diap hragms to the symphysis. 5 mm thick coronal and sagittal reformats were acquired. For radiation dos e reduction, the following was used: automated exposure control, adjustment of mA and/or kV accordin g to patient size. COMPARISON: CT abdomen and pelvis 12/02/2019. FINDINGS: Image quality: Good. ABDOMEN: Lung bases: No pleural effusion. Heart size is normal. Solid organs: Liver is normal in size. Hepatic steatosis. Gallbladder is not distended. Filled with gallstones. Biliary system is non dilated. Pancreas enhances normally. No adrenal nodules. Kidne ys demonstrate normal size and enhancement, without hydronephrosis. Peritoneum and bowel: Post colectomy. Right lower quadrant ileostomy. Contrast is seen transversing t he ileostomy into the ostomy bag. Small peristomal hernia is similar to 2019. No fluid collection. No small bowel obstruction. Presacral clips. Nodes and vessels: No retroperitoneal or mesenteric adenopathy by size criteria. Aorta and inferior vena cava are normal in size. PELVIS: Genitourinary: Bladder is unremarkable. Anteverted uterus. Small calcified fibroid suspected. Miscellaneous: No inguinal hernias or adenopathy. Bones: No suspicious bony lesions. Mild height loss at L2. Anterolisthesis of L4 on L5 measuring 0.6 cm. IMPRESSION: 1. Small right lower quadrant peristomal hernia is similar to 2019. 2. Post colectomy with right lower quadrant ileostomy. 3. No small bowel obstruction. No free fluid. No pneumoperitoneum. 4. Gallbladder is filled with gallstones. 5. Hepatic steatosis. Reviewed by: Alejandro Tomas MD on 04/11/2022 2:48 PM PDT Approved by: Alejandro Tomas MD on 04/11/2022 2:48 PM PDT Station ID: [id number]
== END 2022-04-11 10:55 | disposition home or self-care (01) ==
LOC: LAB 10:54
PROVIDERS: ATTEND Surgery
DX: T85.848A Pain due to other internal prosthetic devices, implants and grafts, initial encounter (principal); K43.5 Parastomal hernia without obstruction or gangrene; Z90.49 Acquired absence of other specified parts of digestive tract; K80.20 Calculus of gallbladder without cholecystitis without obstruction; K76.0 Fatty (change of) liver, not elsewhere classified
CPT/HCPCS: 36415; 74177; 82565; Q9963; Q9967

== ENCOUNTER 2022-05-26 09:12 | Outpatient (CLI) | payer MEDICARE ==
[2022-05-26 09:58] LABS: ALBUMIN 3.9 g/dL (3.2-5.5); ALBUMIN/GLOBULIN RATIO 1.1 (1.0-2.2); ALKALINE PHOSPHATASE 72 IU/L (42-121); ALT ALANINE AMINOTRANSFERASE 36 IU/L (10-60); AST ASPARTATE AMINOTRANSFERASE 31 IU/L (10-42); BILIRUBIN,TOTAL 0.6 mg/dL (0.2-1.0); BUN - BLOOD UREA NITROGEN 13 mg/dL (6-20); CALCIUM 9.6 mg/dL (8.5-10.3); CARBON DIOXIDE - CO2 22 mmol/L (21-32); CHLORIDE 108 mmol/L (101-111); CHOL/HDL RATIO 4.1 (<4.4); CHOLESTEROL 274 mg/dL; CREATININE 1.2 mg/dL (0.4-1.0); GFR - MDRD 45 (>89); GLUCOSE 101 mg/dL (70-100); HDL CHOLESTEROL 67 mg/dL; LDL CHOLESTEROL,CALCULATED 184 mg/dL; LDL/HDL RATIO 2.7 (<4.4); POTASSIUM 4.1 mmol/L (3.5-5.0); SODIUM 139 mmol/L (135-145); TOTAL PROTEIN 7.3 g/dL (6.7-8.2); TRIGLYCERIDES 116 mg/dL; VLDL CHOLESTEROL 23 mg/dL
[2022-05-26 10:08] LABS: THYROID STIMULATING HORMONE 3.87 uIU/mL (0.34-5.60)
[2022-05-26 10:18] LABS: CRP - C-REACTIVE PROTEIN < 1.0 mg/dL (0-1.0)
== END 2022-05-26 09:13 | disposition home or self-care (01) ==
LOC: LAB 09:12
PROVIDERS: ATTEND Physician Assistant Medical
DX: E03.9 Hypothyroidism, unspecified (principal); M35.3 Polymyalgia rheumatica; E78.5 Hyperlipidemia, unspecified
CPT/HCPCS: 36415; 80053; 80061; 83721; 84443; 85651; 86140

== ENCOUNTER 2022-08-03 11:48 | Outpatient (CLI) | payer MEDICARE ==
--- NOTE | 2022-08-03 17:20 | XRAY Report ---
PROCEDURE: Pelvis 1 View INDICATIONS: LOWER BACK PAIN TECHNIQUE: 1 view(s) of the pelvis acquired. COMPARISON: X-ray pelvis, 05/23/2019. FINDINGS: Bones: No fractures or dislocations. No suspicious bony lesions. Mild hip joint and SI joint degen eration bilaterally. Moderate degenerative disc and facet disease at L4-L5. Soft tissues: Visualized bowel gas pattern is normal. No suspicious soft tissue calcifications. Mu ltiple surgical clips in pelvis. IMPRESSION: 1. Mild degenerative joint disease. 2. Moderate degenerative disc and facet disease in lower lumbar spine. Reviewed by: Mildred Sandy MD on 08/03/2022 5:19 PM PST Approved by: Mildred Sandy MD on 08/03/2022 5:19 PM PST Station ID: [id number]
--- NOTE | 2022-08-04 08:46 | XRAY Report ---
PROCEDURE: Lumbar Spine 2 View INDICATIONS: LOWER BACK PAIN TECHNIQUE: 2 views of the lumbar spine were acquired. COMPARISON: MRI lumbar spine, 08/03/2022. X-ray lumbar spine, 03/18/2021 FINDINGS: Bones: 5 [id number] vertebrae are present. Mild levoscoliosis. There is grade 1 anterolisthesis of L4 on L5 secondary to pars defects. Mild chronic anterior wedge deformity of L2 appears unchanged . No suspicious bony lesions. Degenerative disc disease, lzoqilkq-jp-uogmym at L5 L5, and mild at o ther levels. [place]'s disease at L3-L4 and L34-L5. Soft tissues: Overlying bowel gas pattern is normal. No suspicious soft tissue calcifications. A ca lcified density in the right upper quadrant is noted compatible with gallstones. IMPRESSION: 1. Jaadkfek-ld-jkidrg degenerative disease at L4-L5. 2. Moderate levoscoliosis. 3. Grade 1 anterolisthesis of L4 on L5 secondary to pars defects. 4. Mild chronic compression fracture of L2. 5. [place]'s disease. 6. Cholelithiasis. Reviewed by: Mildred Sandy MD on 08/04/2022 8:45 AM PST Approved by: Mildred Sandy MD on 08/04/2022 8:45 AM PST Station ID: [id number]
== END 2022-08-03 11:49 | disposition home or self-care (01) ==
LOC: DI 11:48
PROVIDERS: ATTEND Internal Medicine Rheumatology
DX: M16.0 Bilateral primary osteoarthritis of hip (principal); M47.898 Other spondylosis, sacral and sacrococcygeal region; M47.816 Spondylosis without myelopathy or radiculopathy, lumbar region; M51.36 Other intervertebral disc degeneration, lumbar region; M43.16 Spondylolisthesis, lumbar region; M48.56XD Collapsed vertebra, not elsewhere classified, lumbar region, subsequent encounter for fracture with routine healing; M48.26 Kissing spine, lumbar region; K80.20 Calculus of gallbladder without cholecystitis without obstruction
CPT/HCPCS: 36415; 85651; 86140

== ENCOUNTER 2022-08-24 09:47 | Outpatient (CLI) | payer MEDICARE ==
--- NOTE | 2022-08-24 13:32 | XRAY Report ---
PROCEDURE: Knee 3 View LT INDICATIONS: KNEE PAIN,LEFT TECHNIQUE: 3 views of the left knee(s) were acquired. COMPARISON: Left knee 03/07/2018 FINDINGS: Bones: No fractures or dislocations. No suspicious bony lesions. There is moderate to severe media l moderate patellofemoral compartment narrowing. Small periarticular osteophytes are present. No defi nitive erosions. There has been mild interval progression compared to prior exam. Soft tissues: No joint effusion. No suspicious soft tissue calcifications. IMPRESSION: Mild interval progression of arthritic change most severe medially. Reviewed by: Marcie Panchal MD on 08/24/2022 1:31 PM PST Approved by: Marcie Panchal MD on 08/24/2022 1:31 PM PST Station ID: [id number]
== END 2022-08-24 09:48 | disposition home or self-care (01) ==
LOC: DI 09:47
PROVIDERS: ATTEND Physician Assistant Medical
DX: M17.12 Unilateral primary osteoarthritis, left knee (principal)

== ENCOUNTER 2022-12-07 12:46 | Emergency (ER) | payer MEDICARE ==
[2022-12-07 13:15] VITALS: BP 140/85
--- NOTE | 2022-12-07 14:06 | XRAY Report ---
PROCEDURE: Wrist 4 View RT INDICATIONS: Trauma TECHNIQUE: 4 views of the wrist were acquired. COMPARISON: None. FINDINGS: Bones: There is a comminuted and impacted humeral distal radial fracture. Distal fragment is dorsall y angulated. Fracture lucency extends into the articular surface. Soft tissues: No suspicious soft tissue calcifications or masses. IMPRESSION: Intra-articular distal radial fracture with dorsal angulation. Reviewed by: Marcie Panchal MD on 12/07/2022 2:05 PM PDT Approved by: Marcie Panchal MD on 12/07/2022 2:05 PM PDT Station ID: [id number]
[2022-12-07] MEDS ORDERED: HYDROmorphone 1 MG/ML CARPUJECT IM STA (15:11)
--- NOTE | 2022-12-07 15:12 | ED Physician Documentation ---
History of Present Illness - Stated complaint Stated Complaint: FALL HAND/BACK PX - Chief complaint Chief Complaint: Trauma Ext - Additonal information Additional information: 67-year-old female presents emergency department for evaluation of acute right wrist pain. She does have a longstanding history of back pain. She states that with her stenosis she often gets numbness in her legs. She was getting out of her vehicle this morning after shopping and had her arms full of groceries when she tweaked her back getting out of the car and fell forward onto an outstretched hand. She presents with deformity to the right wrist and signif icant bruising along the ulnar aspect of the distal wrist. She is neurovascularly intact. She has fractured this wrist in the past that was nonoperatively managed. Review of Systems Constitutional: reports: Reviewed and negative Throat: reports: Reviewed and negative Musculoskeletal: reports: Back pain (Chronic low back pain), Extremity pain PD PAST MEDICAL HISTORY - Past Medical History Cardiovascular: High cholesterol, Other Respiratory: Other Neuro: None Endocrine/Autoimmune: HyPOthyroidism GI: GERD, Ulcerative colitis : Incontinence Psych: Depression, Anxiety, Panic attacks Musculoskeletal: Osteoarthritis, Other Derm: Other - Past Surgical History Past Surgical History: Yes General: Bowel surgery, Colonoscopy Ortho: Knee replacement, Arthroscopic surgery HEENT: Tonsil/Adenoidectomy - Present Medications Home Medications: Ambulatory Orders Medication Instructions Recorded Confirmed Levothyroxine Inj [Synthroid Inj] 100 mcg ORAL DAILY 12/18/13 03/29/19 Amitriptyline HCl 25 mg PO QPM 03/29/19 03/29/19 Fluoxetine HCl [Prozac] 40 mg PO DAILY 03/29/19 03/29/19 Gabapentin 300 mg PO BID 03/29/19 03/29/19 Topiramate [Topamax] 100 mg PO DAILY 03/29/19 03/29/19 Zolpidem Tartrate 5 mg PO QPM 03/29/19 03/29/19 HYDROcod/ACETAM 5/325 [Cowarts 5/325] 1 tablet PO BID PRN #20 tablet 12/07/22 - Allergies Allergies/Adverse Reactions: Allergies Allergy/AdvReac Type Severity Reaction Status Date / Time Penicillins Allergy Unknown Unknown Verified 12/07/22 13:05 Sulfa (Sulfonamide Allergy Unknown Unknown Verified 12/07/22 13:05 Antibiotics) oxycodone HCl * AdvReac Severe Chest Verified 12/07/22 13:05 [From OxyContin] Pain/SOB - Social History Does the pt smoke?: No Smoking Status: Never smoker Does the pt drink ETOH?: Yes Does the pt have substance abuse?: No - POLST Patient has POLST: No PD ED PE EXPANDED - General General: Alert, In Pain - Extremities Extremities: Right wrist (Tenderness of the proximal wrist. It does appear angulated dorsally. Significant ecchymosis along the ulnar aspect of the wrist. 2+ radial pulse. Otherwise neurovascularly intact.) Results - Vitals Vitals: Vital Signs - 24 hr 12/07/22 12/07/22 12/07/22 13:05 14:57 15:09 Temperature 36.8 C Heart Rate 84 Respiratory 18 17 19 Rate Blood Pressure 140/85 H O2 Saturation 94 12/07/22 15:27 Temperature Heart Rate Respiratory 16 Rate Blood Pressure O2 Saturation Oxygen O2 Source Room air - Rads (name of study) right wrist xr Relevant Findings:: Final report received (intra-articular distal radial fracture with dorsal angulation) PD Medical Decision Making - ED course Complexity details: reviewed results, re-evaluated patient, considered differential, d/w patient ED course: 67-year-old female presents emergency department for evaluation of acute right wrist pain after a fall when getting out of her car. Longstanding history of back pain and she tweaked her back when raking leaves yesterday. On exam she has a dorsally angulated wrist which was partially reduced and splinted with a long-arm posterior volar splint. She is neurovascular intact post splinting. I am going to write a limited prescription of hydrocodone for analgesia. She is to ask for referral to orthopedics for follow-up as this will likely require operative repair. Usual splint care and emergent return precautions were discussed I am prescribing a short course of short-acting opioid pain medication for this patient. I have reviewed the patients [employer] and no concerning findings were noted. I have discussed that the opioids are for short term therapy only, and will not be refilled from the ED. Departure - Departure Disposition: 01 Home, Self Care Clinical Impression: Distal radius fracture, right Qualifiers: Encounter type: initial encounter Fracture type: closed Fracture morphology: other intra-articular Qualified Code(s): S52.571A - Other intraarticular fracture of lower end of right radius, initial encounter for closed fracture Condition: Stable Record reviewed to determine appropriate education?: Yes Instructions: ED Fx Forearm Radius Ulna Redu Requ Prescriptions: HYDROcod/ACETAM 5/325 [Cowarts 5/325] 1 tablet PO BID PRN #20 tablet PRN Reason: Pain Comments: Jenelle unfortunately after your fall today you did fracture the radial bone within your right wrist. This will undoubtedly likely require surgery in order to stabilize and allow the fracture to heal well. You were placed in a temporary fiberglass splint. This cannot get wet. You may require some assistance at home when showering or doing other activities of daily living. Please call your primary care doctor tomorrow to obtain an urgent referral to any orthopedist of your choice in order to have this addressed. Ideally you would be seen by an orthopedic doctor within the next week. You can continue your usual pain medications at home but for more severe pain I am writing a limited prescription of oxycodone. This cannot be refilled from the Emergency department. If you develop any numbness or tingling in your hands, have unexplained fevers, have discoloration of your fingers or feel the splint is not properly fitting then please return immediately to the ER. I am prescribing a short course of narcotic pain medication for you. These are potentially dangerous and addictive medications that should be used carefully. These medications may constipate you. Take an qobr-bfg-jueewij stool softener (docusate) twice daily with plenty of water while taking these medications. If you go 24 hours without a bowel movement, take yhbc-hql-xhkymfl miralax, per package instructions. Do not drink or drive while taking these medications. If you received narcotic or sedating medications while in the emergency department, do not drive for 24 hours. Store this medication in a safe, secure place and out of reach of children. It is a violation of federal law to give or sell this medication to another person or to use in a manner other than prescribed. The ED will not refill narcotic prescriptions, including prescriptions lost or stolen. To dispose of unwanted medications: 1. [facility] at [address] in [place] has a medication drop box. They accept prescription medications (in pill form) Monday through Monday 9:00 a.m. to 5:00 p.m. 2. [facility] accepts prescription medications (in pill form only) for disposal year round. Call for more information. 3. Contact the [facility] for the next [facility] sponsored prescription drug collection event. , [phone], or [phone]; Note that many narcotic pain relievers also contain Tylenol/acetaminophen. Please ensure that your total dose of acetaminophen from all sources does not exceed 3 g (3000 mg) per day.
== END 2022-12-07 15:49 | disposition home or self-care (01) ==
LOC: ED 12:46
DX: S52.571A Other intraarticular fracture of lower end of right radius, initial encounter for closed fracture (principal); W19.XXXA Unspecified fall, initial encounter; E78.00 Pure hypercholesterolemia, unspecified; E03.9 Hypothyroidism, unspecified; Z79.899 Other long term (current) drug therapy
CPT/HCPCS: 25605; 73110; 96372; 99283; J1170

== ENCOUNTER 2022-12-13 08:00 | Outpatient (CLI) | payer MEDICARE ==
--- NOTE | 2022-12-13 13:00 | XRAY Report ---
PROCEDURE: Wrist 3 View RT INDICATIONS: RIGHT WRIST FRACTURE TECHNIQUE: 3 views of the wrist were acquired. COMPARISON: X-ray wrist 12/07/2022 FINDINGS: Bones: There is a comminuted, impacted distal radial fracture. Intra-articular extension is present. There is dorsal angulation of the distal fragment although less prominent when compared to prior exa m. Soft tissues: No suspicious soft tissue calcifications or masses. IMPRESSION: Comminuted intra-articular distal radial fracture with less prominent dorsal angulation. Reviewed by: Marcie Panchal MD on 12/13/2022 12:58 PM PDT Approved by: Marcie Panchal MD on 12/13/2022 12:58 PM PDT Station ID: [id number]
== END 2022-12-13 23:59 | disposition home or self-care (01) ==
LOC: DI.WOS 08:00
PROVIDERS: ATTEND Orthopaedic Surgery
DX: S52.571A Other intraarticular fracture of lower end of right radius, initial encounter for closed fracture (principal)

== ENCOUNTER 2022-12-14 11:08 | Day surgery (SDC) | payer MEDICARE ==
[2022-12-14] MEDS ORDERED: LACTATED RINGERS 1,000 ML IV ONE ×2 (11:30→14:20)
[2022-12-14] MEDS ORDERED: ACETAMINOPHEN 500 MG TABLET PO ONE (11:31)
[2022-12-14] MEDS ORDERED: CELECOXIB 100 MG CAPSULE PO ONE (11:32)
[2022-12-14] MEDS ORDERED: ceFAZolin 2 GM VIAL ONE (11:32)
--- NOTE | 2022-12-14 12:58 | ANESTHESIA ---
Pre-Anesthesia VS, & Labs - Diagnosis right radial fracture - Procedure closed reduction and percutaneous pining right radial fracture Vital Signs: Temp Pulse Resp BP Pulse Ox O2 Flow Rate 36.6 C 76 18 126/84 H 97 12/14/22 11:46 12/14/22 11:46 12/14/22 11:46 12/14/22 11:46 12/14/22 11:46 Height: 5 ft 4 in Weight (kg): 101 kg Body Mass Index: 38.2 BMI Classification: Obese - NPO >8 hours - Is Patient ?: No Home Medications and Allergies Home Medications: Ambulatory Orders Atorvastatin [Lipitor] 20 mg PO HS 12/13/22 traMADol [Ultram] 50 mg PO Q6HR PRN 12/13/22 Levothyroxine Inj [Synthroid Inj] 100 mcg ORAL DAILY 12/18/13 Amitriptyline HCl 25 mg PO QPM 03/29/19 Fluoxetine HCl [Prozac] 80 mg PO DAILY 03/29/19 Topiramate [Topamax] 100 mg PO DAILY 03/29/19 Zolpidem Tartrate 5 mg PO QPM 03/29/19 Atorvastatin [Lipitor] 20 mg PO HS 12/13/22 traMADol [Ultram] 50 mg PO Q6HR PRN 12/13/22 Allergies/Adverse Reactions: Allergies Allergy/AdvReac Type Severity Reaction Status Date / Time Penicillins Allergy Unknown Unknown Verified 12/07/22 13:05 Sulfa (Sulfonamide Allergy Unknown Unknown Verified 12/07/22 13:05 Antibiotics) oxycodone HCl * AdvReac Severe Chest Verified 12/07/22 13:05 [From OxyContin] Pain/SOB Anes History & Medical History - Medical History Cardiovascular: reports: High cholesterol Pulmonary: reports: None Gastrointestinal: reports: GERD, Ulcerative colitis Urinary: reports: Incontinence Neuro: reports: None Musculoskeletal: reports: Osteoarthritis, Fibromyalgia, Other Endocrine/Autoimmune: reports: HyPOthyroidism Blood Disorders: reports: None Skin: reports: Other Smoking Status: Never smoker Psychosocial: reports: Anxiety History of Cancer?: No - Surgical History General: reports: Bowel surgery, Colonoscopy Eyes Ears Nose Throat (EENT): reports: Tonsil/Adenoidectomy Orthopedic: reports: Knee replacement, Arthroscopic surgery Exam General: Alert, Oriented x3, Cooperative, No acute distress Dental: WNL Mouth Openin Fingerbreadth Neck Mobility: Normal Mallampati classification: II Thyromental Distance: 4-6 cm Mental/Cognitive Status: Alert/Oriented X3, Normal for patient Plan Anesthesia Type: General Consent for Procedure(s) Verified and Reviewed: Yes Code Status: Attempt Resuscitation ASA classification: 2-Mild systemic disease Is this case an emergency?: No
[2022-12-14] MEDS ORDERED: ONDANSETRON 4 MG/2 ML VIAL IVP PRN (13:01)
[2022-12-14] MEDS ORDERED: fentaNYL 100 MCG/2 ML VIAL IVP PRN (13:01)
[2022-12-14] MEDS ORDERED: HYDROmorphone 0.5 MG/0.5 ML SYRINGE IVP PRN (13:01)
[2022-12-14] MEDS ORDERED: MORPHINE 2 MG/ML CARPUJECT IVP PRN (13:01)
[2022-12-14] MEDS ORDERED: ATROPINE ABBOJECT 1 MG/10 ML SYRINGE IVP PRN (13:01)
[2022-12-14] MEDS ORDERED: NALOXONE 0.4 MG/ML VIAL IVP PRN (13:01)
[2022-12-14] MEDS ORDERED: BUPIVACAINE 0.5%-EPI 1:200000 PF 30 ML VIAL ONE (13:04)
[2022-12-14] MEDS ORDERED: LIDOCAINE 2%-EPI 1:100000 20 ML MDV ONE (13:04)
[2022-12-14] MEDS ORDERED: PROPOFOL 200 MG/20 ML VIAL IVP ONE (13:11)
[2022-12-14] MEDS ORDERED: MIDAZOLAM 2 MG/2 ML VIAL ONE (13:12)
[2022-12-14] MEDS ORDERED: LACTATED RINGERS 1,000 ML IV SCH (14:00)
[2022-12-14] MEDS ORDERED: ONDANSETRON 4 MG/2 ML VIAL ONE (14:11)
[2022-12-14] MEDS ORDERED: DEXAMETHASONE 4 MG/ML VIAL ONE (14:12)
[2022-12-14] MEDS ORDERED: ONDANSETRON ODT 4 MG TABLET TL PRN (14:18)
--- NOTE | 2022-12-14 14:20 | OPERATIVE REPORT ---
Operative Report - General Procedure Date: 12/14/22 Planned Procedure: Closed reduction right distal radius with percutaneous K wires Pre-Op Diagnosis: Displaced, comminuted fracture right distal radius Procedure Performed: Closed reduction, percutaneous K wire fixation right distal radius Post Op Diagnosis: Same as preoperative diagnosis - Procedure Note Primary Surgeon: Armond Hand MD Secondary Surgeon: Ramonita Narayanan PAC Anesthesia Technique: General ET tube Estimated Blood Loss (mL): 5 Indications: This is a 67-year-old woman with a fall from standing height, landing on outstretched right hand with subsequent pain right wrist area with deformity. She was seen in the emergency room where she had a splint applied. Her exam showed limited motion right wrist with pain, deformity right wrist, tendon function and neurovascular status intact, skin intact. X-rays show a comminuted displaced angulated extra-articular and perhaps subtle intra-articular fracture of the right distal radius. Informed consent obtained at the office for percutaneous pinning right distal radius Findings: Displaced, comminuted right distal radius fracture.The fracture realigned well with traction through fingers and manipulation at fracture site Complications: None - Other Other Information/Narrative: The patient was brought to the operating room and was placed in a supine position with the right arm on a arm extension table. The patient received a General anesthetic. The right upper extremity was prepped and draped in a sterile manner in the usual fashion. The C-arm image intensifier was utilized and covered with a sterile drape. A timeout procedure was performed by the entire operating room team and all were in agreement. Finger traps were applied to all 5 fingers and a traction bow as well. Longitudinal traction was applied, direct manipulation of the fracture site over a sterile bump. The C-arm image intensifier showed good alignment and a percutaneous pinning was performed with 0.062 K wires. The bare area of the radial styloid was engaged and pin was inserted from the styloid across the fracture to achieve bicortical fixation. An additional K wire from the radial styloid was also inserted to provide 2 bicortical K wires from the radial styloid. 1 additional K wires were inserted from the ulnar corner of the distal radius distally and then driven from distal to proximal and ulnar to radial. Biplanar and oblique imaging was obtained and there was good alignment of the fixation and fracture. The K wires were cut external to skin and covered with sterile balls. A well-padded short arm fiberglass splint was applied with gauze padding around the K wires. He tolerated the procedure well. No tourniquet was utilized.A physician syrup mixer assistant was medically necessary to help with prepping and draping, positioning, protection of vital structures, assistance during the procedure including wound closure, dressing and/or splinting.
[2022-12-14] MEDS ORDERED: HYDROmorphone 1 MG/ML CARPUJECT ONE (14:23)
[2022-12-14] MEDS ORDERED: HYDROmorphone 0.5 MG/0.5 ML SYRINGE ONE ×2 (14:40→15:42)
[2022-12-14 15:44] VITALS: BP 149/82
[2022-12-14] MEDS ORDERED: HYDROmorphone 0.5 MG/0.5 ML SYRINGE IVP ONE (16:00)
--- NOTE | 2022-12-14 16:35 | ANESTHESIA POST OP EVALUATION ---
Anesthesia Post Eval - Post Anesthesia Eval Vitals: Last Vital Signs Temp 36.5 C 12/14/22 15:40 Pulse 77 12/14/22 15:40 Resp 14 12/14/22 15:40 BP 149/82 H 12/14/22 15:40 Pulse Ox 95 12/14/22 15:40 O2 Flow Rate CV Function Including HR & BP: Stable Pain Control: Satisfactory Nausea & Vomiting: Negative Mental Status: Baseline Respiratory Status: Airway Patent Hydration Status: Satisfactory Anesthesia Complications: None
[2022-12-14] MEDS ORDERED: CELECOXIB 100 MG CAPSULE PO PRN (18:00)
[2022-12-14] MEDS ORDERED: ACETAMINOPHEN 500 MG TABLET PO PRN (18:00)
--- NOTE | 2022-12-15 08:10 | XRAY Report ---
PROCEDURE: OR C-Arm Procedure INDICATIONS: COLLES FX OF RIGHT RADIUS FLUORO TIME: 0:13 MIN TECHNIQUE: 3 intraoperative fluoroscopic images obtained. COMPARISON: None. FINDINGS: 3 intraoperative fluoroscopic images from wrist fixation. IMPRESSION: Intraprocedural fluoroscopy was provided for guidance and anatomic localization. Please see the proc edure report for further details. Reviewed by: Joshua Billings MD on 12/15/2022 8:09 AM PDT Approved by: Joshua Billings MD on 12/15/2022 8:09 AM PDT Station ID: [id number]
== END 2022-12-14 11:09 | disposition home or self-care (01) ==
LOC: SDS 11:08
PROVIDERS: ATTEND Orthopaedic Surgery
DX: S52.531A Colles' fracture of right radius, initial encounter for closed fracture (principal); E66.9 Obesity, unspecified; Z68.38 Body mass index [BMI] 38.0-38.9, adult; F41.9 Anxiety disorder, unspecified
CPT/HCPCS: 25606; A9270; C1713; J1170; J7120

== ENCOUNTER 2023-01-10 08:00 | Outpatient (CLI) | payer MEDICARE ==
--- NOTE | 2023-01-10 11:56 | XRAY Report ---
PROCEDURE: Wrist 3 View RT INDICATIONS: RIGHT WRIST FRACTURE follow-up. TECHNIQUE: 3 views of the wrist were acquired. COMPARISON: None. FINDINGS: Bones: External pinning of the distal radial styloid fracture. Anatomic alignment. Soft tissues: No suspicious soft tissue calcifications or masses. IMPRESSION: External pinning of the distal radial styloid fracture. Reviewed by: Abrahan Hsieh on 01/10/2023 11:55 AM PDT Approved by: Abrahan Hsieh on 01/10/2023 11:55 AM PDT Station ID: [id number]
== END 2023-01-10 23:59 | disposition home or self-care (01) ==
LOC: DI.WOS 08:00
PROVIDERS: ATTEND Orthopaedic Surgery
DX: S52.511D Displaced fracture of right radial styloid process, subsequent encounter for closed fracture with routine healing (principal)

== ENCOUNTER 2023-01-23 15:01 | Outpatient (CLI) | payer MEDICARE ==
--- NOTE | 2023-01-23 17:04 | XRAY Report ---
PROCEDURE: Wrist 3 View RT INDICATIONS: RIGHT WRIST FRACTURE POST PINN REMOVAL TECHNIQUE: 3 views of the wrist were acquired. COMPARISON: 01/10/2023, 12/14/2022 and 12/13/2022. FINDINGS: Bones: There is interval further healing at distal radial impacted fracture site. No new fracture or dislocation. Wrist alignment is unchanged from prior study. Osteoarthritic changes are noted through out wrist joints. No suspicious bony lesions. Soft tissues: No suspicious soft tissue calcifications or masses. IMPRESSION: Interval further healing at distal radial fracture site with stable and near-anatomic wrist alignment . No new fracture or dislocation. Wrist joint osteoarthritis. Reviewed by: Shahbaz Pal MD on 01/23/2023 5:03 PM PDT Approved by: Shahbaz Pal MD on 01/23/2023 5:03 PM PDT Station ID: [id number]
== END 2023-01-23 23:59 | disposition home or self-care (01) ==
LOC: DI.WOS 15:01
PROVIDERS: ATTEND Physician Assistant Surgical
DX: S52.531D Colles' fracture of right radius, subsequent encounter for closed fracture with routine healing (principal); M19.031 Primary osteoarthritis, right wrist

== ENCOUNTER 2023-01-27 09:19 | Outpatient (CLI) | payer MEDICARE ==
--- NOTE | 2023-01-30 08:55 | Mammography Report ---
BILATERAL DIGITAL SCREENING MAMMOGRAM 3D/2D: 01/27/2023 CLINICAL: Routine screening. Comparison is made to exams dated: 06/24/2021 mammogram, 09/05/2017 mammogram, 07/23/2014 mammogram, a nd 05/10/2013 mammogram - [facility]. There are scattered areas of fibroglandular density in both breasts (category b / 25%-50% glandular t issue). No significant masses, calcifications, or other findings are seen in either breast. There has been no significant interval change. IMPRESSION: NEGATIVE There is no mammographic evidence of malignancy. A 1 year screening mammogram is recommended. Based on the Tyrer Cuzick model (a risk assessment model) the patients lifetime risk is 6.1% and her 10 year risk is 2.9%. According to the ACR, ACS, and NCCN guidelines, an annual breast MRI exam konrad g with mammogram is recommended if the patients lifetime risk is 20% or greater. This exam was interpreted at Station ID: [id number]. NOTE: For mammograms, a report in lay terms will be sent to the patient. Approximately 15% of breast malignancies will not be visualized mammographically. In the management of a palpable breast mass, a negative mammogram must not discourage biopsy of a clinically suspicious lesion. Electronically Signed By: Alexys keen/mignon:01/27/2023 10:15:39 letter sent: No_Letter ACR BI-RADS Category 1: Negative 3341F PARENCHYMAL PATTERN: (A) - The breast(s) demonstrate(s) scattered fibroglandular densities. BI-RADS CATEGORY: (1) - 1 Mammogram [id number] 1 year screening LATERALITY: (B)
== END 2023-01-27 09:20 | disposition home or self-care (01) ==
LOC: DI 09:19
PROVIDERS: ATTEND Internal Medicine
DX: Z12.31 Encounter for screening mammogram for malignant neoplasm of breast (principal)

== ENCOUNTER 2023-01-27 09:19 | Outpatient (CLI) | payer MEDICARE ==
--- NOTE | 2023-01-27 13:04 | DEXA Report ---
PROCEDURE: Dexa Spine and/or Hip INDICATIONS: POST MENOPAUSAL TECHNIQUE: Dual energy x-ray absorptiometry (DXA) was performed on a [employer] System. Regions measur ed are the AP Spine, femoral neck, and if needed forearm. COMPARISON: 03/10/2020 FINDINGS: Lumbar Spine: Bone Mineral Density 1.170 g/cm/cm,T score -0.1, previously -0.6. Left Femoral Neck: Bone Mineral Density 0.860 g/cm/cm, T score -1.3, previously -1.5. Left Hip: Bone Mineral Density 0.847 g/cm/cm,T score -1.3, previously -1.3. (T score greater or equal to -1.0: NORMAL) (T score from -1.1 to -2.4: OSTEOPENIA) (T score less than or equal to -2.5 to: OSTEOPOROSIS) Impression: By WHO criteria, this patient has low bone density (osteopenia), improving from the prior exam. Patients with diagnosis of osteoporosis or osteopenia should have regular bone mineral density assess ment. For those eligible for Medicare, routine testing is allowed once every 2 years. Testing frequ ency can be increased for patients who have rapidly progressing disease or for those who are receivin g medical therapy to restore bone mass. Reviewed by: Brandon Barth MD on 01/27/2023 12:03 PM ASHELY Approved by: Brandon Barth MD on 01/27/2023 12:03 PM ASHELY Station ID: [id number]
== END 2023-01-27 09:20 | disposition home or self-care (01) ==
LOC: DI 09:19
PROVIDERS: ATTEND Internal Medicine
DX: M85.89 Other specified disorders of bone density and structure, multiple sites (principal)

== ENCOUNTER 2023-06-08 11:27 | Outpatient (CLI) | payer MEDICARE | END 2023-06-08 11:28 | disposition home or self-care (01) | LOC: LAB.R 11:27 | PROVIDERS: ATTEND Nurse Practitioner | DX: R19.7 Diarrhea, unspecified (principal) | CPT/HCPCS: 87177; 87209; 87493 ==

== ENCOUNTER 2023-06-09 07:59 | Outpatient (CLI) | payer MEDICARE ==
[2023-06-09 08:55] LABS: ALBUMIN 3.9 g/dL (3.2-5.5); ALBUMIN/GLOBULIN RATIO 1.3 (1.0-2.2); ALKALINE PHOSPHATASE 71 IU/L (42-121); ALT ALANINE AMINOTRANSFERASE 15 IU/L (10-60); AST ASPARTATE AMINOTRANSFERASE 16 IU/L (10-42); BILIRUBIN,TOTAL 0.4 mg/dL (0.2-1.0); BUN - BLOOD UREA NITROGEN 11 mg/dL (6-20); CALCIUM 9.4 mg/dL (8.5-10.3); CARBON DIOXIDE - CO2 28 mmol/L (21-32); CHLORIDE 106 mmol/L (101-111); CHOL/HDL RATIO 4.6 (<4.4); CHOLESTEROL 235 mg/dL; CREATININE 1.1 mg/dL (0.6-1.3); GFR - MDRD 50 (>89); GLUCOSE 89 mg/dL (74-104); HDL CHOLESTEROL 51 mg/dL; LDL CHOLESTEROL,CALCULATED 145 mg/dL; LDL/HDL RATIO 2.8 (<4.4); POTASSIUM 4.2 mmol/L (3.5-4.5); SODIUM 137 mmol/L (135-145); TOTAL PROTEIN 6.8 g/dL (6.4-8.9); TRIGLYCERIDES 195 mg/dL (48-352); VLDL CHOLESTEROL 39 mg/dL
[2023-06-09 09:09] LABS: THYROID STIMULATING HORMONE 1.19 uIU/mL (0.34-5.60)
[2023-06-09 11:44] LABS: ESTIMATED AVERAGE GLUCOSE 103 mg/dL (70-100); HEMOGLOBIN A1c% 5.2 % (4.27-6.07)
== END 2023-06-09 08:00 | disposition home or self-care (01) ==
LOC: LAB 07:59
PROVIDERS: ATTEND Nurse Practitioner
DX: R63.5 Abnormal weight gain (principal)
CPT/HCPCS: 36415; 80053; 80061; 83036; 83721; 84443

== ENCOUNTER 2023-07-15 10:29 | Outpatient (CLI) | payer MEDICARE | END 2023-07-15 10:30 | disposition home or self-care (01) | LOC: LAB 10:29 | PROVIDERS: ATTEND Nurse Practitioner | DX: R14.0 Abdominal distension (gaseous) (principal) | CPT/HCPCS: 36415; 81599; 86003 ==

== ENCOUNTER 2023-12-08 12:10 | Outpatient (CLI) | payer MEDICARE | END 2023-12-08 12:11 | disposition home or self-care (01) | LOC: LAB 12:10 | PROVIDERS: ATTEND Nurse Practitioner | DX: M19.90 Unspecified osteoarthritis, unspecified site (principal); M35.3 Polymyalgia rheumatica | CPT/HCPCS: 36415; 86140 ==

== ENCOUNTER 2024-01-24 14:29 | Emergency (ER) | payer MEDICARE ==
[2024-01-24 14:49] VITALS: O2SAT 98
[2024-01-24] MEDS: MORPHINE 10 MG/ML VIAL IM STA (16:41)
--- NOTE | 2024-01-24 17:12 | XRAY Report ---
PROCEDURE: Ankle 3+V LT INDICATIONS: fall/pain/swelling TECHNIQUE: 3 views of the ankle were acquired. COMPARISON: None. FINDINGS: Bones: Decreased mineralization. No visible fractures or dislocations. Ankle mortise is normally ali gned. No suspicious bony lesions. Soft tissues: No tibiotalar joint effusion. Achilles tendon appears normal. IMPRESSION: No acute bony abnormality. Reviewed by: Maddi Jolly MD on 01/24/2024 5:10 PM PDT Approved by: Maddi Jolly MD on 01/24/2024 5:10 PM PDT Station ID: [id number]
--- NOTE | 2024-01-24 17:14 | XRAY Report ---
PROCEDURE: Ribs w/PA Chest 3+V RT INDICATIONS: fall/pain TECHNIQUE: 2 views of the ribs were acquired, along with a single view chest. COMPARISON: None. FINDINGS: Surgical changes and devices: None. Bones and chest wall: No fractures or dislocations. No suspicious bony lesions. Overlying soft tis sues appear unremarkable. Lungs and pleura: No pleural effusions or pneumothorax. Lungs appear clear. Mediastinum: Mediastinal contours appear normal. Heart size is normal. IMPRESSION: No displaced rib fracture or pneumothorax. Reviewed by: Maddi Jolly MD on 01/24/2024 5:12 PM PDT Approved by: Maddi Jolly MD on 01/24/2024 5:12 PM PDT Station ID: [id number]
--- NOTE | 2024-01-24 17:14 | XRAY Report ---
PROCEDURE: Shoulder 2+V LT INDICATIONS: fall/L shoulder pain TECHNIQUE: 3 views of the shoulder were acquired. COMPARISON: None. FINDINGS: Bones: No fractures or dislocations. No suspicious bony lesions. Visualized ribs appear intact. Soft tissues: No suspicious soft tissue calcifications. The visualized lungs are within normal limi ts. IMPRESSION: No acute bony abnormality. Reviewed by: Maddi Jolly MD on 01/24/2024 5:13 PM PDT Approved by: Maddi Jolly MD on 01/24/2024 5:13 PM PDT Station ID: [id number]
--- NOTE | 2024-01-24 17:16 | XRAY Report ---
PROCEDURE: Wrist 3+V LT INDICATIONS: fall/pain/swelling TECHNIQUE: 3 views of the wrist were acquired. COMPARISON: None. FINDINGS: Bones: Decreased mineralization. There is an impacted, comminuted, intra-articular, and mildly displ aced fracture of distal radius. There is no significant angulation. There are moderate degenerative c hanges at the first CMC joint. Soft tissues: No suspicious soft tissue calcifications or masses. IMPRESSION: Impacted, intra-articular distal radius fracture Underlying first CMC joint osteoarthritis. Reviewed by: Maddi Jolly MD on 01/24/2024 5:14 PM PDT Approved by: Maddi Jolly MD on 01/24/2024 5:14 PM PDT Station ID: [id number]
--- NOTE | 2024-01-24 17:57 | ED Physician Documentation ---
History of Present Illness - Stated complaint Stated Complaint: GLF, LT WRIST/BILAT ANKLE INJ - Chief complaint Chief Complaint: Trauma Hd/Nk - History obtained from History obtained from: Patient - Additonal information Additional information: The patient comes to the emergency department chief complaint of bilateral ankle, bilateral wrist, left shoulder, and right anterior rib pain after a trip and fall today. She states she was not watching where she was going and her foot caught the curb and she fell. Patient primarily landed on her left side that she did roll over on her right. She states her Left wrist hurts the most and somewhat swollen. She denies any loss of consciousness but did "bump her glasses on the cement" which has resulted in some pain in her cheek beneath the glasses. No neck or back pain. She denies any shortness of breath with that right rib pain. No abdominal pain. No hip pain. She has been ambulatory on both of her ankles while wearing platform shoes. PD PAST MEDICAL HISTORY - Past Medical History Cardiovascular: High cholesterol Respiratory: None Neuro: None Endocrine/Autoimmune: HyPOthyroidism GI: GERD, Ulcerative colitis GARMENT SORTER: None : Incontinence HEENT: None, Other Psych: Depression, Anxiety, Panic attacks Musculoskeletal: Osteoarthritis, Fibromyalgia, Other Derm: Other - Past Surgical History Past Surgical History: Yes General: Bowel surgery, Colonoscopy Ortho: Knee replacement, Arthroscopic surgery HEENT: Tonsil/Adenoidectomy - Present Medications Home Medications: Ambulatory Orders Medication Instructions Recorded Confirmed Levothyroxine Inj [Synthroid Inj] 100 mcg ORAL DAILY 12/18/13 12/13/22 Amitriptyline HCl 25 mg PO QPM 03/29/19 12/13/22 Fluoxetine HCl [Prozac] 80 mg PO DAILY 03/29/19 12/13/22 Atorvastatin [Lipitor] 20 mg PO HS 12/13/22 12/13/22 HYDROcod/ACETAM 5/325 [[place] 5/325] 1 - 2 tablet PO Q6H PRN #20 tablet 01/24/24 - Allergies Allergies/Adverse Reactions: Allergies Allergy/AdvReac Type Severity Reaction Status Date / Time Penicillins Allergy Unknown Unknown Verified 01/24/24 14:43 Sulfa (Sulfonamide Allergy Unknown Unknown Verified 01/24/24 14:43 Antibiotics) oxycodone HCl * AdvReac Severe Chest Verified 01/24/24 14:43 [From OxyContin] Pain/SOB - Social History Does the pt smoke?: No Smoking Status: Never smoker Does the pt drink ETOH?: Yes Does the pt have substance abuse?: No - Immunizations Immunizations: TDAP >10years/unknown - POLST Patient has POLST: No PD ED PE NORMAL - Vitals Vital signs reviewed: Yes - General General: Alert and oriented X 3, No acute distress, Well developed/nourished - HEENT HEENT: Atraumatic, PERRL, EOMI, Moist mucous membranes, Other (Glasses are intact, no evidence of bruising, swelling, or other trauma to her face.) - Neck Neck: Supple, no meningeal sign, No bony TTP - Cardiac Cardiac: Strong equal pulses - Respiratory Respiratory: No respiratory distress - Abdomen Abdomen: Soft, Non tender, Non distended - Back Back: No spinal TTP - Derm Derm: Normal color, Warm and dry, No rash - Extremities Extremities: No deformity, Other (Full range of motion bilateral ankles. Full range of motion right wrist. Left wrist edema, moderate limitation range of motion. No deformity. No elbow tenderness. Left shoulder with anterior tenderness palpation. Mild limitation range of motion secondary to pain. No clavicular tenderness) - Neuro Neuro: Alert and oriented X 3 - Psych Psych: Normal mood, Normal affect Results - Vitals Vitals: Vital Signs - 24 hr 01/24/24 14:32 Temperature 36.3 C L Heart Rate 82 Respiratory 16 Rate Blood Pressure 134/82 H O2 Saturation 98 Oxygen O2 Source Room air - Rads (name of study) Left wrist x-ray series Relevant Findings:: Final report received, See rad report (Impacted intra- articular distal radius fracture, no angulation, minimal displacement.) Left ankle x-ray series Relevant Findings:: Final report received, See rad report (Negative) Left shoulder x-ray series Relevant Findings:: Final report received, See rad report (Negative) Right ribs and chest x-ray series Relevant Findings:: Final report received, See rad report (Negative) Procedures - Splint (location) - Minor Left wrist Splint applied by: Nurse, Tech Type of splint: Fiberglass, Sugar tong Other: Patient tolerated well, No complications, Neurovascular intact, Good alignment, Sling provided PD Medical Decision Making - ED course Complexity details: reviewed results, re-evaluated patient, considered differential, d/w patient ED course: The patient was worked up with x-rays of her left wrist, left shoulder, left ankle, and right ribs with chest. She was found to have an impacted but not angulated minimally displaced distal radius fracture. She was placed in sugar- tong splint and given a sling. We have discussed the importance of follow-up with orthopedics within the next week to determine whether they feel surgery is needed and also, to determine casting. The patient had requested pain medication in the emergency department in the form of morphine and she was given 8 mg of morphine IM. She was overheard by staff to be talking to someone on the phone, stating "were all going out to get bloody Marilee's after this". I did go and confront the patient about this as she has just been given an adult dose of morphine for her pain. The patient then denied that she was going to do this, And her stated that he would never let her do it. I have warned her of the danger of going and drinking after receiving narcotic pain medication in the ED. The patient expressed understanding. She has been placed in a splint and a sling. I will refer her to orthopedics Departure - Departure Disposition: 01 Home, Self Care Clinical Impression: Left wrist fracture Qualifiers: Encounter type: initial encounter Fracture type: closed Qualified Code(s): S62.102A - Fracture of unspecified carpal bone, left wrist, initial encounter for closed fracture Left ankle sprain Qualifiers: Encounter type: initial encounter Involved ligament of ankle: unspecified ligament Qualified Code(s): S93.402A - Sprain of unspecified ligament of left ankle, initial encounter Contusion of shoulder, left Qualifiers: Encounter type: initial encounter Qualified Code(s): S40.012A - Contusion of left shoulder, initial encounter Chest wall contusion Qualifiers: Encounter type: initial encounter Laterality: right Qualified Code(s): S20.211A - Contusion of right front wall of thorax, initial encounter Condition: Stable Instructions: ED Contusion Chest Wall, Distal Radius Fx, ED Fx Wrist General Follow-Up: Armond Hand MD [Provider Admit Priv/Credential] - Abner Howard MD [Provider Admit Priv/Credential] - Prescriptions: HYDROcod/ACETAM 5/325 [[place] 5/325] 1 - 2 tablet PO Q6H PRN #20 tablet PRN Reason: Pain Comments: Your left wrist x-ray showed a break at the end of your radius, the larger of your 2 forearm bones, at the wrist joint. The remainder of your x-rays look good. You do have some bruises and sprains, But these are fairly minor injuries which will ultimately get better on their own. You have been placed in a splint today for your fracture and will need to follow-up in the Orthopedic clinic next week. It is important that you call first thing Monday to make the next available appointment, and let them know you were seen in the emergency department for a broken wrist. Keep the splint on until then. You may take the prescribed pain medication as needed. The prescription has been electronically transmitted to the [facility] in [place]. They are open this evening as well as tomorrow from -5.
[2024-01-24 18:33] VITALS: BP 140/79
== END 2024-01-24 18:31 | disposition home or self-care (01) ==
LOC: ED 14:29
DX: S93.402A Sprain of unspecified ligament of left ankle, initial encounter (principal); S40.012A Contusion of left shoulder, initial encounter; S20.211A Contusion of right front wall of thorax, initial encounter; S52.572A Other intraarticular fracture of lower end of left radius, initial encounter for closed fracture; W18.09XA Striking against other object with subsequent fall, initial encounter; Y92.480 Sidewalk as the place of occurrence of the external cause
CPT/HCPCS: 29125; 99284

== ENCOUNTER 2024-02-09 08:00 | Outpatient (CLI) | payer MEDICARE ==
[2024-02-09 16:37] LABS: BILIRUBIN,URINE NEGATIVE (NEGATIVE); GLUCOSE, URINE (UA) NEGATIVE (NEGATIVE); KETONES,URINE (UA) NEGATIVE (NEGATIVE); LEUKOCYTE ESTERASE, URINE SMALL (NEGATIVE); NITRITE,URINE NEGATIVE (NEGATIVE); OCCULT BLOOD,URINE SMALL (NEGATIVE); PH,URINE 5.5 PH (5.0-7.5); PROTEIN,URINE NEGATIVE (NEGATIVE); UROBILINOGEN,URINE 0.2 (NORMAL) E.U./dL (NORMAL)
[2024-02-09 16:58] LABS: BACTERIA,URINE Rare /HPF (None Seen); CLARITY,URINE CLEAR (CLEAR); RBC,URINE 0-5 /HPF (0-5); SQUAMOUS EPITHELIAL CELL,UR FEW Squamous (<= Few)
== END 2024-02-09 23:59 | disposition home or self-care (01) ==
LOC: LAB.WC 08:00
PROVIDERS: ATTEND Nurse Practitioner
DX: R30.0 Dysuria (principal)
CPT/HCPCS: 81001; 87077; 87086; 87181

== ENCOUNTER 2024-03-03 11:46 | Outpatient (CLI) | payer MEDICARE ==
--- NOTE | 2024-03-03 19:02 | XRAY Report ---
PROCEDURE: Wrist 3+V LT INDICATIONS: OTHER INTRAACTICULAR FX TECHNIQUE: 3 views of the wrist were acquired. COMPARISON: 01/24/2024 FINDINGS: Bones: Overlying cast material limits fine bony detail. Redemonstration of comminuted intra-articula r distal radial fracture. Alignment is similar compared to prior. Callus formation is seen. No suspic ious bony lesions. Soft tissues: No suspicious soft tissue calcifications or masses. IMPRESSION: Healing comminuted intra-articular distal radial fracture. Reviewed by: Mikie Solorzano MD on 03/03/2024 7:01 PM PDT Approved by: Mikie Solorzano MD on 03/03/2024 7:01 PM PDT Station ID: [id number]
== END 2024-03-03 11:47 | disposition home or self-care (01) ==
LOC: DI 11:46
PROVIDERS: ATTEND Orthopaedic Surgery
DX: S52.572D Other intraarticular fracture of lower end of left radius, subsequent encounter for closed fracture with routine healing (principal)

== ENCOUNTER 2024-03-13 13:04 | Emergency (ER) | payer MEDICARE ==
--- NOTE | 2024-03-13 13:30 | ED Physician Documentation ---
PD HPI ABD PAIN - Stated complaint Stated Complaint: ABD PX, DIZZY, N - Chief complaint Chief Complaint: Abd Pain - History obtained from History obtained from: Patient - Additional information Additional information: She has history of total colectomy with ileostomy for ulcerative colitis and has had 2 bowel obstructions in the past. Starting this morning she has developed severe diffuse upper abdominal pain with nausea but no vomiting. Is not clear if she has had any changes in her ostomy output. Pain is severe and nonradiating. PD PAST MEDICAL HISTORY - Past Medical History Cardiovascular: High cholesterol Respiratory: None Neuro: None Endocrine/Autoimmune: HyPOthyroidism GI: GERD, Ulcerative colitis LINE HELPER: None : Incontinence HEENT: None, Other Psych: Depression, Anxiety, Panic attacks Musculoskeletal: Osteoarthritis, Fibromyalgia, Other Derm: Other - Past Surgical History Past Surgical History: Yes General: Bowel surgery, Colonoscopy Ortho: Knee replacement, Arthroscopic surgery HEENT: Tonsil/Adenoidectomy - Present Medications Home Medications: Ambulatory Orders Medication Instructions Recorded Confirmed Levothyroxine Inj [Synthroid Inj] 100 mcg ORAL DAILY 12/18/13 03/13/24 Amitriptyline HCl 25 mg PO QPM 03/29/19 03/13/24 Fluoxetine HCl [Prozac] 80 mg PO DAILY 03/29/19 03/13/24 Atorvastatin [Lipitor] 20 mg PO HS 12/13/22 03/13/24 HYDROcod/ACETAM 5/325 [[place] 5/325] 1 - 2 tab PO Q6H PRN #15 tablet 03/13/24 - Allergies Allergies/Adverse Reactions: Allergies Allergy/AdvReac Type Severity Reaction Status Date / Time Penicillins Allergy Unknown Unknown Verified 03/13/24 13:19 Sulfa (Sulfonamide Allergy Unknown Unknown Verified 03/13/24 13:19 Antibiotics) oxycodone HCl * AdvReac Severe Chest Verified 03/13/24 13:19 [From OxyContin] Pain/SOB - Social History Does the pt smoke?: No Smoking Status: Never smoker Does the pt drink ETOH?: Yes Does the pt have substance abuse?: No - Immunizations Immunizations: TDAP >10years/unknown - POLST Patient has POLST: No PD ED PE NORMAL - Vitals Vital signs reviewed: Yes - General General: Alert and oriented X 3, No acute distress - Cardiac Cardiac: RRR, No murmur - Respiratory Respiratory: No respiratory distress, Clear bilaterally - Abdomen Abdomen: Other (Absent bowel sounds with some distention but no obvious tenderness. No significant fluid in the ostomy bag.) - Neuro Neuro: Alert and oriented X 3 Results - Vitals Vitals: Vital Signs - 24 hr 03/13/24 03/13/24 03/13/24 13:07 13:30 16:00 Temperature 36.1 C L Heart Rate 72 68 73 Respiratory 20 17 10 L Rate Blood Pressure 147/72 H 141/101 H 120/75 O2 Saturation 98 100 94 Oxygen O2 Source Room air - Labs Labs: Laboratory Tests 03/13/24 03/13/24 03/13/24 13:30 13:30 15:10 WBC 13.2 H RBC 5.11 Hgb 15.7 Hct 45.6 MCV 89.2 MCH 30.7 MCHC 34.4 RDW 12.6 Plt Count 347 MPV 7.9 Neut # (Auto) 9.0 H Lymph # (Auto) 2.9 Dickson # (Auto) 0.8 Eos # (Auto) 0.5 Baso # (Auto) 0.1 Absolute Nucleated RBC 0.00 Nucleated RBC % 0.0 Sodium 139 Potassium 3.7 Chloride 108 Carbon Dioxide 22 Anion Gap 9.0 BUN 13 Creatinine 0.8 Estimated GFR (MDRD) 72 L Glucose 135 H Calcium 9.7 Total Bilirubin 0.5 AST 35 ALT 21 Alkaline Phosphatase 77 Total Protein 7.3 Albumin 3.9 Globulin 3.4 Albumin/Globulin Ratio 1.1 Lipase 65 Urine Color YELLOW Urine Clarity CLEAR Urine pH 7.5 Ur Specific [place] 1.010 Urine Protein NEGATIVE Urine Glucose (UA) NEGATIVE Urine Ketones NEGATIVE Urine Occult Blood SMALL H Urine Nitrite NEGATIVE Urine Bilirubin NEGATIVE Urine Urobilinogen 0.2 (NORMAL) Ur Leukocyte Esterase NEGATIVE Urine RBC 6-10 H Urine WBC 0-3 Ur Squamous Epith Cells FEW Squamous Urine Bacteria Few Ur Microscopic Review INDICATED Urine Culture Comments NOT INDICATED - Rads (name of study) CT a/p Relevant Findings:: Final report received, EMP independent interpretation of test PD Medical Decision Making - ED course ED course: She presents with symptoms most consistent with a bowel obstruction and is found to have an early small bowel obstruction on CT. Pain significantly better after a single dose of Dilaudid here although she did not like how that felt and after some Toradol she was all but pain-free. Lab work shows mild leukocytosis, no anemia, and basically unremarkable CMP and UA. CT showing early/partial bowel obstruction. She was doing well at that point and declined admission to the hospital understands she is welcome to return at any time. Incidentally noted was findings of likely endometrial cancer on the CT and this was discussed at length with her and I also sent an email to her gynecologic nurse practitioner to expedite follow-up. Departure - Departure Disposition: 01 Home, Self Care Clinical Impression: Partial small bowel obstruction Uterine cancer Qualifiers: Malignant neoplasm of uterus location: body of uterus Malignant neoplasm of body of uterus location: unspecified location Qualified Code(s): C54.9 - Malignant neoplasm of corpus uteri, unspecified Condition: Good Record reviewed to determine appropriate education?: Yes Instructions: ED Abdominal Pain Adhesions Prescriptions: HYDROcod/ACETAM 5/325 [[place] 5/325] 1 - 2 tab PO Q6H PRN #15 tablet PRN Reason: Pain Comments: You were seen today for an early/partial small bowel obstruction. And is not unreasonable to do a clear liquid diet for the next 24 hours and then a slow return to a regular diet. As discussed, we also found by accident that there is a likely uterine cancer this will need further workup and I will email nurse practitioner Dean who you have seen before who can help you with further workup and referrals for treatment for that. You should probably still call her office tomorrow. I sent your prescription electronically to the [facility] pharmacy at the corner of [address] in [place]. I am prescribing a short course of narcotic pain medication for you. These are potentially dangerous and addictive medications that should be used carefully. These medications may constipate you. Take an [id number] stool softener (docusate) twice daily with plenty of water while taking these medications. If you go 24 hours without a bowel movement, take [id number] miralax, per package instructions. Do not drink or drive while taking these medications. If you received narcotic or sedating medications while in the emergency department, do not drive for 24 hours. Store this medication in a safe, secure place and out of reach of children. It is a violation of federal law to give or sell this medication to another person or to use in a manner other than prescribed. The ED will not refill narcotic prescriptions, including prescriptions lost or stolen. To dispose of unwanted medications: 1. [facility] provides a drop box for medication in pill form only (no liquids) 8:00 am to 4:30 p.m. Monday-Monday in the lobby of the [facility] [place], [address] Empty pills into ziplock bag before disposal. Call [phone] for information. 2.[employer] is a free service available to all [facility] residents. Go to [email or web address] Note that many narcotic pain relievers also contain Tylenol/acetaminophen. Please ensure that your total dose of acetaminophen from all sources does not ex ceed 3 g (3000 mg) per day. Forms: PCP List
[2024-03-13] MEDS ORDERED: iohexoL-300 100 ML VIAL ONE (13:31)
[2024-03-13] MEDS ORDERED: DIATRIZOATE MEGLU/DIATRIZO SOD 30 ML BOTTLE PO ONE (13:31)
[2024-03-13 13:36] LABS: BASOPHILS # (AUTO) 0.1 10^3/uL (0.0-0.1); BASOPHILS % (AUTO) 0.4 %; EOSINOPHILS # (AUTO) 0.5 10^3/uL (0.0-0.7); EOSINOPHILS % (AUTO) 3.6 %; HCT - HEMATOCRIT 45.6 % (37.0-47.0); HGB - HEMOGLOBIN 15.7 g/dL (12.0-16.0); LYMPHOCYTES # (AUTO) 2.9 10^3/uL (1.5-3.5); LYMPHOCYTES % (AUTO) 22.1 %; MEAN CORPUSCULAR HEMOGLOBIN 30.7 pg (27.0-31.0); MEAN CORPUSCULAR HGB CONC 34.4 g/dL (32.0-36.0); MEAN CORPUSCULAR VOLUME 89.2 fL (81.0-99.0); MEAN PLATELET VOLUME 7.9 fL (7.9-10.8); MONOCYTES # (AUTO) 0.8 10^3/uL (0.0-1.0); MONOCYTES % (AUTO) 5.8 %; NEUTROPHILS % (AUTO) 67.7 %; PLT - PLATELET COUNT 347 10^3/uL (130-450); RED BLOOD COUNT 5.11 10^6/uL (4.20-5.40); RED CELL DISTRIBUTION WIDTH 12.6 % (12.0-15.0); WHITE BLOOD COUNT 13.2 x10^3/uL (4.8-10.8)
[2024-03-13 13:57] LABS: ALBUMIN 3.9 g/dL (3.2-5.5); ALBUMIN/GLOBULIN RATIO 1.1 (1.0-2.2); BILIRUBIN,TOTAL 0.5 mg/dL (0.2-1.0); CALCIUM 9.7 mg/dL (8.5-10.3); CREATININE 0.8 mg/dL (0.6-1.3); POTASSIUM 3.7 mmol/L (3.5-4.5); TOTAL PROTEIN 7.3 g/dL (6.4-8.9)
[2024-03-13] MEDS: ONDANSETRON 4 MG/2 ML VIAL IVP STA (14:19)
[2024-03-13] MEDS: HYDROmorphone 1 MG/ML CARPUJECT IVP STA (14:20)
[2024-03-13] MEDS: KETOROLAC 15 MG/ML VIAL IVP STA (14:41)
[2024-03-13] MEDS: iohexoL-300 100 ML VIAL IVP ONE (14:56)
[2024-03-13] MEDS: DIATRIZOATE MEGLU/DIATRIZO SOD 30 ML BOTTLE PO ONE (14:57)
[2024-03-13 15:17] LABS: BILIRUBIN,URINE NEGATIVE (NEGATIVE); GLUCOSE, URINE (UA) NEGATIVE (NEGATIVE); KETONES,URINE (UA) NEGATIVE (NEGATIVE); LEUKOCYTE ESTERASE, URINE NEGATIVE (NEGATIVE); NITRITE,URINE NEGATIVE (NEGATIVE); OCCULT BLOOD,URINE SMALL (NEGATIVE); PH,URINE 7.5 PH (5.0-7.5); PROTEIN,URINE NEGATIVE (NEGATIVE); UROBILINOGEN,URINE 0.2 (NORMAL) E.U./dL (NORMAL)
[2024-03-13 15:21] LABS: CLARITY,URINE CLEAR (CLEAR)
[2024-03-13 15:29] LABS: WBC,URINE 0-3 /HPF (0-5)
[2024-03-13 15:32] LABS: BACTERIA,URINE Few /HPF (None Seen); SQUAMOUS EPITHELIAL CELL,UR FEW Squamous (<= Few)
[2024-03-13 16:15] VITALS: BP 120/75
--- NOTE | 2024-03-13 16:15 | CT Report ---
PROCEDURE: Abdomen/Pelvis W INDICATIONS: abd pain, IV and by mouth contrast CONTRAST: Omni 300 100ml TECHNIQUE: After the administration of intravenous contrast, a CT scan of the abdomen and pelvis was performed. Images were recorded and evaluated at appropriate window settings. Reformats: coronal and sagittal. F or radiation dose reduction, the following was used: automated exposure control, adjustment of mA and /or kV according to patient size. COMPARISON: 04/11/2022. FINDINGS: Image quality: Diagnostic. Lower chest: Unremarkable. Liver: No solid mass. Gallbladder: Cholelithiasis without wall thickening. Biliary tree: No intrahepatic or extrahepatic dilation, accounting for age. Spleen: No splenomegaly. Pancreas: No pancreatic ductal dilation. Adrenals: No adrenal nodule. Kidneys and ureters: No hydronephrosis. No renal cystic lesion which requires follow up. No solid mas s. Stomach, bowel and peritoneum: There are dilated loops of small bowel in the midabdomen with a transi tion point noted in the ileum. Findings are consistent with early or partial small bowel obstruction. Small bowel loops measure up to 2.8 cm, not abnormally dilated. However, small bowel obstruction is believed present. Remote colectomy with right-sided ileostomy.. Mild pelvic ascites.. Lymph nodes: No central or retroperitoneal adenopathy. Vessels: No infrarenal aortic aneurysm. Patent portal vein. PELVIS Reproductive organs: There is thickening of the endometrium with suggestion of possible involvement o f the myometrium by an endometrial process. Findings are suspicious for possible endometrial carcinom a. Reference axial image 110 of series 2 and coronal image 105 of series 6. Note is made of herniated small bowel loops at the ostomy site into the subcutaneous fat Bladder: No abnormal wall thickening, accounting for underdistention. Pelvic lymph nodes: No pelvic adenopathy by size criteria. Bones: No aggressive osseous abnormality. Degenerative change with anterolisthesis of L4 on L5. Old L 24 mild superior endplate compression.. Other: No significant ventral or inguinal hernia. IMPRESSION: 1. Findings are suspicious for endometrial carcinoma with possible myometrial involvement. 2. Remote colectomy. 3. Findings likely representing early or partial small bowel obstruction. 4. Cholelithiasis. Comment: Recommend [employer] consultation on a nonemergent basis. Reviewed by: Akbar Rivera MD on 03/13/2024 4:13 PM PDT Approved by: Akbar Rivera MD on 03/13/2024 4:13 PM PDT Station ID: [id number]
[2024-03-13 16:46] VITALS: O2SAT 99
== END 2024-03-13 16:39 | disposition home or self-care (01) ==
LOC: ED 13:04
DX: K56.600 Partial intestinal obstruction, unspecified as to cause (principal); C54.9 Malignant neoplasm of corpus uteri, unspecified; E78.00 Pure hypercholesterolemia, unspecified; E03.9 Hypothyroidism, unspecified; Z79.899 Other long term (current) drug therapy
CPT/HCPCS: 36415; 74177; 80053; 81001; 83690; 85025; 96374; 96375; 99284; J1170; Q9963; Q9967; 81003; 87086

== ENCOUNTER 2024-03-28 08:59 | Day surgery (SDC) | payer MEDICARE ==
[2024-03-28] MEDS: LACTATED RINGERS 1,000 ML IV ONE (09:14)
[2024-03-28] MEDS: ACETAMINOPHEN 325 MG TABLET PO ONE (09:26)
[2024-03-28] MEDS ORDERED: PROPOFOL 500 MG/50 ML 500 MG/50 ML VIAL ONE (10:32)
[2024-03-28] MEDS ORDERED: fentaNYL 100 MCG/2 ML VIAL ONE ×2 (10:32→11:42)
[2024-03-28] MEDS ORDERED: MIDAZOLAM 2 MG/2 ML VIAL ONE (10:32)
--- NOTE | 2024-03-28 11:18 | ANESTHESIA ---
Pre-Anesthesia VS, & Labs - Diagnosis post menopausal bleeding - Procedure hysteroscopy, D&C Vital Signs: Temp Pulse Resp BP Pulse Ox O2 Flow Rate 36.5 C 77 11 L 121/77 94 03/28/24 09:32 03/28/24 09:32 03/28/24 09:32 03/28/24 09:32 03/28/24 09:32 Height: 5 ft 4 in Weight (kg): 98.3 kg Body Mass Index: 37.2 BMI Classification: Obese - NPO >8 hours - Is Patient ?: No Home Medications and Allergies Home Medications: Ambulatory Orders Calcium Carbonate/Vitamin D3 [Calcium 600 mg-D3 20 Mcg Cplt] 1 each PO DAILY 03/21/24 Levothyroxine [Synthroid] 100 mcg PO QDAC 03/21/24 Magnesium Oxide [Magnesium] 400 mg PO DAILY 03/21/24 Misoprostol [Cytotec] 200 mcg PO ONCE 03/21/24 Omeprazole 20 mg PO DAILY 03/21/24 Psyllium Husk [Metamucil] 0.4 gm PO DAILY 03/21/24 Zinc Gluconate [Zinc] 50 mg PO DAILY 03/21/24 estradioL [Estradiol] 1 gm TD ONCE 03/21/24 Amitriptyline HCl 10 mg PO QPM PRN 03/29/19 Fluoxetine HCl [Prozac] 80 mg PO DAILY 03/29/19 Calcium Carbonate/Vitamin D3 [Calcium 600 mg-D3 20 Mcg Cplt] 1 each PO DAILY 03/21/24 Levothyroxine [Synthroid] 100 mcg PO QDAC 03/21/24 Magnesium Oxide [Magnesium] 400 mg PO DAILY 03/21/24 Misoprostol [Cytotec] 200 mcg PO ONCE 03/21/24 Omeprazole 20 mg PO DAILY 03/21/24 Psyllium Husk [Metamucil] 0.4 gm PO DAILY 03/21/24 Zinc Gluconate [Zinc] 50 mg PO DAILY 03/21/24 estradioL [Estradiol] 1 gm TD ONCE 03/21/24 Allergies/Adverse Reactions: Allergies Allergy/AdvReac Type Severity Reaction Status Date / Time Penicillins Allergy Unknown Unknown Verified 03/13/24 13:19 Sulfa (Sulfonamide Allergy Unknown Unknown Verified 03/13/24 13:19 Antibiotics) Anes History & Medical History - Anesthetic History Anesthesia Complications: reports: No previous complications - Medical History Cardiovascular: reports: High cholesterol Pulmonary: reports: None Gastrointestinal: reports: GERD, Ulcerative colitis, Other Urinary: reports: Incontinence, Frequency Neuro: reports: None Musculoskeletal: reports: Osteoarthritis, Chronic back pain, Other Endocrine/Autoimmune: reports: HyPOthyroidism Blood Disorders: reports: None Skin: reports: Other Smoking Status: Never smoker Psychosocial: reports: Depression, Anxiety History of Cancer?: No - Surgical History General: reports: Bowel surgery, Colonoscopy Eyes Ears Nose Throat (EENT): reports: Tonsil/Adenoidectomy Orthopedic: reports: Knee replacement, Arthroscopic surgery Exam General: Alert, Oriented x3, Cooperative, No acute distress Dental: Dentures full Upper Mouth Openin Fingerbreadth Neck Mobility: Normal Mallampati classification: II Thyromental Distance: 4-6 cm Mental/Cognitive Status: Alert/Oriented X3, Normal for patient Plan Anesthesia Type: General, Total IV Consent for Procedure(s) Verified and Reviewed: Yes Code Status: Attempt Resuscitation ASA classification: 2-Mild systemic disease Is this case an emergency?: No
[2024-03-28] MEDS ORDERED: ONDANSETRON 4 MG/2 ML VIAL ONE (12:00)
[2024-03-28] MEDS ORDERED: DEXAMETHASONE 4 MG/ML VIAL ONE (12:00)
[2024-03-28] MEDS ORDERED: ceFAZolin 1 GM VIAL ONE (12:17)
[2024-03-28] MEDS ORDERED: metroNIDAZOLE 500 MG/100 ML 500 MG/100 ML BAG ONE (12:18)
[2024-03-28] MEDS: LACTATED RINGERS 400 ML IV ONE (13:25)
[2024-03-28] MEDS ORDERED: NALOXONE 0.4 MG/ML VIAL IVP PRN (13:32)
[2024-03-28] MEDS ORDERED: fentaNYL 100 MCG/2 ML VIAL IVP PRN (13:32)
[2024-03-28] MEDS ORDERED: ONDANSETRON 4 MG/2 ML VIAL IVP PRN (13:32)
[2024-03-28] MEDS ORDERED: HYDROmorphone 0.5 MG/0.5 ML SYRINGE IVP PRN (13:32)
[2024-03-28] MEDS ORDERED: MORPHINE 2 MG/ML CARPUJECT IVP PRN (13:32)
[2024-03-28] MEDS ORDERED: ATROPINE ABBOJECT 1 MG/10 ML SYRINGE IVP PRN (13:32)
[2024-03-28] MEDS: HYDROmorphone 0.5 MG/0.5 ML SYRINGE ONE (13:37)
[2024-03-28] MEDS: HYDROmorphone 1 MG/ML CARPUJECT ONE (13:51)
--- NOTE | 2024-03-28 13:56 | Ultrasound Report ---
PROCEDURE: Pelvic Limited INDICATIONS: PELVIC US TECHNIQUE: Real-time transabdominal scanning was performed of the pelvic organs, with image documentation. COMPARISON: None. FINDINGS: Sonographic evaluation of the uterus for an operative procedure. IMPRESSION: Sonographic assistance for or procedure. Please see same day operative note. Reviewed by: Abrahan Hsieh MD on 03/28/2024 1:55 PM PDT Approved by: Abrahan Hsieh MD on 03/28/2024 1:55 PM PDT Station ID: [id number]
[2024-03-28] MEDS ORDERED: LACTATED RINGERS 1,000 ML IV SCH (14:00)
[2024-03-28] MEDS: LACTATED RINGERS 350 ML IV ONE (14:18)
[2024-03-28] MEDS ORDERED: oxyCODONE 5 MG TABLET ONE (14:46)
[2024-03-28] MEDS: oxyCODONE 5 MG TABLET PO PRN (14:47)
--- NOTE | 2024-03-28 14:48 | ANESTHESIA POST OP EVALUATION ---
Anesthesia Post Eval - Post Anesthesia Eval Vitals: Last Vital Signs Temp 36.5 C 03/28/24 14:27 Pulse 80 03/28/24 14:45 Resp 16 03/28/24 14:45 BP 96/61 03/28/24 14:45 Pulse Ox 94 03/28/24 14:45 O2 Flow Rate CV Function Including HR & BP: Stable Pain Control: Satisfactory Nausea & Vomiting: Negative Mental Status: Baseline Respiratory Status: Airway Patent Hydration Status: Satisfactory Anesthesia Complications: None
[2024-03-28 15:10] VITALS: O2SAT 99
[2024-03-28 15:21] VITALS: BP 122/75
--- NOTE | 2024-03-28 20:14 | OPERATIVE REPORT ---
Operative Report - General Procedure Date: 03/28/24 Planned Procedure: hysteroscopy D&C Pre-Op Diagnosis: abnormal findings on CT scan Procedure Performed: Hysteroscopy with removal of polyps under ultrasound guidance. Post Op Diagnosis: endometrial polyps, uterine fibroids - Procedure Note Primary Surgeon: Latosha Curiel MD Secondary Surgeon: Tim Farrell MD Anesthesia Provider: Janelle Ramirez CRNA Anesthesia Technique: General LMA Pathology: endometrial polyps/curettings IV Fluids (mL): 700 Estimated Blood Loss (mL): 50 Urine Output (mL): 0 Indications: CT scan done for abdominal pain with abnormal uterine findings concerning for malignancy. Unable to get into her cervix to get a biopsy in the office. Here today for D&C with hysteroscopy with anesthesia. She has signed the appropriate consent forms. She was given misoprostol the night before and the morning before surgery to try to make it easier to get into the cervix. She also used her estrogen vaginally for a week ever evening. Findings: Vaginal monroe are flat and atrophic. There is no protruding cervix. palpably it is there but not visible. Os is maybe a small dimple. Ultimately uterus is entered with hysteroscope. There is a polyp that looks like a small appendix attached to a small cecum. There are other small polyps. There is a tiny fibroid and then one about 2 cm that corresponds to the calcification seen anteriorly on ultrasound. These are all removed. prior to getting into the uterine cavity, I did place the scope into the posterior cul-de-sac inadvertently. There were no adhesions or stuck bowel. Complications: entry into the posterior cul-de-sac. - Other Other Information/Narrative: The patient is brought to the OR. Her iv was not working and had to be restarted using ultrasound. Once that was done, she was put to sleep and LMA placed. Her feet were put up in Billy type stirrups and she was prepped and draped. time out was done. Exam under anesthesia was done. speculum was placed and what I gathered was the cervix was grasped with a tenaculum. I sta rted with a lacrimal probe and was able to get into a cavity that I thought was the uterus. This was dilated with the dilators. It sounded 7 cm. When the hysteroscope was placed, I was in the peritoneal cavity. I took the scope out, repositioned. Again dilated and again ended up in the peritoneal cavity. I called for ultrasound to help me. With ultrasound, I was able to reposition the tenaculum and find the cervix. But it was still hard to see. catheter was placed in the bladder and 50 cc of saline was placed in the bladder. This improved ultrasound visualization greatly. I was able to get into the uterus with dilators up to 5 mm but was not able to get wider to pass the hysteroscope. I called Dr. Farrell to come and help me. He was able to dilate to 7 mm and get the scope into the uterus. Once in the proper place, there were multiple polyps seen. I used the Myosure Reach to remove them. There were also some small fibroids. The area on ultrasound that was the calcification noted on pre-op ultrasound and then again identified today was associated with a fibroid. This was partially removed with the Myosure. Once the cavity was clear, the instruments were removed. The ultrasound did notice some fluid behind the uterus. This was observed and did not seem to be increasing in size after it was initially noticed. We looked at it again after I was done and took a picture. it appeared the same. The patient was then awakened and brought to the PACU in stable condition. Fluid deficit was 800 cc. This case was very difficult and took approximately 100 minutes to complete. 3 times longer than a normal hysteroscopy.
== END 2024-03-28 09:00 | disposition home or self-care (01) ==
LOC: SDS 08:59
PROVIDERS: ATTEND Obstetrics & Gynecology
PROC: 0UB98ZZ Excision of Uterus, Via Natural or Artificial Opening Endoscopic (ICD-10-PCS; principal; 2024-03-28 10:30)
DX: N84.0 Polyp of corpus uteri (principal); Z93.2 Ileostomy status; E66.9 Obesity, unspecified; Z68.37 Body mass index [BMI] 37.0-37.9, adult; E78.00 Pure hypercholesterolemia, unspecified; K21.9 Gastro-esophageal reflux disease without esophagitis; K51.90 Ulcerative colitis, unspecified, without complications; E03.9 Hypothyroidism, unspecified; F32.A Depression, unspecified; F41.9 Anxiety disorder, unspecified
CPT/HCPCS: 58558; 76857; A9270; J1170; J7120